=== PATIENT | female | born 1945 | race Caucasian/White ===

== ENCOUNTER 2017-11-24 22:02 | Observation (INO) ==
[2017-11-24 22:50] LABS: Basophils % 0.4 %; Hematocrit 30.9 % (35.3-44.9); Hemoglobin 9.3 g/dL (11.5-15.4); Immature Granulocytes % 0.4 % (0-4); Immature Platelets 5.1 % (1.1-6.1); Lymphocytes # 2.6 K/mcL (0.6-4.6); Lymphocytes % 23.2 %; Mean Corpuscular HGB Conc 30.1 g/dL (31.6-35.5); Mean Corpuscular Volume 76.3 fL (83.0-100.0); Mean Platelet Volume 10.5 fL (9.4-12.4); Monocytes % 8.4 %; Neutrophils # 7.7 K/mcL (1.6-8.9); Platelet Count 449 K/mcL (140-400); Red Blood Count 4.05 M/mcL (3.82-4.97); Segmented Neutrophils % 67.6 %
[2017-11-24 23:05] LABS: Calcium 8.8 mg/dL (8.6-10.3); Potassium 2.9 mEq/L (3.5-5.1)
[2017-11-24 23:20] LABS: Thyroid Stimulating Hormone 4.401 mcIU/mL (0.340-5.600)
--- NOTE | 2017-11-24 23:31 | Emergency Department Note ---
Disposition Clinical Impression: Hypokalemia, Atrial ectopy Disposition: Admitted As Inpatient Condition: Good General Adult HPI - General Chief complaint: ED General Medical Stated complaint: called her at home and said potassium was low Time Seen by Provider: 11/24/17 22:41 Source: patient Mode of arrival: private vehicle Limitations: no limitations Nursing Notes Reviewed: Yes Vital Signs Reviewed: Yes - History of Present Illness HPI Narrative: 71-year-old female presents to the ER after being called for abnormal labs. Reports that she had labs drawn today for an upcoming appointment. She was called because her potassium was low. She states that she is on potassium supplementation but she ran out 3 days ago. She is got it refilled today. She reports having palpitations because normal for her. No chest pain or shortness of breath. No nausea or vomiting. No other complaints. Pt Subjective Complaint: Hypokalemia Onset (ago): Just [employer] Radiation: non-radiation Pain Scale: 0 Improves with: nothing Worsens with: nothing Associated symptoms: Reports: denies other symptoms Treatments Prior to Arrival: none - Related Data Home Medications Medication Instructions Recorded Confirmed Acetaminophen/Diphenhydramine 2 tab PO HS PRN 10/06/15 11/25/17 [Acetaminophen Pm Caplet] Lisinopril [Zestril] 20 mg PO BID 10/06/15 11/25/17 Potassium Chloride 20 meq PO TID 10/06/15 11/25/17 Previous Rx's Medication Instructions Recorded Metoprolol [Lopressor] 12.5 mg PO QPM #30 tablet 10/10/15 Metoprolol [Lopressor] 25 mg PO QAM #30 tablet 10/10/15 Sodium Bicarbonate 1,300 mg PO BID 30 Days tablet 10/10/15 Allergies Allergy/AdvReac Type Severity Reaction Status Date / Time ciprofloxacin Allergy Rash Verified 04/07/16 06:44 infliximab [From Remicade] Allergy Anaphylaxis Verified 10/06/15 18:37 All systems ED: reviewed and negative except as stated. Cardiovascular: Reports: palpitations. Denies: chest pain Respiratory: Denies: dyspnea Gastrointestinal: Denies: abdominal pain, nausea, vomiting Past Medical History - Past Medical History Attestation: Yes The following information was validated with the patient. Source: patient Medical history: Reports: hypertension, renal disease, other Surgical history: Reports: , cholecystectomy, other Psychiatric history: Reports: no psych history - Social History Smoking Status: Never smoker Smokeless Tobacco Status: No Alcohol use: Reports: none Drug use: Reports: none Physical Exam - General Limitations: no limitations General appearance: alert, in no apparent distress - Head Head exam: atraumatic, normocephalic - Eye Eye exam: Present: normal appearance - ENT ENT exam: normal exam - Neck Neck exam: Present: normal inspection, full ROM - Chest Chest inspection: Present: normal inspection, symmetric chest wall rise - Respiratory Respiratory exam: Present: normal lung sounds bilaterally - Cardiovascular Cardiovascular exam: Present: regular rate, irregular rhythm, normal heart sounds - Abdominal Exam Abdominal exam: Present: soft, Non-Tender. Absent: tenderness - Extremities Exam Extremities exam: Present: normal inspection, full ROM - Expanded Upper Extremity Exam Shoulder exam: Present: normal inspection, full ROM Arm exam: Present: normal inspection, full ROM Elbow exam: Present: normal inspection, full ROM Forearm/Wrist exam: Present: normal inspection, full ROM Hand exam: Present: normal inspection, full ROM - Expanded Lower Extremity Exam Hip/Pelvis exam: Present: normal inspection, full ROM Upper leg exam: Present: normal inspection, full ROM Knee exam: Present: normal inspection, full ROM Lower leg exam: Present: normal inspection, full ROM Ankle exam: Present: normal inspection, full ROM Foot/toe exam: Present: normal inspection, full ROM - Skin Skin exam: Present: warm, dry Course Course Narrative: Patient seen and examined. Vital signs reviewed. We will repeat labs, check serum chemistry, magnesium, EKG. Vital Signs Temperature 97.7 F 11/24/17 22:04 Pulse Rate 82 11/24/17 22:04 Respiratory Rate 20 11/24/17 22:04 Blood Pressure 189/71 11/24/17 22:04 O2 Sat by Pulse Oximetry 96 11/24/17 22:04 Temperature 98.1 F 11/25/17 02:49 Pulse Rate 64 11/25/17 02:49 Respiratory Rate 18 11/25/17 02:49 Blood Pressure 161/80 11/25/17 02:49 O2 Sat by Pulse Oximetry 98 11/25/17 02:49 Oxygen Delivery Oxygen Delivery Room Air Medical Decision Making - MDM Narrative Medical decision making narrative: 71-year-old female presents to the ER due to abnormal labs. Potassium of 2.5 this morning. Reports she has been out of her supplementation for 3 days. She is well-appearing here. Her EKG shows sinus rhythm with ectopy. She has a history of palpitations however is unsure what contribution her current hypokalemia may contribute to this. Repeat potassium 2.9. Patient given 40 mEq of IV and oral as well as oral magnesium for level of 1.5. Admitted to the hospitalist service for hypokalemia and telemetry. - Lab Data Lab results reviewed: Yes I reviewed the patient's lab results. Result diagrams: 11/25/17 03:05 11/25/17 03:05 Lab Results 11/24/17 11/24/17 11/24/17 Range/Units 22:40 22:40 22:40 WBC 11.4 H (4.3-11.1) K/mcL RBC 4.05 (3.82-4.97) M/mcL Hgb 9.3 L (11.5-15.4) g/dL Hct 30.9 L (35.3-44.9) % MCV 76.3 L (83.0-100.0) fL MCH 23.0 L (28.0-33.3) pg MCHC 30.1 L (31.6-35.5) g/dL RDW 18.0 H (11.5-14.5) % Plt Count 449 H (140-400) K/mcL MPV 10.5 (9.4-12.4) fL Immature Gran % 0.4 (0-4) % Seg Neutrophils % 67.6 % Lymphocytes % 23.2 % Monocytes % 8.4 % Eosinophils % 0.0 % Basophils % 0.4 % Neutrophils # 7.7 (1.6-8.9) K/mcL Lymphocytes # 2.6 (0.6-4.6) K/mcL Monocytes # 1.0 (0.0-1.3) K/mcL Eosinophils # 0.0 (0.0-0.6) K/mcL Basophils # 0.0 (0.0-0.2) K/mcL Immature Plt Fraction 5.1 (1.1-6.1) % Sodium 140 (136-145) mEq/L Potassium 2.9 L (3.5-5.1) mEq/L Chloride 111 H (98-107) mEq/L Carbon Dioxide 17 L (23-29) mEq/L BUN 10 (8-23) mg/dL Creatinine 1.10 (0.60-1.20) mg/dL Est GFR ( Amer) 60 (> 60) Est GFR (Non-Af Amer) 49 L (> 60) BUN/Creatinine Ratio 9 (6-26) Glucose 103 (70-105) mg/dL Calculated Osmolality 289 (280-300) Calcium 8.8 (8.6-10.3) mg/dL Magnesium 1.5 L (1.6-2.6) mg/dL Troponin I 0.03 (< 0.04) ng/mL TSH 4.401 (0.340-5.600) mcIU/mL - EKG Data EKG #1 EKG attestation: Yes I reviewed and interpreted this EKG. EKG results narrative: EKG demonstrates sinus rhythm with frequent PACs and PVCs with a rate of 89 bpm. Normal axis. Normal intervals. Normal R-wave progression. No gross ST elevations or depressions. No acute ischemic findings. Changes from previous EKG included ectopy. S.B.A.R. - S.B.A.R. Situation: Demographics, MOA Background: Presenting Complaint, Relevant PMH, Meds, & Allergies Assessment: Course and respsone to treatment, Exam Concerns, Patient/Family Expectation, Pertinant Lab Results Recommendation: Barrier(s) to disposition, Recommendation based on pending studies, treatments, or consults S.B.A.R. Report Given to: Dr. Pablo Attestation Statement - Attestation Attestation: I, Tommie Herring MD, personally evaluated this patient and discussed their management with the resident physician. I reviewed the resident's note and agree with the documented findings, medical decision making, and plan of care. 71-year-old female presents to the emergency department with a complaint of abnormal test results. Patient had some routine labs drawn today and her doctor called her and advised her that her potassium was 2.5 and she needed to come to the emergency department for treatment. Patient states that she feels fine and has no symptoms or complaints. She does have a history of hypokalemia and normally takes potassium supplements but apparently recently ran out of her potassium for a few days. On examination patient is a well-developed well-nourished well-appearing elderly female in no acute distress. She is alert and oriented 3. There is no cyanosis or diaphoresis. Breath sounds are clear and equal bilaterally. Heart regular with frequent ectopy. Abdomen soft and nontender with normal bowel sounds. Labs reviewed. EKG shows a normal sinus rhythm with frequent PACs and occasional PVCs. The hospitalist, Dr. Pablo, was consulted and accepted admission of the patient.
[2017-11-24 23:34] LABS: Magnesium 1.5 mg/dL (1.6-2.6)
[2017-11-24] MEDS ORDERED: Magnesium Oxide 400 MG TABLET PO ONE (23:39)
[2017-11-25] MEDS ORDERED: 0.9 % Sodium Chloride 500 ML IVC ONE
[2017-11-25] MEDS ORDERED: Acetaminophen 325 MG TABLET PO PRN (02:42)
[2017-11-25] MEDS ORDERED: Naloxone 0.4 MG/ML INJ IVP PRN (02:44)
--- NOTE | 2017-11-25 03:04 | Internal Med History&Physical ---
Date of Encounter: 11/25/17 Time of Encounter: 02:53 Assessment and Plan (1) Hypokalemia Current visit: Yes Status: Acute 71/female Background history of hypertension/Crohn's disease. Was getting routine labs for a PCP appointment. Noted that patient has a severe hypokalemia along with hypomagnesemia. She was asked to come to ER for further evaluation. She was replaced with the appropriate potassium. Upon arrival her potassium was 2.5 with magnesium of 1.5 Now her potassium is 2.9 and still ongoing IV replacement of potassium. Plan: We will continue replacing potassium for now. We will recheck labs tomorrow morning. Resume home medication. Home in 1-2 days. (2) Crohn disease Current visit: No Status: Acute This may be the cause for her hypokalemia/anemia. She will follow-up with gastroenterology here. Recommended patient to make an appointment with the professional athletes coach. Qualifiers: Gastrointestinal tract location: small and large intestine Digestive disease complication type: without complication Qualified Code(s): K50.80 - Crohn's disease of both small and large intestine without complications (3) Anemia Current visit: No Status: Acute Likely secondary to Crohn's disease. Qualifiers: Anemia type: unspecified type Qualified Code(s): D64.9 - Anemia, unspecified (4) DVT prophylaxis Current visit: Yes Status: Acute SCD This patient has a moderate to severe risk of worsening in spite of being on appropriate medication due to the chronic underlying comorbid status Internal Medicine - H&P: HPI Chief complaint: abnormal labs Admitted From: Emergency Dept Plans for Post Hospital Care: Home History of present illness: 71/F PCP: Dr Cheng Mathews ( residency clinic) GI : Dr Raman Brief PMH: HTN, Crohn's disease. HPI: patient has upcoming appointment with PCP on Monday and for that purpose she was in lab to get some lab work done which was ordered by PCP. Noted that her potassium was extremely low (2.5). She was asked to report ER for replacement of the same. patient does complain of occasional palpitations. Patient denies chest pain, shortness of breath, nausea, vomiting, abdominal pain , dizziness and diarrhea. Workup in the emergency room: Patient was evaluated in the emergency room. She was started on replacement of IV potassium along with oral replacement too. Her magnesium was 1.5 and she was given magnesium by mouth. Reason for admission: Replacement of potassium in a critically low potassium which was found as an incidental finding on the routine lab. Family history: Unremarkable Past Med Surg Social Fam HX - Past Medical History Medical history: hypertension, renal disease, other Psychiatric history: no psych history - Past Surgical History Surgical History: , cholecystectomy, other - Social History Smoking Status: Never smoker Smokeless Tobacco Status: No Alcohol use: none Drug use: none - Family History Mother Hx Family Endocrine Disorder: Yes (DIABETES MELLITUS.) Internal Medicine - H&P: Meds Acetaminophen/Diphenhydramine [Acetaminophen Pm Caplet] 2 tab PO HS PRN [History] Lisinopril [Zestril] 20 mg PO BID 10/06/15 [History] Potassium Chloride 20 meq PO TID 10/06/15 [History] Metoprolol [Lopressor] 12.5 mg PO QPM #30 tablet 10/10/15 [Rx] Metoprolol [Lopressor] 25 mg PO QAM #30 tablet 10/10/15 [Rx] Sodium Bicarbonate 1,300 mg PO BID 30 Days tablet 10/10/15 [Rx] 3 Allergy/AdvReac Type Severity Reaction Status Date / Time ciprofloxacin Allergy Rash Verified 04/07/16 06:44 infliximab [From Remicade] Allergy Anaphylaxis Verified 10/06/15 18:37 All Systems PM: A 10-system review of systems was performed and is negative for pertinent findings except as documented above in the HPI. - Constitutional Constitutional: fatigue, lethargy, no chills, no fever(s), no night sweats - EENT Eyes: no change in vision, no discharge, no pain, no photophobia Ears: no ear discharge, no ear pain, no tinnitus Nose, mouth and throat: no dysphagia, no nasal discharge, no neck pain, no sore throat - Cardiovascular Cardiovascular ROS IM: palpitations, no chest pain, no diaphoresis, no dyspnea, no lightheadedness, no syncope - Respiratory Respiratory: no cough, no dyspnea, no wheezing, no excessive phlegm production - Gastrointestinal Gastrointestinal: no abdominal pain, no diarrhea, no hematemesis, no hematochezia, no melena, no nausea, no vomiting - Genitourinary Genitourinary: no change in urinary stream, no dysuria, no flank pain, no hematuria - Musculoskeletal Musculoskeletal ROS IM: no numbness, no tingling - Integumentary Integumentary IM: no rash, no unusual bruising - Neurological Neurological ROS: no confusion, no convulsions, no focal weakness, no numbness, no tingling, no tremor(s) - Hematologic/Lymphatic Hematologic/Lymphatic: no easy bruising - Constitutional Vitals: Temp Pulse Resp BP Pulse Ox 98.1 F 64 18 161/80 98 11/25/17 02:49 11/25/17 02:49 11/25/17 02:49 11/25/17 02:49 11/25/17 02:49 General appearance: Present: A&O X 3, pleasant, no acute distress, answers questions appropriately - Head Head exam: Present: atraumatic, normocephalic - Eye Eye exam: Present: PERRL, conjuntiva pink, sclera anicteric Pupils: Present: PERRL - Neck Neck exam general surgery: Present: supple, trachea midline. Absent: lymphadenopathy - Respiratory Respiratory exam: Present: CTAB. Absent: accessory muscle use, rales, rhonchi, wheezes - Cardiovascular Cardiovascular exam: Present: RRR, +S1, +S2. Absent: diastolic murmur, gallop, rubs, systolic murmur - GI/Abdominal GI/Abdominal exam: Present: normal bowel sounds, soft, no peritoneal signs. Absent: distended, tenderness - Extremities Exam Extremities exam: Present: warm, radial pulses palpable and symmetrical. Absent : calf tenderness, cyanotic, pedal edema - Neurological Exam Neurological exam: Present: CN II-XII intact, oriented X3, no focal deficits. Absent: pronater drift, facial droop, speech deficit - Skin Skin exam: Present: dry, intact Internal Med - H&P Results - Labs CBC & Chem 7: 11/24/17 22:40 11/24/17 22:40
[2017-11-25 03:57] LABS: Basophils % 0.3 %; Eosinophils % 0.1 %; Hematocrit 28.8 % (35.3-44.9); Hemoglobin 8.4 g/dL (11.5-15.4); Immature Granulocytes % 0.2 % (0-4); Lymphocytes # 2.1 K/mcL (0.6-4.6); Lymphocytes % 22.2 %; Mean Corpuscular HGB Conc 29.2 g/dL (31.6-35.5); Mean Corpuscular Hemoglobin 22.3 pg (28.0-33.3); Mean Corpuscular Volume 76.6 fL (83.0-100.0); Monocytes # 0.9 K/mcL (0.0-1.3); Monocytes % 9.2 %; Neutrophils # 6.3 K/mcL (1.6-8.9); Platelet Count 368 K/mcL (140-400); Red Blood Count 3.76 M/mcL (3.82-4.97); Red Cell Distribution Width 17.9 % (11.5-14.5)
[2017-11-25 04:10] LABS: INR 1.1; Prothrombin Time 11.5 Seconds (9.4-12.1)
[2017-11-25 04:13] LABS: Activated Partial Thrombo Time 30.4 Seconds (26.0-36.0)
[2017-11-25 04:51] LABS: Alanine Aminotransferase 9 Units/L (7-52); Albumin 3.5 g/dL (3.5-5.7); Albumin/Globulin Ratio 1.2 (1.1-2.2); Alkaline Phosphatase 154 Units/L (34-104); Aspartate Amino Transferase 14 Units/L (13-39); BUN/Creatinine Ratio 10 (6-26); Bilirubin,Total 0.5 mg/dL (0.3-1.0); Blood Urea Nitrogen 9 mg/dL (8-23); Calcium 8.5 mg/dL (8.6-10.3); Carbon Dioxide 18 mEq/L (23-29); Chloride 112 mEq/L (98-107); Chol/HDL Ratio 2.6 (0-4.9); Cholesterol 166 mg/dL (< 200); Globulin 2.9 g/dL (2.4-3.5); Glucose 86 mg/dL (70-105); HDL Cholesterol 63 mg/dL (40-59); LDL Cholesterol,Calculated 76 mg/dL (0-99); Magnesium 1.4 mg/dL (1.6-2.6); Osmolality,Calculated 292 (280-300); Phosphorous 2.9 mg/dL (2.7-4.5); Potassium 2.8 mEq/L (3.5-5.1); Sodium 142 mEq/L (136-145); Total Protein 6.4 g/dL (6.4-8.9); Triglycerides 137 mg/dL (< 150); eGFR For African Americans > 60 (> 60); eGFR For Non-African Americans 59 (> 60)
[2017-11-25] MEDS ORDERED: Lisinopril 20 MG TABLET PO SCH (09:00)
[2017-11-25] MEDS ORDERED: Potassium Chloride 20 MEQ, Lidocaine 1% 2 ML in D5% in Water 250 ML IVPB ONE (10:52)
[2017-11-25 11:29] VITALS: BP 153/68
[2017-11-25 15:14] LABS: BUN/Creatinine Ratio 9 (6-26); Blood Urea Nitrogen 10 mg/dL (8-23); Calcium 8.9 mg/dL (8.6-10.3); Carbon Dioxide 21 mEq/L (23-29); Chloride 113 mEq/L (98-107); Glucose 114 mg/dL (70-105); Magnesium 2.1 mg/dL (1.6-2.6); Osmolality,Calculated 294 (280-300); Potassium 3.5 mEq/L (3.5-5.1); Sodium 142 mEq/L (136-145); eGFR For African Americans > 60 (> 60); eGFR For Non-African Americans 51 (> 60)
--- NOTE | 2017-11-25 18:33 | Discharge Summary ---
Date of Encounter: 11/25/17 Time of Encounter: 15:00 - Discharge Diagnosis (1) Hypokalemia Priority: Primary Status: Acute Comments: 1 patient patient's potassium is 2.5 and magnesium was 1.5 T to 2.9- we will replace. Potassium and recheck 2 initiated on oral potassium (2) Anemia Priority: Secondary Status: Acute Comments: This is chronic most likely related to Crohn's disease Qualifiers: Anemia type: unspecified type Qualified Code(s): D64.9 - Anemia, unspecified (3) Crohn disease Priority: Secondary Status: Acute Comments: 1 she will follow-up with gastroenterology as outpatient Qualifiers: Gastrointestinal tract location: small and large intestine Digestive disease complication type: without complication Qualified Code(s): K50.80 - Crohn's disease of both small and large intestine without complications (4) Hypomagnesemia Priority: Primary Status: Acute Comments: 1 1.5 replace magnesium and recheck - Discharge Medications Home Medications: Acetaminophen/Diphenhydramine [Acetaminophen Pm Caplet] 2 tab PO HS PRN [History] Lisinopril [Zestril] 20 mg PO BID 10/06/15 [History] Potassium Chloride 20 meq PO TID 10/06/15 [History] Metoprolol [Lopressor] 12.5 mg PO QPM #30 tablet 10/10/15 [Rx] Metoprolol [Lopressor] 25 mg PO QAM #30 tablet 10/10/15 [Rx] Sodium Bicarbonate 1,300 mg PO BID 30 Days tablet 10/10/15 [Rx] Allergies/Adverse Reactions: 3 Allergy/AdvReac Type Severity Reaction Status Date / Time ciprofloxacin Allergy Rash Verified 04/07/16 06:44 infliximab [From Remicade] Allergy Anaphylaxis Verified 10/06/15 18:37 Date of admission: 11/25/17 01:53 Primary care physician: Zaire Mathews DO Discharging clinician: Brianne Carl Anticipated date of discharge: 11/25/17 - Patient Status Disposition: Left Against Medical Advice Condition: Good Overall status at discharge: other - Discharge Instructions Follow Up With: Zaire Mathews DO [Primary Care Provider] - - Diet and Activity Activity: increase activity as tolerated Diet: other Interval History: 1 patient's potassium was 1.5 and potassium was 2.9. She was given 2 g magnesium and 20 mg of potassium. As patient was receiving medication she began to come agitated requesting to leave. Advised patient she was almost finished with her infusion and would just recheck and she could go home. Patient states I have things to do and I wanted to leave. Disconnected her IV as getting dressed at this time. Again advised patient to finish treatment explained to her that electrolytes imbalances can cause arrhythmias. Said she did not care she was going home she will follow up with her primary care doctor. Advised patient should be leaving AGAINST MEDICAL ADVICE again said she did not care and left Hospital course: Ms. Dimas is a 71 year old female patient has upcoming appointment with PCP on Monday she was getting lab work done was noted that her potassium was low she is advised to report to the ER for replacements. Patient does complain of some occasional palpitations on presentation. She was given IV potassium with oral replacements. He needs it was low 1.5 was given oral replacements. She was admitted for IV potassium replacement and recheck. During the infusion patient became agitated requesting to leave advised patient to stay patient left AGAINST MEDICAL ADVICE - Time Spent with Patient Total time spent providing and/or coordinating discharge services: - Constitutional Vitals: Temp Pulse Resp BP Pulse Ox 98.1 F 57 18 153/68 95 11/25/17 11:28 11/25/17 11:28 11/25/17 11:28 11/25/17 11:28 11/25/17 11:28 General appearance: Present: A&O X 3, pleasant, no acute distress, answers questions appropriately - Head Head exam: Present: atraumatic, normocephalic - Eye Eye exam: Present: PERRL, conjuntiva pink, sclera anicteric Pupils: Present: PERRL - Neck Neck exam general surgery: Present: supple, trachea midline. Absent: lymphadenopathy - Respiratory Respiratory exam: Present: CTAB. Absent: accessory muscle use, rales, rhonchi, wheezes - Cardiovascular Cardiovascular exam: Present: RRR, +S1, +S2. Absent: diastolic murmur, gallop, rubs, systolic murmur - GI/Abdominal GI/Abdominal exam: Present: normal bowel sounds, soft, no peritoneal signs. Absent: distended, tenderness - Extremities Exam Extremities exam: Present: warm, radial pulses palpable and symmetrical. Absent : calf tenderness, cyanotic, pedal edema - Neurological Exam Neurological exam: Present: CN II-XII intact, oriented X3, no focal deficits. Absent: pronater drift, facial droop, speech deficit - Skin Skin exam: Present: dry, intact
--- NOTE | 2017-12-01 07:49 | Electrocardiograph Report ---
[place] [id number] Test Date: 2017-11-24 Pat Name: Sherry Dimas Department: 102 Room: 3B Gender: F Cafe Assistant: Brandon : 1945 Requested By: Tommie Herring Order Number: [id number] Reading MD: Baljeet Blankenship DO Measurements Intervals [place] Rate: 89 P: VT: 0 QRS: 20 QRSD: 88 T: 20 QT: 426 QTc: 472 Interpretive Statements SINUS RHYTHM PACs AND PVCs NONSPECIFIC ST & T-WAVE ABNORMALITY PROLONGED QT INTERVAL Electronically Signed On 12-01-2017 7:48:03 EST by Baljeet Blankenship DO
== END 2017-11-25 14:50 | disposition left against medical advice (07) ==
LOC: EMEROO 22:02 → 3BNU 22:02
PROVIDERS: ADMIT Internal Medicine; ATTEND Registered Nurse

== ENCOUNTER 2018-01-10 19:05 | Inpatient (IN) ==
[2018-01-10] MEDS ORDERED: Ondansetron 4 MG/2 ML VIAL IVP ONE (20:40)
[2018-01-10] MEDS ORDERED: 0.9 % Sodium Chloride 1,000 ML IVC ONE ×2 (20:40→21:22)
[2018-01-10] MEDS ORDERED: Hyoscyamine 0.5 MG/ML MLS IVP ONE (20:42)
[2018-01-10 20:59] LABS: Albumin 4.1 g/dL (3.5-5.7); Albumin/Globulin Ratio 1.3 (1.1-2.2); Bilirubin,Direct 0.2 mg/dL (0.0-0.2); Bilirubin,Indirect 0.2 mg/dL (0.0-1.2); Bilirubin,Total 0.4 mg/dL (0.3-1.0); Calcium 8.2 mg/dL (8.6-10.3); Globulin 3.2 g/dL (2.4-3.5); Potassium 3.4 mEq/L (3.5-5.1); Total Protein 7.3 g/dL (6.4-8.9)
--- NOTE | 2018-01-10 21:17 | Emergency Department Note ---
Disposition Clinical Impression: Dehydration, Metabolic acidosis Crohn's colitis Qualifiers: Digestive disease complication type: unspecified complication Qualified Code(s) : K50.119 - Crohn's disease of large intestine with unspecified complications Acute renal failure Qualifiers: Acute renal failure type: unspecified Qualified Code(s): N17.9 - Acute kidney failure, unspecified Abdominal pain Qualifiers: Abdominal location: generalized Qualified Code(s): R10.84 - Generalized abdominal pain Disposition: Admitted As Inpatient Condition: Fair Time of Disposition: 23:23 Abdominal Pain HPI - General Chief Complaint: ED Abdominal Pain Stated Complaint: Abd pain Time Seen by Provider: 01/10/18 20:04 Source: patient Mode of arrival: ambulatory Limitations: no limitations Nursing Notes Reviewed: Yes Vital Signs Reviewed: Yes - History of Present Illness HPI Narrative: Patient is a 72-year-old female who presents to [facility] ED with a chief complaint of generalized abdominal pain, persistent nausea vomiting and diarrhea for the last 2 weeks. Patient states she has a history of Crohn's disease and this feels like a Crohn's flareup as well as worsening kidney function. 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 Raman in the past but is not currently on any Crohn's medications. States she has felt intermittent hot and cold. Denies any chest pain, difficulty breathing. Patient has had multiple abdominal surgeries in the past. Pt Subjective Complaint: abdominal pain Onset (ago): week(s) Consistency: Worsening Location: diffuse Pain Severity: moderate Pain Scale: 8 Quality: cramping Radiation: none Migration to: no migration Improves with: nothing Worsens with: nothing Associated symptoms: Reports: nausea, vomiting, diarrhea. Denies: constipation , dysuria Treatments prior to arrival: none - Related Data Home Medications Medication Instructions Recorded Confirmed Acetaminophen/Diphenhydramine 2 - 3 tab PO HS 10/06/15 01/10/18 [Acetaminophen Pm Caplet] Lisinopril [Zestril] 20 mg PO BID 10/06/15 01/10/18 Potassium Chloride 20 meq PO TID 10/06/15 01/10/18 Metoprolol [Lopressor] 12.5 mg PO BID 01/10/18 01/10/18 Ranitidine HCl [Acid Dump Truck Driver Off [address]] 150 mg PO DAILY 01/10/18 01/10/18 Sodium Bicarbonate 1,300 mg PO BID 01/10/18 01/10/18 Allergies Allergy/AdvReac Type Severity Reaction Status Date / Time ciprofloxacin Allergy Rash Verified 04/07/16 06:44 infliximab [From Remicade] Allergy Anaphylaxis Verified 10/06/15 18:37 All systems ED: reviewed and negative except as stated. Abdominal Pain PMH - Past Medical History Medical history: Reports: hyperlipidemia, hypertension, renal disease, other Female Surgical History: Reports: , cholecystectomy, hysterectomy, Tonsillectomy, other Psychiatric history: Reports: anxiety, depression - Social History Smoking status: Former smoker Alcohol use: Reports: rarely Drug use: Reports: none Physical Exam - General Limitations: no limitations General appearance: alert - Head Head exam: atraumatic, normocephalic, normal inspection - Eye Eye exam: Present: normal appearance, EOMI - ENT ENT exam: normal exam, normal oropharynx, mucous membranes moist - Neck Neck exam: Present: normal inspection, full ROM, trachea midline - Chest Chest inspection: Present: normal inspection, symmetric chest wall rise - Respiratory Respiratory exam: Present: normal lung sounds bilaterally - Cardiovascular Cardiovascular exam: Present: normal rhythm, tachycardia - Abdominal Exam Abdominal exam: Present: soft, tenderness, normal bowel sounds Abdominal tenderness: Present: diffuse, moderate - Extremities Exam Extremities exam: Present: normal inspection, full ROM. Absent: tenderness, pedal edema - Back Exam Back exam: Present: normal inspection, full ROM, tenderness (chronic) - Neurological Exam Neurological exam: Present: alert, oriented X3 - Psychiatric Psychiatric exam: Present: normal affect, normal mood - Skin Skin exam: Present: warm, dry, intact, normal color Course Course Narrative: Patient seen and examined. Patient went generalized abdominal pain and history of Crohn's disease. She has been having persistent nausea, vomiting, diarrhea so there is concern for dehydration. IV fluid 1 L bolus ordered. Abdominal labs, CT abdomen and pelvis without contrast ordered. Levsin ordered for pain and Zofran for nausea. - Reevaluation(s) Reevaluation #1: Patient's lab work shows acute renal failure with a creatinine greater than 8. A second liter of IV fluids ordered and a second IV was placed. A dose of 125 mg Solu-Medrol given. CT of the abdomen/pelvis shows mild colitis. Patient ordered a dose of Zosyn. I discussed with hospitalist Dr. Fu who has accepted patient for admission. Time: 23:22 Vital Signs Temperature 97.3 F L 01/10/18 19:07 Pulse Rate 138 01/10/18 19:07 Respiratory Rate 22 01/10/18 19:07 Blood Pressure 124/85 01/10/18 19:07 O2 Sat by Pulse Oximetry 97 01/10/18 19:07 Temperature 97.3 F L 01/10/18 19:07 Pulse Rate 88 01/10/18 23:08 Respiratory Rate 16 01/10/18 23:08 Blood Pressure 119/50 01/10/18 23:08 O2 Sat by Pulse Oximetry 98 01/10/18 23:08 Oxygen Delivery Oxygen Delivery Room Air Abdominal Pain - Medical Records Medical records reviewed: Yes I reviewed the patient's medical records. - Lab Data Lab results reviewed: Yes I reviewed the patient's lab results. Result diagrams: 01/10/18 21:35 01/10/18 20:17 Lab Results 01/10/18 01/10/18 01/10/18 Range/Units 20:17 20:17 21:35 WBC 19.5 H (4.3-11.1) K/mcL RBC 5.15 H (3.82-4.97) M/mcL Hgb 12.4 (11.5-15.4) g/dL Hct 42.8 (35.3-44.9) % MCV 83.1 D (83.0-100.0) fL MCH 24.1 L (28.0-33.3) pg MCHC 29.0 L (31.6-35.5) g/dL RDW 20.5 H (11.5-14.5) % Plt Count 386 (140-400) K/mcL MPV 10.5 (9.4-12.4) fL Immature Gran % 0.9 (0-4) % Seg Neutrophils % 86.5 % Lymphocytes % 7.5 % Monocytes % 4.9 % Eosinophils % 0.0 % Basophils % 0.2 % Neutrophils # 16.9 H (1.6-8.9) K/mcL Lymphocytes # 1.5 (0.6-4.6) K/mcL Monocytes # 1.0 (0.0-1.3) K/mcL Eosinophils # 0.0 (0.0-0.6) K/mcL Basophils # 0.0 (0.0-0.2) K/mcL Nucleated RBCs/100 WBC 0.2 H (0) /100 WBC Platelet Estimate Normal (Normal) Immature Plt Fraction 2.6 (1.1-6.1) % Sodium 136 (136-145) mEq/L Potassium 3.4 L (3.5-5.1) mEq/L Chloride 112 H (98-107) mEq/L Carbon Dioxide 6 L* (23-29) mEq/L BUN 60 H (8-23) mg/dL Creatinine 8.24 H (0.60-1.20) mg/dL Est GFR ( Amer) 6 L (> 60) Est GFR (Non-Af Amer) 5 L (> 60) BUN/Creatinine Ratio 7 (6-26) Glucose 133 H (70-105) mg/dL Calculated Osmolality 301 H (280-300) Lactic Acid (0.5-2.2) mmol/L Calcium 8.2 L (8.6-10.3) mg/dL Total Bilirubin 0.4 (0.3-1.0) mg/dL Direct Bilirubin 0.2 (0.0-0.2) mg/dL Indirect Bilirubin 0.2 (0.0-1.2) mg/dL AST 9 L (13-39) Units/L ALT 10 (7-52) Units/L Alkaline Phosphatase 212 H (34-104) Units/L Serum Total Protein 7.3 (6.4-8.9) g/dL Albumin 4.1 (3.5-5.7) g/dL Globulin 3.2 (2.4-3.5) g/dL Albumin/Globulin Ratio 1.3 (1.1-2.2) Amylase 277 H (29-103) Units/L Lipase 224 H (11-82) Units/L Specimen Rejected MCV Delta 01/10/18 Range/Units 21:48 WBC (4.3-11.1) K/mcL RBC (3.82-4.97) M/mcL Hgb (11.5-15.4) g/dL Hct (35.3-44.9) % MCV (83.0-100.0) fL MCH (28.0-33.3) pg MCHC (31.6-35.5) g/dL RDW (11.5-14.5) % Plt Count (140-400) K/mcL MPV (9.4-12.4) fL Immature Gran % (0-4) % Seg Neutrophils % % Lymphocytes % % Monocytes % % Eosinophils % % Basophils % % Neutrophils # (1.6-8.9) K/mcL Lymphocytes # (0.6-4.6) K/mcL Monocytes # (0.0-1.3) K/mcL Eosinophils # (0.0-0.6) K/mcL Basophils # (0.0-0.2) K/mcL Nucleated RBCs/100 WBC (0) /100 WBC Platelet Estimate (Normal) Immature Plt Fraction (1.1-6.1) % Sodium (136-145) mEq/L Potassium (3.5-5.1) mEq/L Chloride (98-107) mEq/L Carbon Dioxide (23-29) mEq/L BUN (8-23) mg/dL Creatinine (0.60-1.20) mg/dL Est GFR ( Amer) (> 60) Est GFR (Non-Af Amer) (> 60) BUN/Creatinine Ratio (6-26) Glucose (70-105) mg/dL Calculated Osmolality (280-300) Lactic Acid 2.0 (0.5-2.2) mmol/L Calcium (8.6-10.3) mg/dL Total Bilirubin (0.3-1.0) mg/dL Direct Bilirubin (0.0-0.2) mg/dL Indirect Bilirubin (0.0-1.2) mg/dL AST (13-39) Units/L ALT (7-52) Units/L Alkaline Phosphatase (34-104) Units/L Serum Total Protein (6.4-8.9) g/dL Albumin (3.5-5.7) g/dL Globulin (2.4-3.5) g/dL Albumin/Globulin Ratio (1.1-2.2) Amylase (29-103) Units/L Lipase (11-82) Units/L Specimen Rejected - Radiology Data Radiology results reviewed: Yes I reviewed the patient's radiology results. Abdomen/Pelvis CT 01/10/18 21:02 IMPRESSION: 1. Findings of mild diffuse colitis, likely infectious or inflammatory. 2. Stable moderate hiatal hernia. D/ / Giullermo Mccormick / Guillermo Mccormick Interpreting Provider: Guillermo Mccormick Critical Care Time Critical Care Time: Yes Total Critical Care Time: 35 Attestation: The high probability of a clinically significant, sudden or life threatening deterioration of the [GI] system(s) required my full and direct attention, intervention and personal management. The aggregate critical care time was [35] minutes. This time is in addition to time spent performing reported procedures but includes the following: [x] Data Review and interpretation [x] Patient assessment and monitoring of vital signs [x] Documentation [x] Medication orders and management Attestation Statement - Attestation Attestation: I examined this patient and my medical decision-making was reviewed with the Resident Physician, Dr. Choudhary. I agree with the documented findings, disposition and treatment plan as described except to the extent set forth below. Patient is a 72-year-old white female who presents to the emergency department with a two-week history of nausea vomiting and diarrhea. Patient does have a history of colitis and has had multiple abdominal surgeries in the past related to various complications of her Crohn's disease. Patient is not on any specific medications for her Crohn's and recently was seen by her doctor for her GI symptoms and was placed on a short course of steroids. Patient states she did get some mild improvement at the onset but as she tapered had return of her symptoms. Patient states her family has had vomiting and diarrheal illness at home and she began with similar symptoms 2 weeks ago and has not improved. Patient states she has not had much appetite decreased by mouth intake and generally weak all over. Patient is quite tachycardic on arrival to the ED but blood pressure stable. I agree with patient's physical exam findings as documented. Patient was placed on night monitor and IV fluid resuscitation was initiated and she was given pain meds and antiemetics. Lab evaluation was obtained and CT imaging of her abdomen and pelvis was performed without contrast. Patient's lab findings show leukocytosis with left shift, has significant acute kidney injury with a creatinine greater than 8 and elevated BUN/creatinine. Patient with a metabolic acidosis with bicarbonate 26. Blood sugars normal. CT scan shows evidence of colitis no other acute abdominal pathology was appreciated. Patient was covered with antibiotics for the colitis for any possible bacterial cause with the ongoing length of symptoms, was given a dose of steroids for possible coexistent Crohn's flare. Patient's heart rate is improving with IV fluids. Case was discussed with hospitalist who accepted patient for admission.
[2018-01-10 21:43] LABS: Basophils % 0.2 %; Hematocrit 42.8 % (35.3-44.9); Hemoglobin 12.4 g/dL (11.5-15.4); Immature Granulocytes % 0.9 % (0-4); Immature Platelets 2.6 % (1.1-6.1); Lymphocytes # 1.5 K/mcL (0.6-4.6); Lymphocytes % 7.5 %; Mean Corpuscular Hemoglobin 24.1 pg (28.0-33.3); Mean Corpuscular Volume 83.1 fL (83.0-100.0); Mean Platelet Volume 10.5 fL (9.4-12.4); Monocytes % 4.9 %; Neutrophils # 16.9 K/mcL (1.6-8.9); Nucleated Red Blood Cells 0.2 /100 WBC (0); Platelet Count 386 K/mcL (140-400); Red Blood Count 5.15 M/mcL (3.82-4.97); Red Cell Distribution Width 20.5 % (11.5-14.5); Segmented Neutrophils % 86.5 %
[2018-01-10 22:10] LABS: Platelet Estimate Normal (Normal)
[2018-01-10] MEDS ORDERED: Piperacillin/Tazobactam 3.375 GM in 0.9 % Sodium Chloride Mini Bag 100 ML IVPB ONE (22:23)
[2018-01-10] MEDS ORDERED: methylPREDNISolone 125 MG/2 ML VIAL IVP ONE (22:23)
[2018-01-10] MEDS ORDERED: SODIUM CHLORIDE 0.9% IVPB ONE (22:51)
[2018-01-10] MEDS ORDERED: KETAMINE IVPB ONE (22:51)
--- NOTE | 2018-01-10 23:24 | Event Note ---
Date of Encounter: 01/11/18 Time of Encounter: 23:24 Patient was seen and examined. I agree with the H&P as written by the Resident Physician. Patient with signs of dehydration on exam and on labs. generalized abdominal tenderness but no rebounds. Says not urinated in a week or so. Tells me she was on Pentasa, Humira, and Remicade at some point in the past but nothing the last 5 years or so. Has acute renal failure due to GI losses. ??crohn's flair. Will admit and aggressively hydrate. Will add some bicarbs after 2 L c/s GI (sees Dr. Raman) and nephrology check stool panel Check ESR/CRP IV abx IV steroids for crohn's flare Repeat labs in 2-4 hours to assess kidney function
[2018-01-10] MEDS ORDERED: Acetaminophen 325 MG TABLET PO PRN (23:45)
[2018-01-10] MEDS ORDERED: Naloxone 0.4 MG/ML INJ IVP PRN (23:45)
--- NOTE | 2018-01-11 00:19 | Internal Med History&Physical ---
Date of Encounter: 01/11/18 Time of Encounter: 23:20 Assessment and Plan (1) Acute renal failure superimposed on stage 3 chronic kidney disease Current visit: Yes Status: Acute Creatinine 8.24, baseline appears around 1.0. BUN 60. History of CTD stage III , follows with Dr. Mary Jo CHEUNG in the setting of GI loss/colitis with nausea, vomiting, diarrhea, and very poor oral intake. Patient appears very dehydrated Received 2 L normal saline emergency department. We will recheck labs. Continue IV hydration - switch to bicarb in half NS with CO2 of 6 Avoid nephrotoxins, renally dose medications as needed Consult nephrology for further recommendations and management Qualifiers: Acute renal failure type: unspecified Qualified Code(s): N17.9 - Acute kidney failure, unspecified; N18.3 - Chronic kidney disease, stage 3 (moderate) ; N18.3 - Chronic kidney disease, stage 3 (moderate) (2) Colitis Current visit: Yes Status: Acute History of Crohn's disease. Previously following with Dr. Raman. CT shows mild colitis, infectious versus inflammatory etiology. No evidence of bowel obstruction With her history I am more inclined to think this is a Crohn's flare, however infectious source cannot be ruled out at this time. GI panel pending - Patient is afebrile. Leukocytosis at 19.5, however interpretation is complicated because the patient reports taking prednisone at home recently Given steroids in the emergency department. We will continue methylprednisolone 60 mg IV daily CRP and ESR are unremarkable. Provide pain control and nausea control Received Zosyn in ED, will continue for now as patient has an allergy to Cipro. Consult gastroenterology for further recommendations and management (3) Metabolic acidosis Current visit: Yes Status: Chronic CO2 is 6, with a gap of 18. Likely secondary to renal failure and GI losses. Continue to provide IV hydration and symptomatic control. Potassium mildly decreased at 3.4. Mag 1.5. Replace potassium and magnesium. Add bicarb in half NS for replacement of CO2 (4) Crohn disease Current visit: Yes Status: Acute History of Crohn's disease, currently not on any preventative therapies. See plan as above for colitis. Qualifiers: Gastrointestinal tract location: small and large intestine Digestive disease complication type: without complication Qualified Code(s): K50.80 - Crohn's disease of both small and large intestine without complications (5) Hypertension Current visit: Yes Status: Acute Normotensive. Denies chest pain, headaches, changes in vision. Continue home meds Qualifiers: Hypertension type: unspecified Qualified Code(s): I10 - Essential (primary ) hypertension (6) DVT prophylaxis Current visit: Yes Status: Acute Subcutaneous heparin Internal Medicine - H&P: HPI Chief complaint: Abdominal pain Admitted From: Emergency Dept History of present illness: Ms. Dimas is a 72 year old female with PMH of Crohn's disease, hypertension, hyperlipidemia, and CKD stage 3, presented to the emergency department with a two-week history of generalized crampy abdominal pain. Associated with nausea, vomiting, diarrhea, and chills. Emesis is nonbilious and nonbloody. There are no aggravating or alleviating factors. Also reporting chills, fatigue, lightheadedness, and generalized back pain. She states the last time she felt like this she was treated for Crohn's flare and poor kidney function. She has had very poor oral intake of food or fluids. She reports decreased urine output. She states that over the past several days she has taken a prednisone taper that she had home. She denies recent antibiotic use. Denies taking any preventative medications for Crohn's. Previously tried Remicade. Denies other complaints. Denies change in vision, chest pain, dyspnea, cough, hematochezia, melena, dysuria, hematuria, or leg pain/swelling. Past Med Surg Social Fam HX - Past Medical History Medical history: hyperlipidemia, hypertension, renal disease, other Psychiatric history: anxiety, depression - Past Surgical History Surgical History: , cholecystectomy, other - Social History Smoking Status: Former smoker Smokeless Tobacco Status: No Alcohol use: rarely Drug use: none - Family History Mother Adopted: No Living Status: Hx Family Cardiac Disorders: Yes Hx Family Respiratory Disorders: No Hx Family Cancer: No Hx Family GI Disorders: Yes Hx Family Endocrine Disorder: Yes (DIABETES MELLITUS.) Hx Family Neuromuscular Disorders: No Hx Family Neurologic Disorders: Yes (STROKE) Hx Family HEENT Disorders: No Hx Family Autoimmune Disorders: No Internal Medicine - H&P: Meds Acetaminophen/Diphenhydramine [Acetaminophen Pm Caplet] 2 - 3 tab PO HS [History] Lisinopril [Zestril] 20 mg PO BID 10/06/15 [History] Potassium Chloride 20 meq PO TID 10/06/15 [History] Metoprolol [Lopressor] 12.5 mg PO BID 01/10/18 [History] Ranitidine HCl [Acid Coal Picker] 150 mg PO DAILY 01/10/18 [History] Sodium Bicarbonate 1,300 mg PO BID 01/10/18 [History] 3 Allergy/AdvReac Type Severity Reaction Status Date / Time ciprofloxacin Allergy Rash Verified 04/07/16 06:44 infliximab [From Remicade] Allergy Anaphylaxis Verified 10/06/15 18:37 All Systems PM: A 10-system review of systems was performed and is negative for pertinent findings except as documented above in the HPI. - Constitutional Vitals: Temp Pulse Resp BP Pulse Ox 97.3 F L 88 18 120/62 98 01/10/18 19:07 01/10/18 23:08 01/10/18 23:41 01/10/18 23:41 01/10/18 23:08 General appearance: Present: mild distress, A&O X 3, answers questions appropriately - Head Head exam: Present: atraumatic, normocephalic - Eye Eye exam: Present: EOMI, PERRL, conjuntiva pink, sclera anicteric - ENT ENT exam: Present: mucous membranes dry - Neck Neck exam general surgery: Present: supple, trachea midline. Absent: lymphadenopathy - Respiratory Respiratory exam: Present: CTAB. Absent: accessory muscle use, rales, rhonchi, wheezes - Cardiovascular Cardiovascular exam: Present: RRR, +S1, +S2. Absent: diastolic murmur, systolic murmur - GI/Abdominal GI/Abdominal exam: Present: guarding, normal bowel sounds, tenderness (Diffuse) , no peritoneal signs. Absent: distended, firm, rebound, rigid - Extremities Exam Extremities exam: Present: warm, radial pulses palpable and symmetrical. Absent : calf tenderness, cyanotic, pedal edema - Neurological Exam Neurological exam: Present: CN II-XII intact, oriented X3, no focal deficits. Absent: facial droop, speech deficit - Skin Skin exam: Present: dry, intact Internal Med - H&P Results - Labs CBC & Chem 7: 01/11/18 01:06 01/11/18 01:06
[2018-01-11] MEDS: *HR* Heparin 5,000 UNIT/ML VIAL SQ SCH ×4 (00:34→20:20)
[2018-01-11] MEDS ORDERED: 0.9 % Sodium Chloride 1,000 ML IVC ONE (00:48)
[2018-01-11] MEDS ORDERED: 0.9 % Sodium Chloride w KCl 20 MEQ/1,000 ML MLS IVC SCH (01:00)
[2018-01-11 01:23] LABS: Basophils % 0.1 %; Hematocrit 35.7 % (35.3-44.9); Lymphocytes # 0.9 K/mcL (0.6-4.6); Lymphocytes % 6.3 %; Mean Corpuscular HGB Conc 29.4 g/dL (31.6-35.5); Mean Corpuscular Hemoglobin 24.1 pg (28.0-33.3); Mean Corpuscular Volume 82.1 fL (83.0-100.0); Monocytes # 0.3 K/mcL (0.0-1.3); Monocytes % 1.8 %; Neutrophils # 12.9 K/mcL (1.6-8.9); Nucleated Red Blood Cells 0.1 /100 WBC (0); Platelet Count 308 K/mcL (140-400); Red Blood Count 4.35 M/mcL (3.82-4.97); Segmented Neutrophils % 90.8 %
[2018-01-11 01:26] LABS: Hemoglobin 10.5 g/dL (11.5-15.4)
[2018-01-11 01:49] LABS: Calcium 7.3 mg/dL (8.6-10.3); Magnesium 1.5 mg/dL (1.6-2.6); Potassium 3.5 mEq/L (3.5-5.1)
[2018-01-11] MEDS: Ondansetron 4 MG/2 ML VIAL IVP PRN ×3 (02:01→15:24)
[2018-01-11] MEDS ORDERED: Sodium Bicarbonate 50 MEQ in 0.45 % Sodium Chloride 1,000 ML IVC SCH (02:15)
[2018-01-11] MEDS: *HR* HYDROcodone/Acet 5/325 mg TABLET PO PRN ×3 (02:39→15:24)
[2018-01-11 07:16] LABS: Albumin 3.5 g/dL (3.5-5.7); Albumin/Globulin Ratio 1.4 (1.1-2.2); Bilirubin,Total 0.3 mg/dL (0.3-1.0); Calcium 7.6 mg/dL (8.6-10.3); Globulin 2.5 g/dL (2.4-3.5); Potassium 3.6 mEq/L (3.5-5.1)
[2018-01-11 07:29] LABS: Basophils % 0.1 %; Hematocrit 34.3 % (35.3-44.9); Immature Granulocytes % 1.2 % (0-4); Lymphocytes # 0.9 K/mcL (0.6-4.6); Lymphocytes % 11.2 %; Mean Corpuscular HGB Conc 29.2 g/dL (31.6-35.5); Mean Corpuscular Hemoglobin 23.7 pg (28.0-33.3); Mean Corpuscular Volume 81.3 fL (83.0-100.0); Mean Platelet Volume 10.9 fL (9.4-12.4); Monocytes # 0.1 K/mcL (0.0-1.3); Monocytes % 0.9 %; Nucleated Red Blood Cells 0.4 /100 WBC (0); Platelet Count 266 K/mcL (140-400); Red Blood Count 4.22 M/mcL (3.82-4.97); Segmented Neutrophils % 86.6 %
[2018-01-11] MEDS ORDERED: Lisinopril 20 MG TABLET PO SCH (09:00)
[2018-01-11] MEDS ORDERED: methylPREDNISolone 125 MG/2 ML VIAL IVP SCH (09:00)
[2018-01-11] MEDS ORDERED: metroNIDAZOLE 500 MG TABLET PO SCH (09:00)
[2018-01-11] MEDS: MethylPREDNISolone 40 MG/ML VIAL IVP SCH ×3 (09:13→23:14)
[2018-01-11] MEDS: Famotidine 20 MG TABLET PO SCH (09:16)
[2018-01-11 09:54] LABS: Estimated Average Glucose 108 mg/dl; Hemoglobin A1C 5.4 %
--- NOTE | 2018-01-11 10:51 | Nephrology Consult Note ---
Date of Encounter: 01/11/18 Time of Encounter: 10:20 Assessment and Plan (1) FLORENTIN (acute kidney injury) Current Visit: No Status: Acute Oliguric FLORENTIN in setting of GI losses superimposed on CKD 3, baseline creat 1.2- 1.5. Will get stat Renal US, place lopez catheter. Continue current IV fluids.Avoid nephrotoxins, Accurate I&O's. No immediate need for HD. Will continue to monitor. History of Present Illness - Reason for Consult Acute Kidney Injury - History of Present Illness Ms. Dimas is a 72 year old female who presented to ER yesterday with abdominal pain, vomiting, diarrhea for past two weeks with a 33 pound weight loss. States for past several days had not been able to void urine and has not emptied bladder since arriving at hospital. Other PMH-crohn's, hyperlipidemia, hypertension, renal disease, , cholecystectomy, hysterectomy, Tonsillectomy, anxiety, depression. Initial Creatinine 8.25, today 7.47. BUN 60. CO2 6, gap 18. Received 2 liters normal saline. Then IV 0.45 NS with Bicarb 50 meq, now changed to D5W with 150 meq Bicarb at 125 cc/hr. CT Abd/Pelvis- mild diffuse colitis, likely infectious or inflammatory. Remains oliguric, though states was able to eat breakfast this morning and keep down. She denies any NSAID use. She was seen in hospital back in March 2016 for similar situation of FLORENTIN superimposed on CKD, baseline creat 1.2-1.5 and was followed by GI for Crohn's flare. Past Med Surg Social Fam HX - Past Medical History Medical history: hyperlipidemia, hypertension, renal disease, other Psychiatric history: anxiety, depression - Past Surgical History Surgical History: , cholecystectomy, other - Social History Smoking Status: Former smoker Smokeless Tobacco Status: No Alcohol use: rarely Drug use: none - Family History Mother Adopted: No Living Status: Hx Family Cardiac Disorders: Yes Hx Family Respiratory Disorders: No Hx Family Cancer: No Hx Family GI Disorders: Yes Hx Family Endocrine Disorder: Yes (DIABETES MELLITUS.) Hx Family Neuromuscular Disorders: No Hx Family Neurologic Disorders: Yes (STROKE) Hx Family HEENT Disorders: No Hx Family Autoimmune Disorders: No Medications and Allergies Acetaminophen/Diphenhydramine [Acetaminophen Pm Caplet] 2 - 3 tab PO HS 12/29/ 15 [History] Lisinopril [Zestril] 20 mg PO BID 10/06/15 [History] Potassium Chloride 20 meq PO TID 10/06/15 [History] Metoprolol [Lopressor] 12.5 mg PO BID 01/10/18 [History] Ranitidine HCl [Acid Second Cutter] 150 mg PO DAILY 01/10/18 [History] Sodium Bicarbonate 1,300 mg PO BID 01/10/18 [History] 3 Allergy/AdvReac Type Severity Reaction Status Date / Time ciprofloxacin Allergy Rash Verified 04/07/16 06:44 infliximab [From Remicade] Allergy Anaphylaxis Verified 10/06/15 18:37 Review of Systems All Systems: reviewed and no additional remarkable complaints except as stated Exam - Vital Signs Vital signs: Initial Vital Signs Temp Pulse Resp BP Pulse Ox 97.3 F L 138 22 124/85 97 01/10/18 19:07 01/10/18 19:07 01/10/18 19:07 01/10/18 19:07 01/10/18 19:07 Vital Signs - Last 8 Hours Temp Pulse Resp BP Pulse Ox 01/11/18 07:13 97.8 F 75 18 104/62 94 01/11/18 04:27 98.1 F 80 18 98/45 100 Intake and Output 01/10/18 01/11/18 01/11/18 23:59 07:59 15:59 Intake Total 0 / 0 480 / 480 Output Total 0 / 0 Balance 0 / 0 480 / 480 Intake: Oral 0 / 0 480 / 480 Output: Urine 0 / 0 Other: Meal Breakfast Percent of Meal Consumed 30% # Bowel Movements 0 Weight 82.3 kg Patient Weight 01/11/18 23:59 Weight 82.3 kg - General Appearance General appearance: well-developed, well-nourished, appears started age EENT: mucous membranes moist Neck: no JVD Respiratory: clear Cardiology: no edema, regular rate, regular rhythm Gastrointestinal: normoactive bowel sounds, tenderness Integumentary: warm and dry Neurologic: alert and oriented x3 Results - Lab Results 01/11/18 06:33 01/11/18 06:33 Most recent lab results Calcium 7.6 mg/dL (8.6-10.3) L 01/11/18 06:33 Magnesium 1.5 mg/dL (1.6-2.6) L 01/11/18 01:06 Consult Discharge Plan - Plan Referrals: Zaire Mathews DO [Primary Care Provider] - (call upon discharge...)
[2018-01-11] MEDS: Piperacillin/Tazobactam 3.375 GM in 0.9 % Sodium Chloride Mini Bag 100 ML IVPB SCH ×2 (11:15→20:20)
[2018-01-11] MEDS: Sodium Bicarbonate 150 MEQ in D5% in Water 1,000 ML IVC SCH ×2 (11:15→23:14)
--- NOTE | 2018-01-11 11:18 | Gastroenterology Consult Note ---
<Eren Mclean - Last Filed: 01/11/18 11:14> Date of Encounter: 01/11/18 Time of Encounter: 10:25 - Assessment and plan (1) Colitis Status: Acute Assessment and plan: CT A/P with findings of mild diffuse colitis, likely infectious or inflammatory. Continue Solu-Medrol. Recommend colonoscopy tomorrow, but patient refuses colonoscopy at this time. She states she may be agreeable once her pain is improved. Continue antibiotics. (2) Crohn disease Status: Acute Assessment and plan: Currently not on any home meds for her Crohn's disease, she was on Remicade few years ago and had three infusions. The first two infusions were fine, but per patient the last one was infused too fast and she developed muscle stiffness down her neck. Patient was then prescribed Humira injection but she never took them because of the co-pay that she had to pay. Last colonoscopy 03/2016 with no active Crohn's disease. Continue Solu-Medrol. Recommend colonoscopy, but patient refuses at this time. Qualifiers: Gastrointestinal tract location: small and large intestine Digestive disease complication type: without complication Qualified Code(s): K50.80 - Crohn's disease of both small and large intestine without complications (3) Nausea & vomiting Status: Acute Assessment and plan: Continue anti-emetics. Plan for EGD tomorrow to r/o esophagitis, gastritis, duodenitis, PUD, MW tear, or AVM. Keep NPO at midnight. Qualifiers: Vomiting type: unspecified Vomiting Intractability: non-intractable Qualified Code(s): R11.2 - Nausea with vomiting, unspecified - Time Spent With Patient Total time spent is greater than 50% in coordination of care (as documented) at patient's floor/unit and/or counseling patient: GI History of Present Illness - Data of Consult Patient: known to practice within the last 3 years Consult date: 01/11/18 Requesting Physician: Beverly Horne MD - Consult Narrative Reason for consult: Abdominal pain, colitis, hx of Crohn's History of present illness: Ms. Dimas is a 72 year old female with PMHx of Crohn's disease, bowel rescection x2, HTN, HLD, CKD stage III who presented to the emergency department with a two-week history of generalized crampy abdominal pain. Associated with nausea, vomiting, diarrhea, and chills. Emesis is nonbilious and nonbloody. There are no aggravating or alleviating factors. She has had very poor oral intake of food or fluids. She states that over the past several days she has taken a prednisone taper that she had home. She denies recent antibiotic use or any preventative medications for Crohn's. CT A/P with findings of mild diffuse colitis, likely infectious or inflammatory. Currently not on any home meds for her Crohn's disease, she was on Remicade few years ago and had three infusions. The first two infusions were fine, but per patient the last one was infused too fast and she developed muscle stiffness down her neck. Patient was then prescribed Humira injection but she never took them because of the co-pay that she had to pay. Procedures: Colonoscopy 04/07/2016 Dr. Raman: No colitis seen, ileo-clonic anastomosis narrowed, but no active Crohn's seen, s/p dilation. Colonoscopy 07/22/2014 Dr. Raman: Inflammation at the anastomosis, at the roly- terminal ileum, and a small patch in the mid sigmoid colon. Colonic mucosa w/ mild architectural distortion and acute inflammation. NSAIDs: None Anticoagulation: None Past Med Surg Social Fam HX - Past Medical History Medical history: hyperlipidemia, hypertension, renal disease, other Psychiatric history: anxiety, depression - Past Surgical History Surgical History: , cholecystectomy, other - Social History Smoking Status: Former smoker Smokeless Tobacco Status: No Alcohol use: rarely Drug use: none - Family History Mother Adopted: No Living Status: Hx Family Cardiac Disorders: Yes Hx Family Respiratory Disorders: No Hx Family Cancer: No Hx Family GI Disorders: Yes Hx Family Endocrine Disorder: Yes (DIABETES MELLITUS.) Hx Family Neuromuscular Disorders: No Hx Family Neurologic Disorders: Yes (STROKE) Hx Family HEENT Disorders: No Hx Family Autoimmune Disorders: No - Gastrointestinal Gastrointestinal: Present: as per HPI - Constitutional Constitutional: as per HPI - EENT Eyes: as per HPI Ears: Present: as per HPI Nose, mouth and throat: Present: as per HPI - Cardiovascular Cardiovascular ROS: Present: as per HPI - Respiratory Respiratory IM: Present: as per HPI - Genitourinary Genitourinary: Absent: change in color, Urinary frequency - Neurological ROS Neurological GI: Present: as per HPI - Hematologic/Lymphatic Hematologic/Lymphatic pediatric: Present: as per HPI - Musculoskeletal Musculoskeletal ROS GI: Present: as per HPI - Integumentary Integumentary GI: Present: as per HPI - Psychiatric ROS Psychiatric GI: Present: as per HPI - Endocrine Endocrine IM: Present: as per HPI - Constitutional Vitals: Temp Pulse Resp BP Pulse Ox 97.8 F 75 18 104/62 94 01/11/18 07:13 01/11/18 07:13 01/11/18 07:13 01/11/18 07:13 01/11/18 07:13 General appearance: Present: cooperative, A&O X 3, no acute distress, answers questions appropriately - Head Head exam: Present: atraumatic, normocephalic - Eye Eye exam: Present: normal appearance, sclera anicteric - ENT ENT exam: Present: mucous membranes dry - Neck Neck exam general surgery: Present: normal inspection, trachea midline - Respiratory Respiratory exam: Present: CTAB. Absent: rales, rhonchi - Cardiovascular Cardiovascular exam: Present: RRR, +S1, +S2 - GI/Abdominal GI/Abdominal exam: Present: soft, tenderness (lower abdominal tenderness), no peritoneal signs. Absent: distended, firm, guarding - Rectal Rectal exam: Present: deferred - Extremities Exam Extremities exam: Present: warm - Neurological Exam Neurological exam: Present: no focal deficits - Psychiatric Psychiatric exam: Present: normal affect, normal mood - Skin Skin exam: Present: dry, intact, normal color, warm Results - Labs CBC & Chem 7: 01/11/18 06:33 01/11/18 06:33 Labs: Last Result ESR 9 mm/hr (0-15) 01/11/18 01:06 Calcium 7.6 mg/dL (8.6-10.3) L 01/11/18 06:33 C-Reactive Protein < 5 mg/L (Less than 10) 01/11/18 01:06 Entire Visit Hgb 10.0 g/dL (11.5-15.4) L 01/11/18 06:33 Hct 34.3 % (35.3-44.9) L 01/11/18 06:33 Total Bilirubin 0.3 mg/dL (0.3-1.0) 01/11/18 06:33 AST 8 Units/L (13-39) L 01/11/18 06:33 ALT 8 Units/L (7-52) 01/11/18 06:33 Amylase 277 Units/L (29-103) H 01/10/18 20:17 Lipase 224 Units/L (11-82) H 01/10/18 20:17 Consult Discharge Plan - Plan Instructions: Acute Kidney Injury (DC) Additional Instructions: Please follow up with your primary care physician within five days after your discharge from the hospital. Please follow up with nephrology within one week after your discharge from the hospital. Please follow up with gastroenterology within one to two weeks after your discharge from the hospital Continue to hold your home dose of Lisinopril until your follow up with your primary care physician. Please obtain the prescribed lab work prior to your follow up with your primary care physician. Resume all other home medications as prescribed by your primary care physician. Closely monitor your blood pressure at home. If noted to have systolic blood pressure greater than 150, you may restart your home dose of Lisinopril. If systolic blood pressure is below 150, continue to hold lisinopril until your follow up with your primary care physician. Referrals: Hany Bartlett DO [Non-Partnered Physician] - (Office of Dr. Bartlett will call patient for an appointment) Zaire Mathews DO [Primary Care Provider] - 01/24/18 10:20 am (Please follow up as schedule..) Eren Mclean, ASSISTANT DRAFTER [Advanced Practice Nurse] - (called and left message...) <Moises Jones - Last Filed: 01/29/18 07:50> Date of Encounter: 01/11/18 - Time Spent With Patient Total time spent is greater than 50% in coordination of care (as documented) at patient's floor/unit and/or counseling patient: GI History of Present Illness - Data of Consult Requesting Physician: Beverly Horne MD - Consult Narrative History of present illness: Ms. Dimas is a 72 year old female - Constitutional Vitals: Temp Pulse Resp BP Pulse Ox 98.1 F 72 20 155/80 98 01/16/18 12:39 01/16/18 12:39 01/16/18 12:39 01/16/18 14:59 01/16/18 12:39 Results - Labs CBC & Chem 7: 01/16/18 05:47 01/16/18 05:47 Labs: Last Result ESR 9 mm/hr (0-15) 01/11/18 01:06 Calcium 6.7 mg/dL (8.6-10.3) L 01/16/18 05:47 C-Reactive Protein < 5 mg/L (Less than 10) 01/11/18 01:06 Entire Visit Hgb 8.5 g/dL (11.5-15.4) L 01/16/18 05:47 Hct 28.5 % (35.3-44.9) L 01/16/18 05:47 Total Bilirubin 0.6 mg/dL (0.3-1.0) 01/16/18 05:47 AST 28 Units/L (13-39) 01/16/18 05:47 ALT 26 Units/L (7-52) 01/16/18 05:47 Amylase 277 Units/L (29-103) H 01/10/18 20:17 Lipase 224 Units/L (11-82) H 01/10/18 20:17 - Attending Attestation Patient's previous records as well as present scan have were reviewed. She had an ileal stricture at the last colonoscopy. I examined this patient and my medical decision-making was reviewed with the Resident Physician. I agree with the documented findings, disposition and treatment plan as described except to the extent set forth below.
[2018-01-11 13:00] LABS: Bilirubin,Urine Moderate (Negative); Blood,Urine Negative (Negative); Color,Urine Yellow (Yellow); Glucose,Urine (UA) Normal (Normal); Ketones,Urine Trace mg/dL (Negative); Leukocyte Esterase,Urine Negative (Negative); Nitrite,Urine Negative (Negative); PH,Urine 5.5 pH Units (5.0-8.0); Protein,Urine 30 mg/dL (Neg-Trace); Specific Gravity,Urine 1.025 (1.010-1.025); Urobilinogen,Urine Normal (Normal)
[2018-01-11 13:03] LABS: Hyaline Casts,Urine Few per lpf (None-Few)
[2018-01-11 13:05] LABS: Clarity,Urine Slightly Hazy (Clear)
[2018-01-11 13:19] LABS: Squamous Epithelial Cell,Urine Few per lpf (None-Few)
[2018-01-11 13:21] LABS: Bacteria,Urine Few per hpf (None-Few); RBC,Urine 0-3 per hpf (0-3)
[2018-01-11 13:22] LABS: Amorphous Sediment,Urine Moderate (Few)
--- NOTE | 2018-01-11 15:54 | Internal Med Progress Note ---
Date of Encounter: 01/11/18 Time of Encounter: 14:36 - Assessment and plan (1) Acute renal failure superimposed on stage 3 chronic kidney disease Current Visit: Yes Status: Acute Assessment and plan: Nephrology evaluation appreciated f/u renal US continue lopez cath support noted to have bicarb deficit of 11amp, started bicarb gtt (3amp in D5W at 125cc/ hr) repeat BMP in the evening to monitor bicarb levels avoid nephrotoxic agents will closely monitor renal function Qualifiers: Acute renal failure type: unspecified Qualified Code(s): N17.9 - Acute kidney failure, unspecified; N18.3 - Chronic kidney disease, stage 3 (moderate) ; N18.3 - Chronic kidney disease, stage 3 (moderate) (2) Metabolic acidosis Current Visit: Yes Status: Chronic Assessment and plan: secondary to renal dysfunction and GI losses plan as listed above (3) Nausea & vomiting Current Visit: Yes Status: Acute Assessment and plan: improved continue supportive care anti emetics as needed Qualifiers: Vomiting type: unspecified Vomiting Intractability: non-intractable Qualified Code(s): R11.2 - Nausea with vomiting, unspecified (4) Colitis Current Visit: Yes Status: Acute Assessment and plan: GI on board and evaluation appreciated scheduled for EGD in am pt refusing colonoscopy at this time continue clear liquid diet empiric abx, systemic steroids NPO after midnight for EGD in am pain control IV fluids anti-emetic support (5) Crohn disease Current Visit: Yes Status: Acute Assessment and plan: will obtain social sciences lecturer evaluation as patient is not able to afford medications needed after discharge Qualifiers: Gastrointestinal tract location: small and large intestine Digestive disease complication type: without complication Qualified Code(s): K50.80 - Crohn's disease of both small and large intestine without complications (6) DVT prophylaxis Current Visit: Yes Status: Acute Assessment and plan: heparin sQ (7) Hypertension Current Visit: Yes Status: Acute Assessment and plan: noted to be hypotensive but clinically asymptomatic will closely monitor hold Metoprolol of SBP<100 holding lisinopril given renal impairment Qualifiers: Hypertension type: unspecified Qualified Code(s): I10 - Essential (primary ) hypertension - Time Spent With Patient Total time spent is greater than 50% in coordination of care (as documented) at patient's floor/unit and/or counseling patient: - Subjective Interval history: Patient seen and examined at bedside. Resting in bed and reports of feeling better compared to previous day. Tolerating clear liquid diet and denies any nausea or vomiting at this time. NO diarrhea or Bowel movement since hospitalization. Reports of having chronic abd pain which is improved since hospitalization. Reports of no urine output for the last three days. Bladder scan reported 125cc of urine with removal of 95cc upon lopez cath insertion - Constitutional Vitals: Temp Pulse Resp BP Pulse Ox 97.9 F 65 18 88/56 100 01/11/18 15:35 01/11/18 15:35 01/11/18 15:35 01/11/18 15:35 01/11/18 15:35 General appearance: Present: A&O X 3, no acute distress, obese, answers questions appropriately - Head Head exam: Present: atraumatic, normocephalic - Eye Eye exam: Present: conjuntiva pink, sclera anicteric - Respiratory Respiratory exam: Present: CTAB. Absent: respiratory distress, wheezes - Cardiovascular Cardiovascular exam: Present: RRR, +S1, +S2. Absent: diastolic murmur, gallop, rubs, systolic murmur - GI/Abdominal GI/Abdominal exam: Present: normal bowel sounds, soft, no peritoneal signs. Absent: distended, tenderness - Extremities Exam Extremities exam: Present: warm, radial pulses palpable and symmetrical. Absent : calf tenderness, pedal edema - Neurological Exam Neurological exam: Present: oriented X3 Internal Medicine: Result - Labs CBC & Chem 7: 01/11/18 06:33 01/11/18 06:33 Labs: Short CBC 01/11/18 Range/Units 06:33 WBC 8.1 (4.3-11.1) K/mcL Hgb 10.0 L (11.5-15.4) g/dL Hct 34.3 L (35.3-44.9) % Plt Count 266 (140-400) K/mcL Neutrophils # 7.0 (1.6-8.9) K/mcL BMP 01/11/18 06:33 Sodium 136 Potassium 3.6 Chloride 120 H Carbon Dioxide 7 L* BUN 63 H Creatinine 7.07 H Glucose 144 H Calcium 7.6 L Liver Function 01/11/18 Range/Units 06:33 Total Bilirubin 0.3 (0.3-1.0) mg/dL AST 8 L (13-39) Units/L ALT 8 (7-52) Units/L Alkaline Phosphatase 178 H (34-104) Units/L Albumin 3.5 (3.5-5.7) g/dL Urine 01/11/18 Range/Units 12:30 Urine Color Yellow (Yellow) Urine Clarity Slightly Hazy (Clear) Urine pH 5.5 (5.0-8.0) pH Units Ur Specific [place] 1.025 (1.010-1.025) Urine Protein 30 H (Neg-Trace) mg/dL Urine Glucose (UA) Normal (Normal) mg/dL - Impressions Impressions Retroperitoneum Ultrasound 01/11/18 13:30 IMPRESSION: Unremarkable ultrasound of the kidneys and urinary bladder. D/ / Wilman Jung MD / Wilman Jung MD Interpreting Provider: Wilman Jung MD Consult Discharge Plan - Plan Referrals: Zaire Mathews DO [Primary Care Provider] - (call upon discharge...)
[2018-01-11 17:24] LABS: Calcium 7.3 mg/dL (8.6-10.3); Potassium 3.1 mEq/L (3.5-5.1)
[2018-01-11 23:43] LABS: Adenovirus F 40/41 PCR Not detected (Not detect); Astrovirus PCR Not detected (Not detect); C.difficile Toxin A/B by PCR Not detected (Not detect); Campylobacter by PCR Not detected (Not detect); Cryptosporidium by PCR Not detected (Not detect); Cyclospora cayetanensis PCR Not detected (Not detect); E. coli O157 by PCR Not detected (Not detect); Entamoeba histolytica PCR Not detected (Not detect); Enteroaggregative E.coli(EAEC) Not detected (Not detect); Enteropathogenic E.coli(EPEC) Not detected (Not detect); Enterotoxigenic E.coli (ETEC) Not detected (Not detect); Giardia lamblia PCR Not detected (Not detect); Norovirus GI/GII PCR Not detected (Not detect); Plesiomonas shigelloides PCR Not detected (Not detect); Rotavirus A PCR Not detected (Not detect); Salmonella PCR Not detected (Not detect); Sapovirus PCR Not detected (Not detect); Shig/EnteroinvasiveE coli EIEC Not detected (Not detect); Shigalike tox-prod E coli STEC Not detected (Not detect); Vibrio PCR Not detected (Not detect); Vibrio cholerae PCR Not detected (Not detect); Yersinia enterocolitica PCR Not detected (Not detect)
[2018-01-12] MEDS ORDERED: OXYCODONE Oral CONC 10 MG/0.5 ML ORAL.SYG SL PRN (01:24)
[2018-01-12] MEDS: OXYCODONE Oral CONC 10 MG/0.5 ML ORAL.SYG SL PRN ×2 (02:01→02:04)
[2018-01-12 05:52] LABS: Hemoglobin 8.5 g/dL (11.5-15.4); Immature Granulocytes % 0.6 % (0-4); Lymphocytes % 7.5 %; Mean Corpuscular HGB Conc 31.5 g/dL (31.6-35.5); Mean Corpuscular Hemoglobin 23.9 pg (28.0-33.3); Mean Corpuscular Volume 75.8 fL (83.0-100.0); Mean Platelet Volume 11.2 fL (9.4-12.4); Platelet Count 245 K/mcL (140-400); Red Blood Count 3.56 M/mcL (3.82-4.97); Red Cell Distribution Width 19.9 % (11.5-14.5); Segmented Neutrophils % 87.1 %
[2018-01-12 05:53] LABS: Basophils % 0.1 %; Lymphocytes # 0.7 K/mcL (0.6-4.6); Monocytes # 0.5 K/mcL (0.0-1.3); Monocytes % 4.7 %; Neutrophils # 8.4 K/mcL (1.6-8.9); Nucleated Red Blood Cells 0.2 /100 WBC (0)
[2018-01-12] MEDS: *HR* Heparin 5,000 UNIT/ML VIAL SQ SCH ×3 (05:57→22:56)
[2018-01-12 06:08] LABS: Calcium 6.9 mg/dL (8.6-10.3); Magnesium 1.7 mg/dL (1.6-2.6); Phosphorous 5.2 mg/dL (2.7-4.5); Potassium 2.4 mEq/L (3.5-5.1)
[2018-01-12] MEDS ORDERED: Potassium Chloride 40 MEQ, Lidocaine 1% 2 ML in D5% in Water 500 ML IVPB ONE ×2 (06:24→08:26)
[2018-01-12] MEDS: Sodium Bicarbonate 150 MEQ in D5% in Water 1,000 ML IVC SCH ×3 (08:54→23:00)
[2018-01-12] MEDS: Famotidine 20 MG TABLET PO SCH (09:00)
[2018-01-12] MEDS: MethylPREDNISolone 40 MG/ML VIAL IVP SCH ×3 (09:00→22:57)
--- NOTE | 2018-01-12 11:18 | Nephrology Progress Note ---
Date of Encounter: 01/12/18 Time of Encounter: 10:50 - Assessment and Plan (1) FLORENTIN (acute kidney injury) Current Visit: No Status: Acute Oliguric FLORENTIN in setting of GI losses superimposed on CKD 3, baseline creat 1.2- 1.5. Renal US unremarkable. Jansen catheter, documented urine output 170 cc. 100cc in bag at present. Renal fct slow improvement, creat 7.05. K+ 2.4, potassium replacement ordered. Continue current IV fluids.Avoid nephrotoxins, Accurate I&O's. No immediate need for HD. Will continue to monitor. Subjective Interval history: Laying quietly, states feels weak.Denies shortnesss of breath Objective - Vital Signs Vital signs: Vital Signs Temp Pulse Resp BP Pulse Ox 01/12/18 07:30 98.0 F 72 15 107/60 97 01/12/18 04:15 97.9 F 65 16 109/45 96 01/12/18 00:59 97.7 F 104 16 126/63 96 01/11/18 19:31 98 F 72 16 96/56 100 01/11/18 16:08 92/64 01/11/18 15:35 97.9 F 65 18 88/56 100 Intake and Output 01/11/18 01/12/18 01/12/18 23:59 07:59 15:59 Intake Total 1000 / 1000 0 / 0 1210 / 1210 Output Total 750 / 750 75 / 75 Balance 1000 / 1000 -750 / -750 1135 / 1135 Intake: IV Fluids 1000 / 1000 1150 / 1150 Sodium Bicarbonate 150 MEQ In 1000 / 1000 1150 / 1150 Dextrose 5% 1,000 ML @ 125 mls/ hr IVC .Q9H12M [facility] Rx#: [id number] Oral 0 / 0 60 / 60 Output: Catheter 750 / 750 75 / 75 Other: Meal NPO at breakfast Percent of Meal Consumed 0% Stool Consistency liquid # Bowel Movements 1 0 Weight 83.9 kg Patient Weight 01/12/18 23:59 Weight 83.9 kg - General Appearance General appearance: Present: well-developed, well-nourished, appears started age EENT: Present: mucous membranes moist Neck: Present: no JVD Respiratory: Present: clear Cardiology: Present: no edema, regular rate, regular rhythm Gastrointestinal: Present: normoactive bowel sounds, no tenderness Integumentary: Present: warm and dry Neurologic: Present: alert and oriented x3 - Lab 01/12/18 04:46 01/12/18 04:46 Most recent lab results Calcium 6.9 mg/dL (8.6-10.3) L 01/12/18 04:46 Phosphorus 5.2 mg/dL (2.7-4.5) H 01/12/18 04:46 Magnesium 1.7 mg/dL (1.6-2.6) 01/12/18 04:46 Consult Discharge Plan - Plan Referrals: Zaire Mathews DO [Primary Care Provider] - (call upon discharge...)
[2018-01-12] MEDS: Piperacillin/Tazobactam 3.375 GM in 0.9 % Sodium Chloride Mini Bag 100 ML IVPB SCH ×2 (11:29→22:56)
--- NOTE | 2018-01-12 13:40 | Internal Med Progress Note ---
Date of Encounter: 01/12/18 Time of Encounter: 13:37 - Assessment and plan (1) Acute renal failure superimposed on stage 3 chronic kidney disease Current Visit: Yes Status: Acute Assessment and plan: Nephrology evaluation appreciated continue lopez cath support continue bicarb gtt (3amp in D5W at 125cc/hr) repeat BMP in the evening to monitor bicarb levels avoid nephrotoxic agents will closely monitor renal function Qualifiers: Acute renal failure type: unspecified Qualified Code(s): N17.9 - Acute kidney failure, unspecified; N18.3 - Chronic kidney disease, stage 3 (moderate) ; N18.3 - Chronic kidney disease, stage 3 (moderate) (2) Metabolic acidosis Current Visit: Yes Status: Chronic Assessment and plan: secondary to renal dysfunction and GI losses plan as listed above (3) Nausea & vomiting Current Visit: Yes Status: Acute Assessment and plan: improved continue supportive care anti emetics as needed Qualifiers: Vomiting type: unspecified Vomiting Intractability: non-intractable Qualified Code(s): R11.2 - Nausea with vomiting, unspecified (4) Colitis Current Visit: Yes Status: Acute Assessment and plan: GI on board and evaluation appreciated pt refused EGD today (01/12/18) pt refusing colonoscopy at this time continue clear liquid diet at this time empiric abx, systemic steroids pain control IV fluids anti-emetic support (5) Crohn disease Current Visit: Yes Status: Acute Assessment and plan: will obtain social services aide evaluation as patient is not able to afford medications needed after discharge Qualifiers: Gastrointestinal tract location: small and large intestine Digestive disease complication type: without complication Qualified Code(s): K50.80 - Crohn's disease of both small and large intestine without complications (6) DVT prophylaxis Current Visit: Yes Status: Acute Assessment and plan: heparin sQ (7) Hypertension Current Visit: Yes Status: Acute Assessment and plan: noted to be hypotensive but clinically asymptomatic will closely monitor hold Metoprolol of SBP<100 holding lisinopril given renal impairment Qualifiers: Hypertension type: unspecified Qualified Code(s): I10 - Essential (primary ) hypertension (8) Hypokalemia Current Visit: Yes Status: Acute Assessment and plan: K supplemented continue to monitor electrolytes and replace as needed - Time Spent With Patient Total time spent is greater than 50% in coordination of care (as documented) at patient's floor/unit and/or counseling patient: - Subjective Interval history: Patient seen and examined at bedside. Resting in bed and reports of feeling better compared to previous day. States she felt much better this morning and did not want the EGD. Demanded a regular diet, therefore she was advanced to full liquid diet. She was not able to tolerate the diet well and reported of nausea after. Will continue with clear liquid diet at this time. Pt continues to refuse EGD at this time. Urine output improved renal function minimally improved - Constitutional Vitals: Temp Pulse Resp BP Pulse Ox 97.7 F 76 17 99/54 97 01/12/18 11:00 01/12/18 11:00 01/12/18 11:00 01/12/18 11:01/12/18 11:00 General appearance: Present: A&O X 3, no acute distress, obese, answers questions appropriately - Head Head exam: Present: atraumatic, normocephalic - Eye Eye exam: Present: conjuntiva pink, sclera anicteric - Respiratory Respiratory exam: Present: CTAB. Absent: respiratory distress, wheezes - Cardiovascular Cardiovascular exam: Present: RRR, +S1, +S2. Absent: diastolic murmur, gallop, rubs, systolic murmur - GI/Abdominal GI/Abdominal exam: Present: normal bowel sounds, soft, no peritoneal signs. Absent: distended, tenderness - Extremities Exam Extremities exam: Present: warm, radial pulses palpable and symmetrical. Absent : calf tenderness, pedal edema, tenderness - Neurological Exam Neurological exam: Present: oriented X3 Internal Medicine: Result - Labs CBC & Chem 7: 01/12/18 04:46 01/12/18 11:09 Labs: Short CBC 01/12/18 Range/Units 04:46 WBC 9.6 (4.3-11.1) K/mcL Hgb 8.5 L D (11.5-15.4) g/dL Hct 27.0 L (35.3-44.9) % Plt Count 245 (140-400) K/mcL Neutrophils # 8.4 (1.6-8.9) K/mcL BMP 01/11/18 01/12/18 01/12/18 16:46 04:46 11:09 Sodium 135 L 140 Potassium 3.1 L 2.4 L* 2.5 L* Chloride 113 H 107 Carbon Dioxide 10 L* 15 L BUN 66 H 65 H Creatinine 7.68 H 7.05 H Glucose 138 H 155 H Calcium 7.3 L 6.9 L - Impressions Impressions Retroperitoneum Ultrasound 01/11/18 13:30 IMPRESSION: Unremarkable ultrasound of the kidneys and urinary bladder. D/ / Wilman Jung MD / Wilman Jung MD Interpreting Provider: Wilman Jung MD Consult Discharge Plan - Plan Referrals: Zaire Mathews DO [Primary Care Provider] - (call upon discharge...)
[2018-01-12] MEDS: Ondansetron 4 MG/2 ML VIAL IVP PRN ×2 (16:13→23:14)
[2018-01-12 19:45] LABS: Calcium 6.8 mg/dL (8.6-10.3); Potassium 2.7 mEq/L (3.5-5.1)
[2018-01-12] MEDS ORDERED: *HR* FentaNYL (PF) 100 MCG/2 ML VIAL IVP PRN (22:52)
[2018-01-12] MEDS ORDERED: *HR* FentaNYL (PF) 100 MCG/2 ML VIAL ONE (23:02)
[2018-01-13] MEDS: *HR* Heparin 5,000 UNIT/ML VIAL SQ SCH ×3 (05:03→21:34)
[2018-01-13] MEDS: Ondansetron 4 MG/2 ML VIAL IVP PRN ×2 (05:03→15:10)
[2018-01-13] MEDS ORDERED: *HR* Promethazine 25 MG/ML VIAL ONE (05:30)
[2018-01-13] MEDS: *HR* Promethazine 25 MG/ML VIAL IVP PRN ×3 (05:41→16:29)
[2018-01-13] MEDS ORDERED: Potassium Chloride 40 MEQ, Lidocaine 1% 2 ML in D5% in Water 500 ML IVPB ONE ×3 (05:45→10:00)
[2018-01-13 05:56] LABS: Basophils % 0.1 %; Hematocrit 27.5 % (35.3-44.9); Hemoglobin 8.9 g/dL (11.5-15.4); Immature Granulocytes % 0.7 % (0-4); Lymphocytes # 0.8 K/mcL (0.6-4.6); Lymphocytes % 7.2 %; Mean Corpuscular HGB Conc 32.4 g/dL (31.6-35.5); Mean Corpuscular Hemoglobin 24.1 pg (28.0-33.3); Mean Corpuscular Volume 74.5 fL (83.0-100.0); Monocytes # 0.6 K/mcL (0.0-1.3); Monocytes % 5.6 %; Neutrophils # 9.2 K/mcL (1.6-8.9); Platelet Count 252 K/mcL (140-400); Red Blood Count 3.69 M/mcL (3.82-4.97); Red Cell Distribution Width 20.1 % (11.5-14.5); Segmented Neutrophils % 86.4 %
[2018-01-13 06:14] LABS: Calcium 6.8 mg/dL (8.6-10.3); Magnesium 2.1 mg/dL (1.6-2.6); Phosphorous 3.5 mg/dL (2.7-4.5); Potassium 2.4 mEq/L (3.5-5.1)
[2018-01-13] MEDS: 0.9 % Sodium Chloride 1,000 ML IVC SCH ×2 (09:44→23:27)
[2018-01-13] MEDS: MethylPREDNISolone 40 MG/ML VIAL IVP SCH ×3 (09:44→23:27)
[2018-01-13] MEDS: Piperacillin/Tazobactam 3.375 GM in 0.9 % Sodium Chloride Mini Bag 100 ML IVPB SCH ×2 (09:45→21:35)
[2018-01-13] MEDS: Famotidine 20 MG TABLET PO SCH (09:45)
--- NOTE | 2018-01-13 09:55 | Nephrology Progress Note ---
Date of Encounter: 01/13/18 Time of Encounter: 08:55 - Assessment and Plan (1) FLORENTIN (acute kidney injury) Current Visit: No Status: Acute Oliguric FLORENTIN in setting of GI losses superimposed on CKD 3, baseline creat 1.2- 1.5. Renal US unremarkable. Jansen catheter, documented urine output 2024 cc. Renal fct improving, creat 4.48. K+ 2.4, potassium replacement ordered. IV changed 0.9 NS at 75 cc/hr. Avoid nephrotoxins, Accurate I&O's. No immediate need for HD. Will continue to monitor. Subjective Interval history: Laying quietly, states feels weak. Admits nausea and vomiting since after lunch yesterday. States cannot eat breakfast. Denies further diarrhea. Objective - Vital Signs Vital signs: Vital Signs Temp Pulse Resp BP Pulse Ox 01/13/18 07:30 98.2 F 70 16 143/73 97 01/13/18 04:20 98.2 F 70 16 120/57 97 01/12/18 23:47 98.4 F 74 16 149/90 98 01/12/18 19:40 97.6 F 61 16 136/63 98 01/12/18 16:23 97.6 F 63 15 106/69 97 01/12/18 11:00 97.7 F 76 17 99/54 97 Intake and Output 01/12/18 01/13/18 01/13/18 23:59 07:59 15:59 Intake Total 1510 / 1510 100 / 100 Output Total 1100 / 1100 390 / 390 Balance 410 / 410 -290 / -290 Intake: IV Fluids 1150 / 1150 100 / 100 Sodium Bicarbonate 150 MEQ In 1150 / 1150 Dextrose 5% 1,000 ML @ 125 mls/ hr IVC .Q9H12M [facility] Rx#: [id number] Zosyn 3.375 GM In 0.9 % Sodium 100 / 100 Chloride (Mini-Bag +) 100 ML @ 25 mls/hr IVPB Q12H [facility] Rx#: [id number] Oral 360 / 360 0 / 0 Output: Urine 300 / 300 Emesis 40 / 40 Catheter 800 / 800 350 / 350 Other: Meal Dinner Stool Size Small Stool Consistency loose liquid Stool Color Brown # Bowel Movements 1 Weight 81.374 kg Patient Weight 01/13/18 23:59 Weight 81.374 kg - General Appearance General appearance: Present: well-developed, well-nourished, appears started age EENT: Present: mucous membranes moist Neck: Present: no JVD Respiratory: Present: clear Cardiology: Present: no edema Gastrointestinal: Present: normoactive bowel sounds, no tenderness Integumentary: Present: warm and dry Neurologic: Present: alert and oriented x3 - Lab 01/13/18 05:40 01/13/18 05:40 Most recent lab results Calcium 6.8 mg/dL (8.6-10.3) L 01/13/18 05:40 Phosphorus 3.5 mg/dL (2.7-4.5) 01/13/18 05:40 Magnesium 2.1 mg/dL (1.6-2.6) 01/13/18 05:40 Consult Discharge Plan - Plan Referrals: Zaire Mathews DO [Primary Care Provider] - (call upon discharge...)
--- NOTE | 2018-01-13 12:52 | Internal Med Progress Note ---
Date of Encounter: 01/13/18 Time of Encounter: 12:50 - Assessment and plan (1) Acute renal failure superimposed on stage 3 chronic kidney disease Current Visit: Yes Status: Acute Assessment and plan: Nephrology evaluation appreciated continue lopez cath support Metabolic acidosis resolved, will d/c bicarb gtt start 0.9% NS @ 75cc/hr repeat BMP in the evening to monitor bicarb levels avoid nephrotoxic agents will closely monitor renal function (2) Metabolic acidosis Current Visit: Yes Status: Resolved Assessment and plan: secondary to renal dysfunction and GI losses plan as listed above (3) Nausea & vomiting Current Visit: Yes Status: Acute Assessment and plan: improved continue supportive care anti emetics as needed Qualifiers: Vomiting type: unspecified Vomiting Intractability: non-intractable Qualified Code(s): R11.2 - Nausea with vomiting, unspecified (4) Colitis Current Visit: Yes Status: Acute Assessment and plan: GI on board and evaluation appreciated pt refused EGD today (01/12/18) pt refusing colonoscopy at this time continue clear liquid diet at this time empiric abx, systemic steroids pain control IV fluids anti-emetic support (5) Crohn disease Current Visit: Yes Status: Acute Assessment and plan: will obtain manager social responsibility evaluation as patient is not able to afford medications needed after discharge Qualifiers: Gastrointestinal tract location: small and large intestine Digestive disease complication type: without complication Qualified Code(s): K50.80 - Crohn's disease of both small and large intestine without complications (6) DVT prophylaxis Current Visit: Yes Status: Acute Assessment and plan: heparin sQ (7) Hypertension Current Visit: Yes Status: Acute Assessment and plan: BP within acceptable range will closely monitor hold Metoprolol of SBP<100 holding lisinopril given renal impairment Qualifiers: Hypertension type: unspecified Qualified Code(s): I10 - Essential (primary ) hypertension (8) Hypokalemia Current Visit: Yes Status: Acute Assessment and plan: K supplemented continue to monitor electrolytes and replace as needed (9) Obesity (BMI 30-39.9) Current Visit: Yes Status: Chronic - Time Spent With Patient Total time spent is greater than 50% in coordination of care (as documented) at patient's floor/unit and/or counseling patient: - Subjective Interval history: Patient seen and examined at bedside. Resting in bed and denies any nausea at this time but states even with clear liquid diet she feels nauseous and is throwing up. Denies feeling hungry. Denies abd discomfort at this time. Renal function improving with good urine output. noted to be hypokalemic, will closely monitor Potassium levels, will repeat BMP later today to closely monitor K levels. - Constitutional Vitals: Temp Pulse Resp BP Pulse Ox 97.7 F 68 16 129/81 95 01/13/18 11:46 01/13/18 11:46 01/13/18 11:46 01/13/18 11:46 01/13/18 11:46 General appearance: Present: A&O X 3, no acute distress, obese, answers questions appropriately - Head Head exam: Present: atraumatic - Eye Eye exam: Present: conjuntiva pink, sclera anicteric - Respiratory Respiratory exam: Present: CTAB. Absent: respiratory distress, wheezes - Cardiovascular Cardiovascular exam: Present: RRR, +S1, +S2. Absent: diastolic murmur, gallop, rubs, systolic murmur - GI/Abdominal GI/Abdominal exam: Present: normal bowel sounds, soft, no peritoneal signs. Absent: distended, tenderness - Extremities Exam Extremities exam: Present: warm, radial pulses palpable and symmetrical. Absent : calf tenderness - Neurological Exam Neurological exam: Present: oriented X3 Internal Medicine: Result - Labs CBC & Chem 7: 01/13/18 05:40 01/13/18 05:40 Labs: Short CBC 01/13/18 Range/Units 05:40 WBC 10.7 (4.3-11.1) K/mcL Hgb 8.9 L (11.5-15.4) g/dL Hct 27.5 L (35.3-44.9) % Plt Count 252 (140-400) K/mcL Neutrophils # 9.2 H (1.6-8.9) K/mcL BMP 01/12/18 01/12/18 01/13/18 18:53 23:23 05:40 Sodium 139 141 Potassium 2.7 L 2.6 L 2.4 L* Chloride 104 104 Carbon Dioxide 18 L 24 BUN 57 H 51 H Creatinine 5.40 H 4.48 H Glucose 219 H 170 H Calcium 6.8 L 6.8 L Consult Discharge Plan - Plan Referrals: Zaire Mathews DO [Primary Care Provider] - (call upon discharge...)
[2018-01-13 16:44] LABS: Calcium 6.4 mg/dL (8.6-10.3); Potassium 3.1 mEq/L (3.5-5.1)
[2018-01-14] MEDS: *HR* Promethazine 25 MG/ML VIAL IVP PRN (01:53)
[2018-01-14] MEDS: *HR* Heparin 5,000 UNIT/ML VIAL SQ SCH ×3 (05:45→21:50)
[2018-01-14 06:49] LABS: Hematocrit 25.9 % (35.3-44.9); Hemoglobin 8.2 g/dL (11.5-15.4); Immature Granulocytes % 0.6 % (0-4); Lymphocytes % 11.8 %; Mean Corpuscular HGB Conc 31.7 g/dL (31.6-35.5); Mean Corpuscular Hemoglobin 24.3 pg (28.0-33.3); Mean Corpuscular Volume 76.9 fL (83.0-100.0); Monocytes # 0.6 K/mcL (0.0-1.3); Monocytes % 7.8 %; Neutrophils # 6.4 K/mcL (1.6-8.9); Platelet Count 226 K/mcL (140-400); Red Blood Count 3.37 M/mcL (3.82-4.97); Red Cell Distribution Width 20.9 % (11.5-14.5); Segmented Neutrophils % 79.8 %
[2018-01-14 07:02] LABS: Calcium 6.4 mg/dL (8.6-10.3); Magnesium 1.8 mg/dL (1.6-2.6); Phosphorous 3.1 mg/dL (2.7-4.5); Potassium 3.2 mEq/L (3.5-5.1)
[2018-01-14] MEDS: Famotidine 20 MG TABLET PO SCH (08:25)
[2018-01-14] MEDS: MethylPREDNISolone 40 MG/ML VIAL IVP SCH ×2 (08:25→15:08)
--- NOTE | 2018-01-14 08:28 | Nephrology Progress Note ---
Date of Encounter: 01/14/18 Time of Encounter: 08:15 - Assessment and Plan (1) FLORENTIN (acute kidney injury) Current Visit: No Status: Acute Oliguric FLORENTIN in setting of GI losses superimposed on CKD 3, baseline creat 1.2- 1.5. Renal US unremarkable. Jansen catheter, documented urine output 2000 cc. Renal fct improving, creat 2.82. K+ 3.2. Avoid nephrotoxins, Accurate I&O's. No immediate need for HD. Will continue to monitor. Subjective Interval history: Laying quietly. Denies nausea. Ate breakfast. States stools loose, though less. Objective - Vital Signs Vital signs: Vital Signs Temp Pulse Resp BP Pulse Ox 01/14/18 07:34 97.6 F 65 17 133/57 97 01/14/18 03:13 98.6 F 85 16 139/66 92 01/13/18 23:08 98.4 F 51 16 127/55 97 01/13/18 19:13 98.6 F 71 17 110/70 97 01/13/18 16:02 98.1 F 55 16 122/64 96 01/13/18 11:46 97.7 F 68 16 129/81 95 Intake and Output 01/13/18 01/14/18 01/14/18 23:59 07:59 15:59 Intake Total 1120 / 1120 Output Total 550 / 550 225 / 225 Balance 570 / 570 -225 / -225 Intake: IV Fluids 1000 / 1000 0.9 % Sodium Chloride 1,000 ML 1000 / 1000 @ 75 mls/hr IVC .[id number] [facility] Rx #:[id number] Oral 120 / 120 Output: Catheter 550 / 550 225 / 225 Other: Meal Dinner Percent of Meal Consumed 80% Stool Size Moderate Stool Consistency liquid Stool Color Brown # Bowel Movements 1 Weight 86.9 kg Patient Weight 01/14/18 23:59 Weight 86.9 kg - General Appearance General appearance: Present: well-developed, well-nourished, appears started age EENT: Present: mucous membranes moist Neck: Present: no JVD Respiratory: Present: clear Cardiology: Present: no edema, regular rate, regular rhythm Gastrointestinal: Present: normoactive bowel sounds, no tenderness Integumentary: Present: warm and dry Neurologic: Present: alert and oriented x3 - Lab 01/14/18 06:30 01/14/18 06:30 Most recent lab results Calcium 6.4 mg/dL (8.6-10.3) L 01/14/18 06:30 Phosphorus 3.1 mg/dL (2.7-4.5) 01/14/18 06:30 Magnesium 1.8 mg/dL (1.6-2.6) 01/14/18 06:30 Consult Discharge Plan - Plan Referrals: Zaire Mathews DO [Primary Care Provider] - (call upon discharge...)
[2018-01-14] MEDS ORDERED: Potassium Chloride 40 MEQ, Lidocaine 1% 2 ML in D5% in Water 500 ML IVPB ONE (08:44)
[2018-01-14] MEDS: Piperacillin/Tazobactam 3.375 GM in 0.9 % Sodium Chloride Mini Bag 100 ML IVPB SCH ×2 (10:39→21:51)
[2018-01-14] MEDS: 0.9 % Sodium Chloride 1,000 ML IVC SCH (10:40)
--- NOTE | 2018-01-14 11:59 | Internal Med Progress Note ---
Date of Encounter: 01/14/18 Time of Encounter: 11:59 - Assessment and plan (1) Acute renal failure superimposed on stage 3 chronic kidney disease Current Visit: Yes Status: Acute Assessment and plan: Nephrology evaluation appreciated continue lopez cath support Metabolic acidosis resolved, will d/c bicarb gtt continue 0.9% NS @ 75cc/hr avoid nephrotoxic agents will closely monitor renal function Qualifiers: Acute renal failure type: unspecified Qualified Code(s): N17.9 - Acute kidney failure, unspecified; N18.3 - Chronic kidney disease, stage 3 (moderate) ; N18.3 - Chronic kidney disease, stage 3 (moderate) (2) Metabolic acidosis Current Visit: Yes Status: Resolved Assessment and plan: secondary to renal dysfunction and GI losses plan as listed above (3) Nausea & vomiting Current Visit: Yes Status: Acute Assessment and plan: improved continue supportive care anti emetics as needed Qualifiers: Vomiting type: unspecified Vomiting Intractability: non-intractable Qualified Code(s): R11.2 - Nausea with vomiting, unspecified (4) Colitis Current Visit: Yes Status: Acute Assessment and plan: GI on board and evaluation appreciated pt refused EGD today (01/12/18) pt refusing colonoscopy at this time advance diet as tolerated empiric abx, systemic steroids pain control IV fluids anti-emetic support (5) Crohn disease Current Visit: Yes Status: Acute Assessment and plan: social staff worker evaluation as patient is not able to afford medications needed after discharge Qualifiers: Gastrointestinal tract location: small and large intestine Digestive disease complication type: without complication Qualified Code(s): K50.80 - Crohn's disease of both small and large intestine without complications (6) DVT prophylaxis Current Visit: Yes Status: Acute Assessment and plan: heparin sQ (7) Hypertension Current Visit: Yes Status: Acute Assessment and plan: BP within acceptable range will closely monitor hold Metoprolol of SBP<100 holding lisinopril given renal impairment Qualifiers: Hypertension type: unspecified Qualified Code(s): I10 - Essential (primary ) hypertension (8) Hypokalemia Current Visit: Yes Status: Acute Assessment and plan: K supplemented continue to monitor electrolytes and replace as needed (9) Obesity (BMI 30-39.9) Current Visit: Yes Status: Chronic (10) Hypocalcemia Current Visit: Yes Status: Acute Assessment and plan: Corrected calcium to albumin: 6.8 Ca supplemented continue to monitor electrolytes and replace as needed - Time Spent With Patient Total time spent is greater than 50% in coordination of care (as documented) at patient's floor/unit and/or counseling patient: - Subjective Interval history: Patient seen and examined at bedside. Resting in bed and reports of feeling better compared to previous day. Tolerated clear liquid diet well and wants to advance diet. Denies any abd pain, n/v at this time. Renal function improving with good urine output. noted to be hypokalemic, will closely monitor Potassium levels - Constitutional Vitals: Temp Pulse Resp BP Pulse Ox 97.7 F 81 17 137/77 93 01/14/18 10:53 01/14/18 10:53 01/14/18 10:53 01/14/18 10:53 01/14/18 10:53 General appearance: Present: A&O X 3, no acute distress, obese, answers questions appropriately - Head Head exam: Present: atraumatic, normocephalic - Eye Eye exam: Present: conjuntiva pink, sclera anicteric - Respiratory Respiratory exam: Present: CTAB. Absent: respiratory distress, wheezes - Cardiovascular Cardiovascular exam: Present: RRR, +S1, +S2. Absent: diastolic murmur, gallop, rubs, systolic murmur - GI/Abdominal GI/Abdominal exam: Present: normal bowel sounds, soft, no peritoneal signs. Absent: distended, tenderness - Extremities Exam Extremities exam: Present: warm, radial pulses palpable and symmetrical. Absent : calf tenderness, tenderness - Neurological Exam Neurological exam: Present: oriented X3 - Psychiatric Psychiatric exam: Present: normal affect, normal mood Internal Medicine: Result - Labs CBC & Chem 7: 01/14/18 06:30 01/14/18 06:30 Labs: Short CBC 01/14/18 Range/Units 06:30 WBC 8.0 (4.3-11.1) K/mcL Hgb 8.2 L (11.5-15.4) g/dL Hct 25.9 L (35.3-44.9) % Plt Count 226 (140-400) K/mcL Neutrophils # 6.4 (1.6-8.9) K/mcL BMP 01/13/18 01/14/18 16:08 06:30 Sodium 144 145 Potassium 3.1 L D 3.2 L Chloride 110 H 114 H Carbon Dioxide 25 24 BUN 44 H 40 H Creatinine 3.52 H 2.82 H Glucose 130 H 118 H Calcium 6.4 L 6.4 L Consult Discharge Plan - Plan Referrals: Zaire Mathews DO [Primary Care Provider] - (call upon discharge...)
[2018-01-15] MEDS: MethylPREDNISolone 40 MG/ML VIAL IVP SCH ×2 (00:16→08:22)
[2018-01-15] MEDS: 0.9 % Sodium Chloride 1,000 ML IVC SCH ×2 (00:16→14:55)
[2018-01-15] MEDS: hydrALAZINE 10 MG TABLET PO PRN ×2 (00:52→11:13)
[2018-01-15 04:25] LABS: Hematocrit 27.7 % (35.3-44.9); Hemoglobin 8.4 g/dL (11.5-15.4); Immature Granulocytes % 0.7 % (0-4); Lymphocytes # 0.9 K/mcL (0.6-4.6); Mean Corpuscular HGB Conc 30.3 g/dL (31.6-35.5); Mean Corpuscular Hemoglobin 24.2 pg (28.0-33.3); Mean Corpuscular Volume 79.8 fL (83.0-100.0); Mean Platelet Volume 11.6 fL (9.4-12.4); Monocytes # 0.6 K/mcL (0.0-1.3); Monocytes % 6.6 %; Platelet Count 244 K/mcL (140-400); Red Blood Count 3.47 M/mcL (3.82-4.97); Red Cell Distribution Width 20.9 % (11.5-14.5); Segmented Neutrophils % 82.7 %
[2018-01-15 04:39] LABS: Calcium 6.7 mg/dL (8.6-10.3); Magnesium 1.5 mg/dL (1.6-2.6); Phosphorous 2.3 mg/dL (2.7-4.5); Potassium 3.2 mEq/L (3.5-5.1)
[2018-01-15] MEDS: *HR* Heparin 5,000 UNIT/ML VIAL SQ SCH ×3 (05:33→21:32)
[2018-01-15] MEDS: Famotidine 20 MG TABLET PO SCH (08:23)
--- NOTE | 2018-01-15 08:33 | Nephrology Progress Note ---
Date of Encounter: 01/15/18 Time of Encounter: 08:31 - Assessment and Plan (1) Acute renal failure Current Visit: Yes Status: Acute The patient's renal function continues to improve with control of her diarrhea and IV hydration. We should be able to stop the maintenance IV tomorrow. She will require additional potassium supplementation today. Qualifiers: Acute renal failure type: unspecified Qualified Code(s): N17.9 - Acute kidney failure, unspecified (2) Crohn disease Current Visit: Yes Status: Acute Qualifiers: Gastrointestinal tract location: unspecified location Digestive disease complication type: without complication Qualified Code(s): K50.90 - Crohn's disease, unspecified, without complications (3) Hypokalemia Current Visit: No Status: Acute (4) Metabolic acidosis Current Visit: Yes Status: Resolved Subjective Interval history: The patient reports she continues to improve. She is no longer experiencing any diarrhea. Renal function continues to improve daily. Metabolic acidosis is improved as well. She does remain hypokalemic. Objective - Vital Signs Vital signs: Vital Signs Temp Pulse Resp BP Pulse Ox 01/15/18 07:44 98.2 F 47 16 168/72 96 01/15/18 04:26 98.6 F 73 16 164/51 95 01/14/18 23:47 98.4 F 68 16 170/73 96 01/14/18 18:55 98.1 F 55 14 166/82 98 01/14/18 16:20 97.8 F 57 16 142/71 96 01/14/18 10:53 97.7 F 81 17 137/77 93 Intake and Output 01/14/18 01/15/18 01/15/18 23:59 07:59 15:59 Intake Total 800 / 800 1000 / 1000 Output Total 650 / 650 0 / 0 Balance 150 / 150 1000 / 1000 Intake: IV Fluids 1000 / 1000 0.9 % Sodium Chloride 1,000 ML 1000 / 1000 @ 75 mls/hr IVC .[id number] [facility] Rx #:[id number] Oral 800 / 800 Output: Catheter 650 / 650 0 / 0 Other: Stool Size Moderate Stool Consistency liquid Stool Color Brown # Bowel Movements 1 Weight 87.3 kg Patient Weight 01/15/18 23:59 Weight 87.3 kg - General Appearance Exam: Patient is alert and oriented. She is in no acute distress. Lungs clear to auscultation. Heart regular rate and rhythm. Abdomen is benign. There is no peripheral edema. - Lab 01/15/18 03:27 01/15/18 03:27 Most recent lab results Calcium 6.7 mg/dL (8.6-10.3) L 01/15/18 03:27 Phosphorus 2.3 mg/dL (2.7-4.5) L 01/15/18 03:27 Magnesium 1.5 mg/dL (1.6-2.6) L 01/15/18 03:27 Consult Discharge Plan - Plan Referrals: Zaire Mathews DO [Primary Care Provider] - (call upon discharge...)
[2018-01-15] MEDS ORDERED: Potassium Phosphate 44 MEQ in 0.9 % Sodium Chloride 250 ML IVPB ONE ×2 (08:36→15:30)
[2018-01-15] MEDS ORDERED: Potassium Chloride 10 MEQ in 0.9 % Sodium Chloride 100 ML IVPB SCH (08:45)
[2018-01-15] MEDS ORDERED: Potassium Chloride 40 MEQ, Lidocaine 1% 2 ML in D5% in Water 500 ML IVPB ONE (09:00)
[2018-01-15] MEDS: *HR* Promethazine 25 MG/ML VIAL IVP PRN (10:00)
[2018-01-15] MEDS: Piperacillin/Tazobactam 3.375 GM in 0.9 % Sodium Chloride Mini Bag 100 ML IVPB SCH ×2 (10:59→21:32)
[2018-01-15] MEDS ORDERED: hydrALAZINE 10 MG TABLET PO PRN (11:15)
--- NOTE | 2018-01-15 14:05 | Internal Med Progress Note ---
Date of Encounter: 01/15/18 Time of Encounter: 14:02 - Assessment and plan (1) Acute renal failure superimposed on stage 3 chronic kidney disease Current Visit: Yes Status: Acute Assessment and plan: Nephrology evaluation appreciated lopez cath removed continue 0.9% NS @ 75cc/hr avoid nephrotoxic agents will closely monitor renal function (2) Metabolic acidosis Current Visit: Yes Status: Resolved Assessment and plan: secondary to renal dysfunction and GI losses plan as listed above (3) Nausea & vomiting Current Visit: Yes Status: Acute Assessment and plan: resolved continue supportive care anti emetics as needed Qualifiers: Vomiting type: unspecified Vomiting Intractability: non-intractable Qualified Code(s): R11.2 - Nausea with vomiting, unspecified (4) Colitis Current Visit: Yes Status: Acute Assessment and plan: GI on board and evaluation appreciated pt refused EGD today (01/12/18) pt refusing colonoscopy at this time advance diet as tolerated, tolerating diet well will switch to PO steroids and finish last day of abx in am pain control IV fluids anti-emetic support (5) Crohn disease Current Visit: Yes Status: Chronic Qualifiers: Gastrointestinal tract location: unspecified location Digestive disease complication type: without complication Qualified Code(s): K50.90 - Crohn's disease, unspecified, without complications (6) DVT prophylaxis Current Visit: Yes Status: Acute Assessment and plan: heparin sQ (7) Hypertension Current Visit: Yes Status: Chronic Assessment and plan: BP within acceptable range will closely monitor hold Metoprolol of SBP<100 holding lisinopril given renal impairment Qualifiers: Hypertension type: unspecified Qualified Code(s): I10 - Essential (primary ) hypertension (8) Hypokalemia Current Visit: Yes Status: Acute Assessment and plan: K supplemented continue to monitor electrolytes and replace as needed (9) Obesity (BMI 30-39.9) Current Visit: Yes Status: Chronic (10) Hypocalcemia Current Visit: Yes Status: Acute Assessment and plan: Ca supplemented continue to monitor electrolytes and replace as needed (11) Electrolyte abnormality Current Visit: Yes Status: Acute Assessment and plan: hypomagnesemia, hypophosphatemia Mg and Phos supplemented continue to monitor electrolytes and replace as needed - Time Spent With Patient Total time spent is greater than 50% in coordination of care (as documented) at patient's floor/unit and/or counseling patient: - Subjective Interval history: Patient seen and examined at bedside. Sitting in bed and reports of feeling better. Tolerating diet well. Denies any abd pain, nausea or vomiting. Renal function improving with good urine output. noted to be hypokalemic, will closely monitor Potassium levels tentative d/c in am - Constitutional Vitals: Temp Pulse Resp BP Pulse Ox 97.5 F L 52 16 143/59 100 01/15/18 11:17 01/15/18 11:17 01/15/18 11:17 01/15/18 11:17 01/15/18 11:17 General appearance: Present: A&O X 3, no acute distress, obese, answers questions appropriately - Head Head exam: Present: atraumatic, normocephalic - Eye Eye exam: Present: conjuntiva pink, sclera anicteric - Respiratory Respiratory exam: Present: CTAB. Absent: respiratory distress, wheezes - Cardiovascular Cardiovascular exam: Present: RRR, +S1, +S2. Absent: diastolic murmur, gallop, rubs, systolic murmur - GI/Abdominal GI/Abdominal exam: Present: normal bowel sounds, soft, no peritoneal signs. Absent: distended, tenderness - Extremities Exam Extremities exam: Present: warm, radial pulses palpable and symmetrical. Absent : calf tenderness - Neurological Exam Neurological exam: Present: oriented X3 Internal Medicine: Result - Labs CBC & Chem 7: 01/15/18 03:27 01/15/18 03:27 Labs: Short CBC 01/15/18 Range/Units 03:27 WBC 8.5 (4.3-11.1) K/mcL Hgb 8.4 L (11.5-15.4) g/dL Hct 27.7 L (35.3-44.9) % Plt Count 244 (140-400) K/mcL Neutrophils # 7.0 (1.6-8.9) K/mcL BMP 01/15/18 03:27 Sodium 144 Potassium 3.2 L Chloride 115 H Carbon Dioxide 21 L BUN 30 H Creatinine 1.83 H Glucose 112 H Calcium 6.7 L Consult Discharge Plan - Plan Referrals: Zaire Mathews, [Primary Care Provider] - (call upon discharge...)
[2018-01-15] MEDS ORDERED: Calcium Gluconate 2,000 MG in 0.9 % Sodium Chloride 100 ML IVPB ONE (14:07)
[2018-01-16 06:17] LABS: Basophils % 0.1 %; Hematocrit 28.5 % (35.3-44.9); Hemoglobin 8.5 g/dL (11.5-15.4); Immature Granulocytes % 0.6 % (0-4); Lymphocytes # 2.6 K/mcL (0.6-4.6); Lymphocytes % 27.9 %; Mean Corpuscular HGB Conc 29.8 g/dL (31.6-35.5); Mean Corpuscular Hemoglobin 23.8 pg (28.0-33.3); Mean Corpuscular Volume 79.8 fL (83.0-100.0); Mean Platelet Volume 11.4 fL (9.4-12.4); Monocytes % 10.9 %; Neutrophils # 5.6 K/mcL (1.6-8.9); Platelet Count 251 K/mcL (140-400); Red Blood Count 3.57 M/mcL (3.82-4.97); Red Cell Distribution Width 21.2 % (11.5-14.5); Segmented Neutrophils % 60.5 %
[2018-01-16] MEDS: *HR* Heparin 5,000 UNIT/ML VIAL SQ SCH (06:28)
[2018-01-16 06:36] LABS: Albumin 2.8 g/dL (3.5-5.7); Albumin/Globulin Ratio 1.3 (1.1-2.2); Bilirubin,Total 0.6 mg/dL (0.3-1.0); Calcium 6.7 mg/dL (8.6-10.3); Globulin 2.1 g/dL (2.4-3.5); Magnesium 1.4 mg/dL (1.6-2.6); Phosphorous 2.9 mg/dL (2.7-4.5); Potassium 3.5 mEq/L (3.5-5.1); Total Protein 4.9 g/dL (6.4-8.9)
[2018-01-16] MEDS ORDERED: Calcium Gluconate 2,000 MG in 0.9 % Sodium Chloride 100 ML IVPB ONE (07:51)
--- NOTE | 2018-01-16 08:00 | Nephrology Progress Note ---
Date of Encounter: 01/16/18 Time of Encounter: 07:58 - Assessment and Plan (1) Acute renal failure Current Visit: Yes Status: Acute The patient's renal function continues to improve on a daily basis. I suspect she should return all the way back to normal. We can discontinue her maintenance IV fluids today. From a renal standpoint it would be okay to discharge her home. Qualifiers: Acute renal failure type: unspecified Qualified Code(s): N17.9 - Acute kidney failure, unspecified (2) Crohn disease Current Visit: Yes Status: Chronic Qualifiers: Gastrointestinal tract location: unspecified location Digestive disease complication type: without complication Qualified Code(s): K50.90 - Crohn's disease, unspecified, without complications (3) Hypokalemia Current Visit: No Status: Acute (4) Metabolic acidosis Current Visit: Yes Status: Resolved Subjective Interval history: The patient denies any new complaints. She says she is feeling well she is anxious to go home. Her serum creatinine continues to improve. Potassium is 3.5 today. Objective - Vital Signs Vital signs: Vital Signs Temp Pulse Resp BP Pulse Ox 01/16/18 07:05 97.4 F L 50 20 170/69 01/16/18 04:05 97.5 F L 56 16 123/48 97 01/16/18 00:32 98 F 52 14 136/60 99 01/15/18 20:38 98 F 56 16 149/57 96 01/15/18 16:15 97.9 F 52 16 127/63 97 01/15/18 11:17 97.5 F L 52 16 143/59 100 01/15/18 10:51 161/72 Intake and Output 01/15/18 01/15/18 01/16/18 15:59 23:59 07:59 Intake Total 1460 / 1460 370 / 370 600 / 600 Output Total 650 / 650 250 / 250 350 / 350 Balance 810 / 810 120 / 120 250 / 250 Intake: IV Fluids 1100 / 1100 100 / 100 0.9 % Sodium Chloride 1,000 ML 1000 / 1000 @ 75 mls/hr IVC .[id number] [facility] Rx #:[id number] Zosyn 3.375 GM In 0.9 % Sodium 100 / 100 100 / 100 Chloride (Mini-Bag +) 100 ML @ 25 mls/hr IVPB Q12H [facility] Rx#: [id number] Oral 360 / 360 370 / 370 500 / 500 Output: Urine 100 / 100 250 / 250 350 / 350 Catheter 550 / 550 Other: Meal Breakfast Breakfast Percent of Meal Consumed 75% 100% Stool Size Small Small Moderate Stool Consistency loose soft loose Stool Characteristics Normal for Patient Stool Color Brown Brown Brown # Voids 3 2 # Bowel Movements 1 Weight 87.5 kg Patient Weight 01/16/18 23:59 Weight 87.5 kg - General Appearance Exam: Patient is alert and oriented. She is in no acute distress. Lungs clear to auscultation. Heart regular rate and rhythm. Abdomen is benign. There is no lower [place] swelling. - Lab 01/16/18 05:47 01/16/18 05:47 Most recent lab results Calcium 6.7 mg/dL (8.6-10.3) L 01/16/18 05:47 Phosphorus 2.9 mg/dL (2.7-4.5) 01/16/18 05:47 Magnesium 1.4 mg/dL (1.6-2.6) L 01/16/18 05:47 Consult Discharge Plan - Plan Referrals: Zaire Mathews DO [Primary Care Provider] - (call upon discharge...)
[2018-01-16] MEDS ORDERED: predniSONE 20 MG TABLET PO SCH (09:00)
[2018-01-16] MEDS: Piperacillin/Tazobactam 3.375 GM in 0.9 % Sodium Chloride Mini Bag 100 ML IVPB SCH (10:32)
[2018-01-16] MEDS: Famotidine 20 MG TABLET PO SCH (10:37)
--- NOTE | 2018-01-16 11:50 | Discharge Summary ---
- NOTES TO OUTPATIENT PROVIDER Notes to Outpatient Provider: Monitor renal function, pt was given scripts to obtain blood work prior to follow up appointments Date of Encounter: 01/16/18 Time of Encounter: 11:46 - Discharge Diagnosis (1) Acute renal failure superimposed on stage 3 chronic kidney disease Priority: Primary Status: Acute (2) Metabolic acidosis Priority: Secondary Status: Resolved (3) Nausea & vomiting Priority: Secondary Status: Resolved Qualifiers: Vomiting type: unspecified Vomiting Intractability: non-intractable Qualified Code(s): R11.2 - Nausea with vomiting, unspecified (4) Colitis Priority: Secondary Status: Resolved (5) Crohn disease Priority: Secondary Status: Chronic Qualifiers: Gastrointestinal tract location: unspecified location Digestive disease complication type: without complication Qualified Code(s): K50.90 - Crohn's disease, unspecified, without complications (6) DVT prophylaxis Priority: Secondary Status: Acute (7) Hypertension Priority: Secondary Status: Chronic Qualifiers: Hypertension type: unspecified Qualified Code(s): I10 - Essential (primary ) hypertension (8) Hypokalemia Priority: Secondary Status: Acute (9) Obesity (BMI 30-39.9) Priority: Secondary Status: Chronic (10) Hypocalcemia Priority: Secondary Status: Acute (11) Electrolyte abnormality Priority: Secondary Status: Acute Hospital course: Ms. Dimas is a 72 year old female with PMH of Crohn's disease, HTN, HLD, CKD stage 3 who was admitted for acute renal failure and abd pain concerning for colitis. Pt was followed by nephrology and started on IV fluids. Her home dose of lisinopril was placed on hold. She was also followed by GI however refused any intervention (refused EGD and colonoscopy). She was started on empiric abx and steroid therapy to which she responded. Her renal function continued to improve and is close to her baseline. She is back to tolerating PO intake with complete resolution of her nausea and vomiting. She is very agitated and hostile towards the nursing and medical staff. Demanding her discharge, threatening to pull out her IV line and leave against medical advise if things are not done as she is asked. She is noted to be hypertensive due to her agitation. Pt's blood pressure has remained within acceptable range despite holding her home lisinopril dose. Pt will be discharged to home today pending better BP control. She is to follow up with PCP, nephro, and GI after discharge. Pt has complete resolution of her abd discomfort and has received 5 days of steroids and abx. Discharge discussed with: patient, nurse, case management - Time Spent with Patient Total time spent providing and/or coordinating discharge services: Greater than 30 minutes - Discharge Medications Home Medications: Acetaminophen/Diphenhydramine [Acetaminophen Pm Caplet] 2 - 3 tab PO HS [History] Potassium Chloride 20 meq PO TID 10/06/15 [History] Metoprolol [Lopressor] 12.5 mg PO BID 01/10/18 [History] Ranitidine HCl [Acid Warehousing Technician] 150 mg PO DAILY 01/10/18 [History] Sodium Bicarbonate 1,300 mg PO BID 01/10/18 [History] Allergies/Adverse Reactions: 3 Allergy/AdvReac Type Severity Reaction Status Date / Time ciprofloxacin Allergy Rash Verified 04/07/16 06:44 infliximab [From Remicade] Allergy Anaphylaxis Verified 10/06/15 18:37 Date of admission: 01/11/18 01:32 Primary care physician: Zaire Mathews DO Consults: 01/11/18 02:06 Consult to Gastroenterology [CONS] Routine Consulting Provider: Gastroenterology Taylor Reason for Consult: Abdominal pain in setting of Crohn's and colitis on CT Call Completed: No Consult to Nephrology [CONS] Routine Consulting Provider: [facility] EDMUNDO Reason for Consult: ARF on CKD in setting of N/V/D. Cr 8.24 on admission Call Completed: No 01/12/18 11:50 Consult to Invasive Line Access Team [CONS] Routine Reason for Consult: poor access Line Type: EPIV Discharging clinician: Beverly Horne Anticipated date of discharge: 01/16/18 - Constitutional Vitals: Temp Pulse Resp BP Pulse Ox 97.4 F L 50 20 170/69 97 01/16/18 07:05 01/16/18 07:05 01/16/18 07:05 01/16/18 07:05 01/16/18 04:05 General appearance: Present: A&O X 3, no acute distress, obese, answers questions appropriately. Absent: cooperative, pleasant - Head Head exam: Present: atraumatic, normocephalic - Eye Eye exam: Present: conjuntiva pink, sclera anicteric - Respiratory Respiratory exam: Present: CTAB. Absent: respiratory distress, wheezes - Cardiovascular Cardiovascular exam: Present: RRR, +S1, +S2. Absent: diastolic murmur, gallop, rubs, systolic murmur - GI/Abdominal GI/Abdominal exam: Present: normal bowel sounds, soft, no peritoneal signs. Absent: distended, tenderness - Extremities Exam Extremities exam: Present: warm, radial pulses palpable and symmetrical. Absent : calf tenderness - Neurological Exam Neurological exam: Present: oriented X3 - Psychiatric Psychiatric exam: Present: normal affect, normal mood - Patient Status Disposition: Home, Self-Care Condition: Good Functional capacity at discharge: independent ambulation Overall status at discharge: patient is back to baseline - Ambulatory Orders Ambulatory Orders: Basic Metabolic Panel [CHEM] Time Frame: 5 Days, Facility: [facility], Location: Lab - Discharge Instructions Follow Up With: Zaire Mathews DO [Primary Care Provider] - 01/24/18 10:20 am (Please follow up as schedule..) Additional Instructions: Please follow up with your primary care physician within five days after your discharge from the hospital. Please follow up with nephrology within one week after your discharge from the hospital. Please follow up with gastroenterology within one to two weeks after your discharge from the hospital Continue to hold your home dose of Lisinopril until your follow up with your primary care physician. Please obtain the prescribed lab work prior to your follow up with your primary care physician. Resume all other home medications as prescribed by your primary care physician. Closely monitor your blood pressure at home. If noted to have systolic blood pressure greater than 150, you may restart your home dose of Lisinopril. If systolic blood pressure is below 150, continue to hold lisinopril until your follow up with your primary care physician. - Diet and Activity Activity: resume usual activities as tolerated Diet: low fat, low cholesterol, low salt diet
[2018-01-16] MEDS ORDERED: *HR* Metoprolol 5 MG/5 ML VIAL IVP ONE (13:58)
[2018-01-16 15:00] VITALS: BP 155/80
== END 2018-01-16 15:19 | disposition home or self-care (01) | DRG 683 ==
LOC: EMEROO 19:05 → 2ANU 19:05
PROVIDERS: ADMIT Internal Medicine; ATTEND Internal Medicine

== ENCOUNTER 2018-01-27 10:04 | Inpatient (IN) ==
[2018-01-27] MEDS ORDERED: 0.9 % Sodium Chloride 1,000 ML IVC ONE (10:33)
[2018-01-27] MEDS ORDERED: *HR* Promethazine 25 MG/ML VIAL IVP ONE (10:37)
--- NOTE | 2018-01-27 10:39 | Emergency Department Note ---
Disposition Clinical Impression: Dehydration, Tachycardia, Metabolic acidosis Acute renal failure superimposed on stage 3 chronic kidney disease Qualifiers: Acute renal failure type: unspecified Qualified Code(s): N17.9 - Acute kidney failure, unspecified Renal failure Qualifiers: Renal failure chronicity: acute on chronic Acute renal failure type: unspecified Chronic kidney disease stage: unspecified stage Qualified Code(s): N17.9 - Acute kidney failure, unspecified Disposition: Admitted As Inpatient Condition: Good Time of Disposition: 13:16 General Adult HPI - General Chief complaint: ED Nausea/Vomiting/Diarrhea Stated complaint: urinary symptoms Time Seen by Provider: 01/27/18 10:15 Source: patient, family Mode of arrival: ambulatory Limitations: no limitations Nursing Notes Reviewed: Yes Vital Signs Reviewed: Yes - History of Present Illness HPI Narrative: 72-year-old female history of chronic kidney disease, hypertension and Crohn's disease presents to the emergency department initially for dysuria. Patient is very soft-spoken does not answer questions directly. She has her sister at bedside that assist with the history. Patient states she has been weak ever since discharge from the hospital for her acute kidney injury and colitis. She is concerned she may be dehydrated and she continues to have loose watery stools since discharge on January 16. States about 10 episodes of diarrhea day seems to be getting worse. She is concerned she has some dehydration. She denies any fever, cough or recent illness. She currently denies any dysuria but her sister states that the reason why they came. She was placed on steroids and antibiotics during her hospitalization has not been on anything since. She denies any nausea or vomiting. She has some abdominal discomfort generalized throughout same as when she was hospitalized. She denies any bloody stool, black tarry stool, hematuria, hemoptysis or hematemesis. Pain Scale: 3 - Related Data Home Medications Medication Instructions Recorded Confirmed Acetaminophen/Diphenhydramine 2 tab PO HS 10/06/15 01/27/18 [Acetaminophen Pm Caplet] Potassium Chloride 20 meq PO TID 10/06/15 01/27/18 Metoprolol [Lopressor] 12.5 mg PO BID 01/10/18 01/27/18 Ranitidine HCl [Acid Care Tech] 150 mg PO DAILY 01/10/18 01/27/18 Sodium Bicarbonate 1,300 mg PO BID 01/10/18 01/27/18 Lisinopril [Zestril] 20 mg PO BID 01/27/18 01/27/18 Loperamide [Imodium] 2 mg PO Q4HR PRN 01/27/18 01/27/18 Allergies Allergy/AdvReac Type Severity Reaction Status Date / Time ciprofloxacin Allergy Rash Verified 04/07/16 06:44 infliximab [From Remicade] Allergy Anaphylaxis Verified 10/06/15 18:37 All systems ED: reviewed and negative except as stated. Review of Systems: As Per HPI Constitutional: Denies: fever, chills Cardiovascular: Denies: chest pain Respiratory: Denies: cough, dyspnea Gastrointestinal: Reports: diarrhea. Denies: abdominal pain, nausea, vomiting, melena, hematochezia Musculoskeletal: Denies: back pain Integumentary: Denies: rash, abrasion Neurological: Reports: weakness Endocrine: Reports: fatigue Past Medical History - Past Medical History Attestation: Yes The following information was validated with the patient. Source: patient Medical history: Reports: hyperlipidemia, hypertension, renal disease, other Surgical history: Reports: , cholecystectomy, other Psychiatric history: Reports: anxiety, depression BIOFUELS PRODUCTION ASSOCIATE history: Reports: no BIOFUELS PRODUCTION ASSOCIATE history - Social History Smoking Status: Former smoker Smokeless Tobacco Status: No Alcohol use: Reports: rarely Drug use: Reports: none Physical Exam - General Limitations: no limitations General appearance: alert, in no apparent distress - Head Head exam: atraumatic, normocephalic, normal inspection - Eye Eye exam: Present: normal appearance, PERRL, EOMI - ENT ENT exam: normal exam, normal oropharynx, mucous membranes moist - Neck Neck exam: Present: normal inspection, full ROM, trachea midline - Chest Chest inspection: Present: normal inspection, symmetric chest wall rise - Respiratory Respiratory exam: Present: normal lung sounds bilaterally - Cardiovascular Cardiovascular exam: Present: regular rate, normal rhythm, normal heart sounds - Abdominal Exam Abdominal exam: Present: soft, tenderness, normal bowel sounds. Absent: Non- Tender, distention, guarding, rebound, rigidity Abdominal tenderness: Present: diffuse - Extremities Exam Extremities exam: Present: normal inspection, full ROM, normal capillary refill. Absent: tenderness, pedal edema - Neurological Exam Neurological exam: Present: alert, oriented X3 - Psychiatric Psychiatric exam: Present: normal mood, flat affect - Skin Skin exam: Present: warm, dry, intact, normal color. Absent: rash, cyanosis, diaphoresis Course Course Narrative: I reviewed her hospitalization, patient was admitted for acute kidney injury requiring IV fluid hydration antibiotics and steroids for colitis. Patient was followed by gastroenterology but refused endoscopy. Review of the discharge summary it appeared patient was slightly agitated and request discharge. Will check basic labs at this time to evaluate for possible acute kidney injury and dehydration. Will give her 1 L fluid bolus reassess. Patient's initial pressure was systolic 99 but on recheck it was 119. She is not tachycardic. She does have some skin tenting her oral mucosal membranes are moist. On abdominal examination she is mildly tender diffusely throughout no focal tenderness. States this is been the case with her diarrhea. - Reevaluation(s) Reevaluation #1: Rhythm alert. Patient had a run of tachycardia 170 that appeared to be SVT on monitor. Code cart was brought into the room and patient was placed on the monitor with pads. Patient had a strong pulse. She continued to feel similar to her initial presentation of weakness. Denied any chest pain. Stated she just continues to feel weak. A repeat of her blood pressure was stable systolic 130. Within a few seconds patient's heart rate came down to 70s to 90s and shows a sinus rhythm with PACs. No peak T waves. Intervals appear normal QTc 421. No intervention given. Continue IV hydration. Awaiting lab results. Patient will require hospitalization and further evaluation in a step down unit. Time: 11:28 Reevaluation #2: Severe acidosis pH 7.05 on VBG. Likely secondary to renal failure and symptoms of diarrhea from bicarbonate loss. Patient placed on Bicarb gtt. Prior FLORENTIN resolved with IVF during past hospitalization. No evidence of heart failure. - Consultations Consultation #1: Spoke with the Last Pattern Grader Dr. Blankenship, agree that the tachycardia may be due to dehydration and renal failure. Would not recommend amiodarone or bicarb at this time. Continue to rehydrate. Suspect mostly metabolic acidosis from dehydration and renal and less likely cardiac. Time: 12:12 Consultation #2: Spoke with on-call hospitalist dulce maria Reed to admit for acute kidney injury , tachycardia, metabolic acidosis. No further orders at this time. Still awaiting call back from nephrologists for further recommendations or interventions. Patient remains hemodynamically stable and continues to have brief intermittent runs of tachycardia for a second at a time. Time: 12:55 Consultation #3: Spoke to her rod hanger Dr. Camargo who is familiar with this patient reports that she is noncompliant with her medications. Given her symptoms she agrees with hospitalization. Does recommend to place her on a bicarb drip of D 5 1/2 normal with 3 amps of bicarb at 150 cc/hr Time: 13:50 Vital Signs Temperature 97.6 F 01/27/18 10:10 Pulse Rate 87 01/27/18 10:10 Respiratory Rate 15 01/27/18 10:10 Blood Pressure 99/58 01/27/18 10:10 O2 Sat by Pulse Oximetry 98 01/27/18 10:10 Temperature 97.6 F 01/27/18 10:10 Pulse Rate 78 01/27/18 13:07 Respiratory Rate 18 01/27/18 13:07 Blood Pressure 115/49 01/27/18 13:07 O2 Sat by Pulse Oximetry 99 01/27/18 13:07 Oxygen Delivery Oxygen Delivery Room Air Medical Decision Making - MDM Narrative Medical decision making narrative: Patient was discussed with my attending physician who agrees with ED management and final disposition. They independently evaluated the patient. Please refer to their attestation to this encounter for additional information. This note was generated by [employer] voice recognition software and as a result grammatical or spelling errors may occur using this program. - Medical Records Medical records reviewed: Yes I reviewed the patient's medical records. - Lab Data Lab results reviewed: Yes I reviewed the patient's lab results. Result diagrams: 01/27/18 10:26 01/27/18 10:26 Lab Results 01/27/18 01/27/18 01/27/18 Range/Units 10:26 10:26 10:37 WBC 11.3 H (4.3-11.1) K/mcL RBC 4.05 (3.82-4.97) M/mcL Hgb 9.8 L (11.5-15.4) g/dL Hct 33.8 L (35.3-44.9) % MCV 83.5 (83.0-100.0) fL MCH 24.2 L (28.0-33.3) pg MCHC 29.0 L (31.6-35.5) g/dL RDW 20.6 H (11.5-14.5) % Plt Count 304 (140-400) K/mcL MPV 11.1 (9.4-12.4) fL Immature Gran % 0.4 (0-4) % Seg Neutrophils % 78.4 % Lymphocytes % 15.0 % Monocytes % 5.9 % Eosinophils % 0.0 % Basophils % 0.3 % Neutrophils # 8.8 (1.6-8.9) K/mcL Lymphocytes # 1.7 (0.6-4.6) K/mcL Monocytes # 0.7 (0.0-1.3) K/mcL Eosinophils # 0.0 (0.0-0.6) K/mcL Basophils # 0.0 (0.0-0.2) K/mcL VBG pH (7.32-7.42) pH Units VBG pCO2 (41-51) mmHg VBG pO2 (25-50) mmHg VBG HCO3 (21-27) mEq/L Sodium 144 (136-145) mEq/L Potassium 4.6 (3.5-5.1) mEq/L Chloride 125 H (98-107) mEq/L Carbon Dioxide 8 L* (23-29) mEq/L BUN 59 H (8-23) mg/dL Creatinine 5.08 H (0.60-1.20) mg/dL Est GFR ( Amer) 10 L (> 60) Est GFR (Non-Af Amer) 8 L (> 60) BUN/Creatinine Ratio 12 (6-26) Glucose 173 H (70-105) mg/dL Calculated Osmolality 319 H (280-300) Calcium 7.9 L (8.6-10.3) mg/dL Magnesium (1.6-2.6) mg/dL Total Bilirubin (0.3-1.0) mg/dL Direct Bilirubin (0.0-0.2) mg/dL Indirect Bilirubin (0.0-1.2) mg/dL AST (13-39) Units/L ALT (7-52) Units/L Alkaline Phosphatase (34-104) Units/L Serum Total Protein (6.4-8.9) g/dL Albumin (3.5-5.7) g/dL Globulin (2.4-3.5) g/dL Albumin/Globulin Ratio (1.1-2.2) Lipase (11-82) Units/L TSH (0.340-5.600) mcIU/mL Urine Color (Yellow) Urine Clarity (Clear) Urine pH (5.0-8.0) pH Units Ur Specific [place] (1.010-1.025) Urine Protein (Neg-Trace) mg/dL Urine Glucose (UA) (Normal) mg/dL Urine Ketones (Negative) mg/dL Urine Blood (Negative) Urine Nitrite (Negative) Urine Bilirubin (Negative) Urine Urobilinogen (Normal) mg/dL Ur Leukocyte Esterase (Negative) Urine Microscopic RBC (0-3) per hpf Urine Microscopic WBC (0-3) per hpf Ur Squamous Epith Cells (None-Few) per lpf Urine Bacteria (None-Few) per hpf Hyaline Casts (None-Few) per lpf Urine Yeast (None Seen) per hpf Ur Culture Indicated? (NO) Specimen Rejected Hemolyzed Person Notif of Crit 01/27/18 01/27/18 01/27/18 Range/Units 11:32 12:30 12:30 WBC (4.3-11.1) K/mcL RBC (3.82-4.97) M/mcL Hgb (11.5-15.4) g/dL Hct (35.3-44.9) % MCV (83.0-100.0) fL MCH (28.0-33.3) pg MCHC (31.6-35.5) g/dL RDW (11.5-14.5) % Plt Count (140-400) K/mcL MPV (9.4-12.4) fL Immature Gran % (0-4) % Seg Neutrophils % % Lymphocytes % % Monocytes % % Eosinophils % % Basophils % % Neutrophils # (1.6-8.9) K/mcL Lymphocytes # (0.6-4.6) K/mcL Monocytes # (0.0-1.3) K/mcL Eosinophils # (0.0-0.6) K/mcL Basophils # (0.0-0.2) K/mcL VBG pH 7.05 L* (7.32-7.42) pH Units VBG pCO2 22 L (41-51) mmHg VBG pO2 168 H (25-50) mmHg VBG HCO3 6 L (21-27) mEq/L Sodium (136-145) mEq/L Potassium (3.5-5.1) mEq/L Chloride (98-107) mEq/L Carbon Dioxide (23-29) mEq/L BUN (8-23) mg/dL Creatinine (0.60-1.20) mg/dL Est GFR ( Amer) (> 60) Est GFR (Non-Af Amer) (> 60) BUN/Creatinine Ratio (6-26) Glucose (70-105) mg/dL Calculated Osmolality (280-300) Calcium (8.6-10.3) mg/dL Magnesium 1.3 L (1.6-2.6) mg/dL Total Bilirubin 0.4 (0.3-1.0) mg/dL Direct Bilirubin 0.2 (0.0-0.2) mg/dL Indirect Bilirubin 0.2 (0.0-1.2) mg/dL AST 11 L (13-39) Units/L ALT 12 (7-52) Units/L Alkaline Phosphatase 153 H (34-104) Units/L Serum Total Protein 6.1 L (6.4-8.9) g/dL Albumin 3.5 (3.5-5.7) g/dL Globulin 2.6 (2.4-3.5) g/dL Albumin/Globulin Ratio 1.3 (1.1-2.2) Lipase 54 (11-82) Units/L TSH 0.871 (0.340-5.600) mcIU/mL Urine Color Yellow (Yellow) Urine Clarity Cloudy A (Clear) Urine pH 5.0 (5.0-8.0) pH Units Ur Specific [place] 1.026 H (1.010-1.025) Urine Protein 30 H (Neg-Trace) mg/dL Urine Glucose (UA) Normal (Normal) mg/dL Urine Ketones Negative (Negative) mg/dL Urine Blood Negative (Negative) Urine Nitrite Negative (Negative) Urine Bilirubin Small H (Negative) Urine Urobilinogen Normal (Normal) mg/dL Ur Leukocyte Esterase Negative (Negative) Urine Microscopic RBC 3-5 H (0-3) per hpf Urine Microscopic WBC 5-15 H (0-3) per hpf Ur Squamous Epith Cells Many H (None-Few) per lpf Urine Bacteria None Seen (None-Few) per hpf Hyaline Casts Few (None-Few) per lpf Urine Yeast Moderate H (None Seen) per hpf Ur Culture Indicated? NO (NO) Specimen Rejected Person Notif of Nakul WELCH - EKG Data EKG #1 EKG attestation: Yes I reviewed and interpreted this EKG. EKG results narrative: EKG performed 1118 sinus rhythm 93 bpm with what appears to be premature atrial complex, no ST elevation, there is some ST depression seen and the lateral leads. NH interval 107, QRS 106, QT QTC 370 421. Compared to old EKG performed 11/24/2017 shows similar findings of sinus rhythm with PAC as well as ST depression in the septal leads. No acute ischemic changes. Critical Care Time Critical Care Time: Yes Total Critical Care Time: 35 Attestation: Critical care time 35 minutes managing patient's arrhythmia and acute kidney injury. Attestation Statement - Attestation Attestation: Patient was seen with resident physician. I reviewed the history, physical, assessment and plan, and agree with the findings. I also personally evaluated this patient and had [id number] time with this patient. 72-year-old female presents to the emergency Department chief complaint urinary symptoms. Patient states that she is a history of acute kidney injury for which she was admitted to the hospital. Comes back today just feeling generally weak. She is not sure if this is urinary or not, but it is similar to how she felt when she was admitted for the kidney injury. Patient's a poor historian but denies chest pain shortness of breath abdominal pain swelling of the extremities focal neurologic complaints. Review of systems as above remainder reviewed negative. Physical exam vital signs on arrival stable. Patient appears mildly dehydrated. ENT is unremarkable. Heart regular rhythm and rate. Lungs clear. Abdomen soft nontender. Extremities unremarkable. Neurologically intact. Skin no rashes. Psych patient appears to have a flat affect. ED course. We will start a workup for acute kidney injury and got access to administer IV hydration. Through her stay however the patient developed a tachycardia which is noticed on the design teacher. In reevaluating should switch from a sinus rhythm to sinus arrhythmia. And through the run on the monitor it looks like SVT or some other narrow complex tachycardia at some point. Patient had no chest pain she said that she felt same throughout and had a stable blood pressure throughout. With this change will admit the patient to the hospitalist service for further evaluation and treatment. Additionally we will continue with hydration and cardiac monitoring. We did speak with both cardiology and nephrology to help determine care pathway. Per nephrology she was started on a bicarbonate drip for her acidosis. Agree with resident physician assessment plan. Critical care time 35 minutes.
[2018-01-27 11:19] LABS: Basophils % 0.3 %; Hematocrit 33.8 % (35.3-44.9); Hemoglobin 9.8 g/dL (11.5-15.4); Immature Granulocytes % 0.4 % (0-4); Lymphocytes # 1.7 K/mcL (0.6-4.6); Mean Corpuscular Hemoglobin 24.2 pg (28.0-33.3); Mean Corpuscular Volume 83.5 fL (83.0-100.0); Mean Platelet Volume 11.1 fL (9.4-12.4); Monocytes # 0.7 K/mcL (0.0-1.3); Monocytes % 5.9 %; Neutrophils # 8.8 K/mcL (1.6-8.9); Platelet Count 304 K/mcL (140-400); Red Blood Count 4.05 M/mcL (3.82-4.97); Red Cell Distribution Width 20.6 % (11.5-14.5); Segmented Neutrophils % 78.4 %
[2018-01-27 11:35] LABS: Calcium 7.9 mg/dL (8.6-10.3); Potassium 4.6 mEq/L (3.5-5.1)
[2018-01-27] MEDS ORDERED: 0.9 % Sodium Chloride 1,000 ML IVC SCH (12:15)
[2018-01-27 12:45] LABS: Bilirubin,Urine Small (Negative); Blood,Urine Negative (Negative); Clarity,Urine Cloudy (Clear); Color,Urine Yellow (Yellow); Glucose,Urine (UA) Normal (Normal); Ketones,Urine Negative (Negative); Leukocyte Esterase,Urine Negative (Negative); Nitrite,Urine Negative (Negative); Protein,Urine 30 mg/dL (Neg-Trace); Specific Gravity,Urine 1.026 (1.010-1.025); Urobilinogen,Urine Normal (Normal)
[2018-01-27 12:47] LABS: Bacteria,Urine None Seen per hpf (None-Few); Squamous Epithelial Cell,Urine Many per lpf (None-Few)
[2018-01-27 13:04] LABS: Hyaline Casts,Urine Few per lpf (None-Few); Yeast,Urine Moderate per hpf (None Seen)
[2018-01-27 13:33] LABS: Albumin 3.5 g/dL (3.5-5.7); Albumin/Globulin Ratio 1.3 (1.1-2.2); Bilirubin,Direct 0.2 mg/dL (0.0-0.2); Bilirubin,Indirect 0.2 mg/dL (0.0-1.2); Bilirubin,Total 0.4 mg/dL (0.3-1.0); Globulin 2.6 g/dL (2.4-3.5); Magnesium 1.3 mg/dL (1.6-2.6); Total Protein 6.1 g/dL (6.4-8.9)
[2018-01-27 13:46] LABS: Thyroid Stimulating Hormone 0.871 mcIU/mL (0.340-5.600)
[2018-01-27 13:47] LABS: VBG HCO3 6 mEq/L (21-27); VBG PCO2 22 mmHg (41-51); VBG PH 7.05 pH Units (7.32-7.42); VBG PO2 168 mmHg (25-50)
[2018-01-27] MEDS ORDERED: Sodium Bicarbonate 150 MEQ in D5% in 0.45% NACL 1,000 ML IVC SCH (14:00)
[2018-01-27] MEDS ORDERED: Naloxone 0.4 MG/ML INJ IVP PRN (15:05)
--- NOTE | 2018-01-27 15:47 | Internal Med History&Physical ---
Addendum entered and electronically signed by Naman Wong 01/28/18 13:36: Original Note: <Naman Wong - Last Filed: 01/27/18 15:42> Date of Encounter: 01/27/18 Time of Encounter: 15:42 Internal Medicine - H&P: HPI Chief complaint: weakness and dysuria Admitted From: Home Plans for Post Hospital Care: Home History of present illness: Ms. Dimas is a 72 year old female with a PMH of colitis, HLD, HTN and stage III renal disease. She presents today for weakness, fatigue and dysuria as well as a 10 day history of diarrhea reporting approximately 8-10 episodes of diarrhea daily.. The patient is confused and does not anticipate examination appropriately. All information obtained from chart review and physician report. The patient is reported to have common she was concerned she was dehydrated due to a 10 day history of loose watery stool since discharge from the hospital on January 16. During her last stay she was receiving Zosyn for a diagnosis of colitis. Also, the patient is reporting some dysuria which began to occur a couple of days ago. The patient has a history of colitis however, she denies taking any medications for this. She has not been taking any OTC medications for the diarrhea. Her sister states that she has not had any fevers , chills, cough, chest pain, nausea, vomiting or flank pain. She is complaining of some generalized abdominal discomfort. Her sister reports that her mental status is altered and that she appears more confused than normal. She reports that is similar to her presentation upon last admission she was found to have an acute kidney injury. Lab work today reveals leukocytosis and an acute on chronic kidney injury with a creatinine of 5.08, BUN of 59 and GFR of 10. Additionally, there is noted to be I abnormalities including hypocalcemia and hypomagnesemia. UA negative for UTI. She is being admitted for acute on chronic kidney injury and for the acute diarrhea. Past Med Surg Social Fam HX - Past Medical History Medical history: hyperlipidemia, hypertension, renal disease, other Psychiatric history: anxiety, depression - Past Surgical History Surgical History: , cholecystectomy, other - Social History Smoking Status: Former smoker Smokeless Tobacco Status: No Alcohol use: rarely Drug use: none - Family History Mother Adopted: No Living Status: Hx Family Cardiac Disorders: Yes Hx Family Respiratory Disorders: No Hx Family Cancer: No Hx Family GI Disorders: Yes Hx Family Endocrine Disorder: Yes (DIABETES MELLITUS.) Hx Family Neuromuscular Disorders: No Hx Family Neurologic Disorders: Yes (STROKE) Hx Family HEENT Disorders: No Hx Family Autoimmune Disorders: No Internal Medicine - H&P: Meds Acetaminophen/Diphenhydramine [Acetaminophen Pm Caplet] 2 tab PO HS 10/06/15 [ History] Potassium Chloride 20 meq PO TID 10/06/15 [History] Metoprolol [Lopressor] 12.5 mg PO BID 01/10/18 [History] Ranitidine HCl [Acid Net Application Architect] 150 mg PO DAILY 01/10/18 [History] Sodium Bicarbonate 1,300 mg PO BID 01/10/18 [History] Lisinopril [Zestril] 20 mg PO BID 01/27/18 [History] Loperamide [Imodium] 2 mg PO Q4HR PRN 01/27/18 [History] 3 Allergy/AdvReac Type Severity Reaction Status Date / Time ciprofloxacin Allergy Rash Verified 04/07/16 06:44 infliximab [From Remicade] Allergy Anaphylaxis Verified 10/06/15 18:37 ROS unobtainable: due to mental status All Systems PM: A 10-system review of systems was performed and is negative for pertinent findings except as documented above in the HPI. - Constitutional Vitals: Temp Pulse Resp BP Pulse Ox 97.6 F 78 18 115/49 99 01/27/18 10:10 01/27/18 13:07 01/27/18 13:07 01/27/18 13:07 01/27/18 13:07 Exam: PHYSICAL EXAMINATION: GENERAL: The patient is an ill-appearing female in moderate distress. She is alert and oriented to self, disoriented to place and situation as well as time HEENT: Head is normocephalic and atraumatic. Extraocular muscles are intact. Pupils are equal, round, and reactive to light and accommodation. NECK: Supple. No carotid bruits. No lymphadenopathy or thyromegaly. LUNGS: Clear/diminished to auscultation. HEART: Regular rate and rhythm without murmur. ABDOMEN: Soft, and nondistended. Positive bowel sounds. No hepatosplenomegaly was noted. Mild diffuse abdominal tenderness EXTREMITIES: No edema, radial pulses 2+ bilaterally, DP/PT 2+ bilaterally NEUROLOGIC: No facial droop, or slurred speech. Confusion and difficulty participating in conversation. No focal neuro deficits PSYCHIATRIC: Flat affect SKIN: No ulceration, rashes or lesions present Internal Med - H&P Results - Labs CBC & Chem 7: 01/27/18 10:26 01/27/18 10:26 - Assessment and plan (1) Acute renal failure superimposed on stage 3 chronic kidney disease Current Visit: Yes Status: Acute Assessment and plan: Acute renal failure and superimposed stage III kidney disease secondary to a 10 day history of diarrhea. Serum creatinine today 5.08, BUN of 59 and GFR of 10 Consult to nephrology-Dr. Brown on board and will see in consultation. He has recommended D5 0.45 with 150meq of bicarbonate IVF. Consultation appreciated Avoid nephrotoxic agents Closely monitor renal function Qualifiers: Acute renal failure type: unspecified Qualified Code(s): N17.9 - Acute kidney failure, unspecified; N18.3 - Chronic kidney disease, stage 3 (moderate) ; N18.3 - Chronic kidney disease, stage 3 (moderate) (2) Crohn disease Current Visit: Yes Status: Chronic Assessment and plan: Presenting today with a 10 day history of diarrhea reporting 810 episodes of diarrhea daily. I suspect this is an exacerbation of her Crohn's illness. History of Crohn's disease. Currently not on medications for Crohn's. She was previously on Remicade however had a reaction after infusion and has not taken it since. At one time the patient was prescribed Humira but but did not take the medication due to issues with co-pay. Last colonoscopy in March 2016 showing no colitis or active Crohn's disease. She was recently admitted in early January 2018 and offered have an EGD and colonoscopy however she refused at that time. -Consult gastroenterology to discuss EGD and colonoscopy and for further recommendations. 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 Continues to have abdominal pain, unable to perform CT exam for reassessment today due to worsening renal function. Qualifiers: Gastrointestinal tract location: unspecified location Digestive disease complication type: without complication Qualified Code(s): K50.90 - Crohn's disease, unspecified, without complications (3) Acute metabolic encephalopathy Current Visit: Yes Status: Acute Assessment and plan: Weakness, fatigue, confusion. She has renal dysfunction and a 10-day h/o diarrhea with 8-10 episodes of diarrhea dialy. H/o Crohn's. Has a metabolic acidosis today with a PH of 7.05, PCO2 22, PO2 168, HCO3 6. Continue to infuse D5 0.45 with 150meq bicarbonate Closely monitor replace electrolytes Venous blood gas this evening Continue to closely monitor for any further decline in mental status or change in LOC Nephrology on board (4) Dehydration Current Visit: Yes Status: Acute Assessment and plan: see plan above (5) Metabolic acidosis Current Visit: Yes Status: Acute Assessment and plan: Secondary to renal dysfunction and GI loss Nephrology consult-ED physician spoke with Dr. Brown who will see the patient in consultation Continue D5 0.45 with 150meq of sodium bicarbonate Recheck venous blood gas (6) Anemia Current Visit: Yes Status: Acute Assessment and plan: History of chronic anemia, likely secondary to chronic renal disease. No active bleeding noted, hemoglobin and hematocrit stable compared to prior labs. Appears to be a nutritional anemia with a B12 156 on last admission. 1mcg vitamin B12 daily CBC D in the morning Qualifiers: Anemia type: B12 deficiency Qualified Code(s): D51.0 - Vitamin B12 deficiency anemia due to intrinsic factor deficiency (7) Hypocalcemia Current Visit: Yes Status: Acute Assessment and plan: Replace as needed (8) Hypomagnesemia Current Visit: Yes Status: Acute Assessment and plan: Replace as needed (9) SVT (supraventricular tachycardia) Current Visit: Yes Status: Acute Assessment and plan: Episodes of SVT this afternoon. Patient had a run of SVT with a rate of 170s while in the ED, that was self-limiting. EKG obtained following run of SVT did not show any ST elevations, depressions or peaked T waves. Cardiology consult, the ED physician spoke with master ocean who feels that he SVT is most likely due to metabolic acidosis from dehydration and kidney injury. Continuous telemetry Closely monitor electrolytes and correct as needed (10) Hypertension Current Visit: Yes Status: Chronic Assessment and plan: resume beta [employer] LINDA inhibitor due to kidney injury Closely monitor hemodynamic status Qualifiers: Hypertension type: essential hypertension Qualified Code(s): I10 - Essential (primary) hypertension (11) Obesity (BMI 30-39.9) Current Visit: Yes Status: Chronic (12) DVT prophylaxis Current Visit: Yes Status: Acute Assessment and plan: Heparin 5000 units SC BID - Time Spent With Patient Total time spent is greater than 50% in coordination of care (as documented) at patient's floor/unit and/or counseling patient: Greater than 35 minutes <Billie Akbar - Last Filed: 01/28/18 14:39> Date of Encounter: 01/28/18 Internal Medicine - H&P: HPI History of present illness: Ms. Dimas is a 72 year old female All Systems PM: A 10-system review of systems was performed and is negative for pertinent findings except as documented above in the HPI. - Constitutional Vitals: Temp Pulse Resp BP Pulse Ox 98.7 F 85 18 141/66 98 01/28/18 08:08 01/28/18 08:08 01/28/18 08:08 01/28/18 08:08 01/28/18 08:08 Internal Med - H&P Results - Labs CBC & Chem 7: 01/28/18 05:16 01/28/18 05:16 Labs: Short CBC 01/28/18 Range/Units 05:16 WBC 5.4 D (4.3-11.1) K/mcL Hgb 7.6 L D (11.5-15.4) g/dL Hct 24.7 L (35.3-44.9) % Plt Count 215 (140-400) K/mcL Neutrophils # 3.3 (1.6-8.9) K/mcL BMP 01/27/18 01/28/18 23:21 05:16 Sodium 143 147 H Potassium 3.6 3.4 L Chloride 124 H 125 H Carbon Dioxide 11 L 15 L BUN 50 H 42 H Creatinine 3.22 H 2.63 H Glucose 94 112 H Calcium 7.6 L 7.3 L Liver Function 01/28/18 Range/Units 05:16 Total Bilirubin 0.6 (0.3-1.0) mg/dL AST 9 L (13-39) Units/L ALT 9 (7-52) Units/L Alkaline Phosphatase 122 H (34-104) Units/L Albumin 2.8 L (3.5-5.7) g/dL - ABG Interpretation ABG results: 01/27/18 01/27/18 18:47 23:34 VBG pH 7.14 L* 7.28 L D VBG pCO2 27 L 23 L VBG pO2 127 H 214 H VBG HCO3 9 L 11 L - Attending Attestation Examined, reviewed and agreed with the plan of care - Assessment and plan (1) SVT (supraventricular tachycardia) Current Visit: Yes Status: Resolved (2) Anemia Current Visit: Yes Status: Chronic Qualifiers: Anemia type: B12 deficiency Vitamin B12 deficiency anemia type: unspecified B12 deficiency Qualified Code(s): D51.9 - Vitamin B12 deficiency anemia, unspecified (3) Crohn disease Current Visit: Yes Status: Chronic Qualifiers: Gastrointestinal tract location: unspecified location Digestive disease complication type: without complication Qualified Code(s): K50.90 - Crohn's disease, unspecified, without complications (4) DVT prophylaxis Current Visit: Yes Status: Acute (5) Hypomagnesemia Current Visit: Yes Status: Acute (6) Acute renal failure superimposed on stage 3 chronic kidney disease Current Visit: Yes Status: Acute Qualifiers: Acute renal failure type: unspecified Qualified Code(s): N17.9 - Acute kidney failure, unspecified; N18.3 - Chronic kidney disease, stage 3 (moderate) ; N18.3 - Chronic kidney disease, stage 3 (moderate) (7) Hypertension Current Visit: Yes Status: Chronic Qualifiers: Hypertension type: essential hypertension Qualified Code(s): I10 - Essential (primary) hypertension (8) Obesity (BMI 30-39.9) Current Visit: Yes Status: Chronic (9) Hypocalcemia Current Visit: Yes Status: Acute (10) Metabolic acidosis Current Visit: Yes Status: Acute (11) Acute metabolic encephalopathy Current Visit: Yes Status: Acute - Time Spent With Patient Total time spent is greater than 50% in coordination of care (as documented) at patient's floor/unit and/or counseling patient:
[2018-01-27] MEDS: *HR* Heparin 5,000 UNIT/ML VIAL SQ SCH (16:49)
[2018-01-27] MEDS ORDERED: *HR* Metoprolol 5 MG/5 ML VIAL IVP ONE ×2 (18:16→18:17)
[2018-01-27 18:54] LABS: VBG HCO3 9 mEq/L (21-27); VBG PCO2 27 mmHg (41-51); VBG PH 7.14 pH Units (7.32-7.42); VBG PO2 127 mmHg (25-50)
[2018-01-27] MEDS ORDERED: Ondansetron 4 MG/2 ML VIAL ONE (20:05)
[2018-01-27] MEDS ORDERED: Lisinopril 20 MG TABLET PO SCH (21:00)
[2018-01-27] MEDS: *HR* Promethazine 25 MG/ML VIAL IVP PRN (21:11)
[2018-01-27] MEDS: (Acetaminophen/Diphenhydramine [Acetaminophen Pm Capl PO SCH (22:56)
[2018-01-27 23:40] LABS: VBG HCO3 11 mEq/L (21-27); VBG PCO2 23 mmHg (41-51); VBG PH 7.28 pH Units (7.32-7.42); VBG PO2 214 mmHg (25-50)
[2018-01-27 23:53] LABS: Calcium 7.6 mg/dL (8.6-10.3); Potassium 3.6 mEq/L (3.5-5.1)
[2018-01-28] MEDS: Sodium Bicarbonate 150 MEQ in D5% in 0.45% NACL 1,000 ML IVC SCH ×4 (00:27→21:50)
[2018-01-28] MEDS: Ondansetron 4 MG/2 ML VIAL IVP PRN (03:33)
[2018-01-28] MEDS: *HR* Promethazine 25 MG/ML VIAL IVP PRN ×3 (04:03→21:57)
[2018-01-28] MEDS: *HR* Heparin 5,000 UNIT/ML VIAL SQ SCH ×2 (05:23→16:51)
[2018-01-28 05:46] LABS: Basophils % 0.4 %; Hematocrit 24.7 % (35.3-44.9); Immature Granulocytes % 0.6 % (0-4); Lymphocytes # 1.6 K/mcL (0.6-4.6); Lymphocytes % 29.2 %; Mean Corpuscular HGB Conc 30.8 g/dL (31.6-35.5); Mean Corpuscular Hemoglobin 24.5 pg (28.0-33.3); Mean Corpuscular Volume 79.7 fL (83.0-100.0); Monocytes # 0.5 K/mcL (0.0-1.3); Monocytes % 9.2 %; Neutrophils # 3.3 K/mcL (1.6-8.9); Platelet Count 215 K/mcL (140-400); Red Cell Distribution Width 20.4 % (11.5-14.5); Segmented Neutrophils % 60.6 %
[2018-01-28 05:47] LABS: Hemoglobin 7.6 g/dL (11.5-15.4)
[2018-01-28 06:06] LABS: Albumin 2.8 g/dL (3.5-5.7); Albumin/Globulin Ratio 1.4 (1.1-2.2); Bilirubin,Total 0.6 mg/dL (0.3-1.0); Calcium 7.3 mg/dL (8.6-10.3); Potassium 3.4 mEq/L (3.5-5.1); Total Protein 4.8 g/dL (6.4-8.9)
[2018-01-28 06:31] LABS: Magnesium 1.5 mg/dL (1.6-2.6)
--- NOTE | 2018-01-28 07:49 | Nephrology Consult Note ---
Date of Encounter: 01/28/18 Time of Encounter: 07:47 Assessment and Plan (1) Acute renal failure Current Visit: No Status: Acute Patient has recurrent acute kidney injury with severe metabolic acidosis in the setting of diarrhea related to untreated inflammatory bowel disease. Patient is improving with IV fluids as well as bicarbonate replacement. I will continue the same medical regimen. Her potassium is low so I will order some potassium replacement. Qualifiers: Acute renal failure type: unspecified Qualified Code(s): N17.9 - Acute kidney failure, unspecified (2) Crohn disease Current Visit: Yes Status: Chronic Qualifiers: Gastrointestinal tract location: unspecified location Digestive disease complication type: without complication Qualified Code(s): K50.90 - Crohn's disease, unspecified, without complications (3) Metabolic acidosis Current Visit: Yes Status: Acute History of Present Illness - History of Present Illness This is 72-year-old female who was been seen repeatedly in the hospital because of acute kidney injury with associated severe metabolic acidosis. This reoccurs in the setting of chronic diarrhea related to inflammatory bowel disease. Patient has refused in the past to the best of my knowledge any specific treatment for the inflammatory bowel disease. She was hospitalized here earlier in the month with the same situation. Following hospitalization earlier this month she did not follow-up with GI. When asked why she says she said they did not call to make an appointment. She presents once again with a creatinine of 5.08 and his serum bicarbonate level of 8. She has been maintained on IV fluids overnight. Her creatinine is down to 2.63 and her bicarbonate is up to 15. Patient says she was having 8-10 stools per day. She was discharged earlier in the month her creatinine was down to 1.58 on January 16. Previous creatinines have been normal following recovery of episodes of acute kidney injury. Past Med Surg Social Fam HX - Past Medical History Medical history: hyperlipidemia, hypertension, renal disease, other Psychiatric history: anxiety, depression - Past Surgical History Surgical History: , cholecystectomy - Social History Smoking Status: Former smoker Smokeless Tobacco Status: No Alcohol use: rarely Drug use: none - Family History Mother Adopted: No Living Status: Hx Family Cardiac Disorders: Yes Hx Family Respiratory Disorders: No Hx Family Cancer: No Hx Family GI Disorders: Yes Hx Family Endocrine Disorder: Yes (DIABETES MELLITUS.) Hx Family Neuromuscular Disorders: No Hx Family Neurologic Disorders: Yes (STROKE) Hx Family HEENT Disorders: No Hx Family Autoimmune Disorders: No Medications and Allergies Acetaminophen/Diphenhydramine [Acetaminophen Pm Caplet] 2 tab PO HS 10/06/15 [ History] Potassium Chloride 20 meq PO TID 10/06/15 [History] Metoprolol [Lopressor] 12.5 mg PO BID 01/10/18 [History] Ranitidine HCl [Acid Hazardous Waste Remover] 150 mg PO DAILY 01/10/18 [History] Sodium Bicarbonate 1,300 mg PO BID 01/10/18 [History] Lisinopril [Zestril] 20 mg PO BID 01/27/18 [History] Loperamide [Imodium] 2 mg PO Q4HR PRN 01/27/18 [History] 3 Allergy/AdvReac Type Severity Reaction Status Date / Time ciprofloxacin Allergy Rash Verified 04/07/16 06:44 infliximab [From Remicade] Allergy Anaphylaxis Verified 10/06/15 18:37 Review of Systems Constitutional: as per HPI, weakness Nose, mouth and throat: no dizziness, no headache(s) Cardiovascular: dyspnea on exertion Respiratory: dyspnea on exertion Gastrointestinal: as per HPI, diarrhea Musculoskeletal: no muscle weakness, no numbness Integumentary: no hirsutism, no striae Neurological: weakness Psychiatric: no depression, no difficulty concentrating Endocrine: as per HPI Exam - Vital Signs Vital signs: Initial Vital Signs Temp Pulse Resp BP Pulse Ox 97.6 F 87 15 99/58 98 01/27/18 10:10 01/27/18 10:10 01/27/18 10:10 01/27/18 10:10 01/27/18 10:10 Vital Signs - Last 8 Hours Temp Pulse Resp BP Pulse Ox 01/28/18 03:09 98.9 F 69 20 128/53 96 Intake and Output 01/27/18 01/27/18 01/28/18 15:59 23:59 07:59 Intake Total 160 / 400 1150 / 1150 Output Total 1100 / 1100 Balance 160 / 100 50 / 50 Intake: IV Fluids 160 / 160 1150 / 1150 Sodium Bicarbonate 150 MEQ In 1150 / 1150 D5% And 0.45% Nacl 1000 Ml Bag 1,000 ML @ 150 mls/hr IVC . [id number] [facility] Rx#:[id number] Calcium Gluconate 1,000 MG In 0 110 / 110 .9 % Sodium Chloride 100 ML @ 220 mls/hr IVPB ONCE ONE Rx#: [id number] Magnesium Sulfate Premix 2gm/ 50 / 50 50mL 2 gm In 50 ml @ 50 mls/hr IVPB Q5H PRN Rx#:[id number] Output: Urine 200 / 200 Urine/Stool Mix 900 / 900 Other: # Urine Diapers 1 Weight 79.7 kg Patient Weight 01/28/18 23:59 Weight 79.7 kg - General Appearance Exam: On physical exam patient is somewhat obtunded. She she does respond and answer some questions. Blood pressure is 128/53. She is in no acute distress. Lungs essentially clear to auscultation heart regular rate and rhythm. Abdomen is soft. There is no lower extremity swelling. Results - Lab Results 01/28/18 05:16 01/28/18 05:16 Most recent lab results Calcium 7.3 mg/dL (8.6-10.3) L 01/28/18 05:16 Magnesium 1.5 mg/dL (1.6-2.6) L 01/28/18 05:16 Consult Discharge Plan - Plan Referrals: Zaire Mathews, [Primary Care Provider] -
[2018-01-28] MEDS: Famotidine 20 MG TABLET PO SCH (08:49)
[2018-01-28] MEDS: Cyanocobalamin (B-12) 1,000 MCG TABLET PO SCH (08:50)
--- NOTE | 2018-01-28 13:32 | Internal Med Progress Note ---
Date of Encounter: 01/28/18 Time of Encounter: 09:30 - Assessment and plan (1) Acute metabolic encephalopathy Current Visit: Yes Status: Acute Assessment and plan: likely due to acute renal failure and dehydration, acid-base imbalance. Improving mental status; continue current management; supportive care and fall precautions. (2) Acute renal failure superimposed on stage 3 chronic kidney disease Current Visit: Yes Status: Acute Assessment and plan: Baseline serum creatinine around 1.5-1.7; admitted with 5.08, improved to 2.63 today. Likely prerenal due to dehydration and GI losses. Associated with non anion-gap metabolic acidosis. Continue IV hydration with D51/2NS with sodium bicarbonate, hold nephrotoxic agents; Nephrology consult appreciated; Qualifiers: Acute renal failure type: unspecified Qualified Code(s): N17.9 - Acute kidney failure, unspecified; N18.3 - Chronic kidney disease, stage 3 (moderate) ; N18.3 - Chronic kidney disease, stage 3 (moderate) (3) SVT (supraventricular tachycardia) Current Visit: Yes Status: Resolved Assessment and plan: run of SVT in the ER, that was self-limiting per notes; Cardiology recommended monitoring as it is likely due to metabolic acidosis; (4) Anemia Current Visit: Yes Status: Chronic Assessment and plan: baseline Hb around 10; monitor closely; previous studies show Vit B12 deficiency , continue supplements; Qualifiers: Anemia type: B12 deficiency Vitamin B12 deficiency anemia type: unspecified B12 deficiency Qualified Code(s): D51.9 - Vitamin B12 deficiency anemia, unspecified (5) Crohn disease Current Visit: Yes Status: Chronic Assessment and plan: GI consulted; not on treatment; continues to have significant diarrhea; C.diff toxin negative. PRN Loperamide; Qualifiers: Gastrointestinal tract location: unspecified location Digestive disease complication type: without complication Qualified Code(s): K50.90 - Crohn's disease, unspecified, without complications (6) DVT prophylaxis Current Visit: Yes Status: Acute (7) Hypomagnesemia Current Visit: Yes Status: Acute Assessment and plan: will give IV magnesium sulfate and monitor closely; likely due to GI losses; (8) Hypertension Current Visit: Yes Status: Chronic Qualifiers: Hypertension type: essential hypertension Qualified Code(s): I10 - Essential (primary) hypertension (9) Obesity (BMI 30-39.9) Current Visit: Yes Status: Chronic (10) Hypocalcemia Current Visit: Yes Status: Acute (11) Metabolic acidosis Current Visit: Yes Status: Acute Assessment and plan: plan as above; improving with bicarb drip; - Time Spent With Patient Total time spent is greater than 50% in coordination of care (as documented) at patient's floor/unit and/or counseling patient: - Subjective Interval history: Appears weak; reports weakness and fatigue, feeling sick; has nausea and diarrhea, abdominal and back pain. No chest pain, shortness of breath. SHe lives alone at home; - Constitutional Vitals: Temp Pulse Resp BP Pulse Ox 98.7 F 85 18 141/66 98 01/28/18 08:08 01/28/18 08:08 01/28/18 08:08 01/28/18 08:08 01/28/18 08:08 General appearance: Present: A&O X 2 (appears fatigued), answers questions appropriately - Respiratory Respiratory exam: Present: CTAB (coarse breath sounds B/L). Absent: accessory muscle use, rales, rhonchi, wheezes - Cardiovascular Cardiovascular exam: Present: RRR, +S1, +S2. Absent: diastolic murmur, gallop, rubs, systolic murmur - GI/Abdominal GI/Abdominal exam: Present: normal bowel sounds, soft, no peritoneal signs. Absent: distended, tenderness - Extremities Exam Extremities exam: Present: full ROM, warm, radial pulses palpable and symmetrical. Absent: calf tenderness, cyanotic, pedal edema - Neurological Exam Neurological exam: Present: CN II-XII intact, oriented X3, no focal deficits. Absent: pronater drift, facial droop, speech deficit Internal Medicine: Result - Labs CBC & Chem 7: 01/28/18 05:16 01/28/18 05:16 Labs: Short CBC 01/28/18 Range/Units 05:16 WBC 5.4 D (4.3-11.1) K/mcL Hgb 7.6 L D (11.5-15.4) g/dL Hct 24.7 L (35.3-44.9) % Plt Count 215 (140-400) K/mcL Neutrophils # 3.3 (1.6-8.9) K/mcL BMP 01/27/18 01/28/18 23:21 05:16 Sodium 143 147 H Potassium 3.6 3.4 L Chloride 124 H 125 H Carbon Dioxide 11 L 15 L BUN 50 H 42 H Creatinine 3.22 H 2.63 H Glucose 94 112 H Calcium 7.6 L 7.3 L Liver Function 01/28/18 Range/Units 05:16 Total Bilirubin 0.6 (0.3-1.0) mg/dL AST 9 L (13-39) Units/L ALT 9 (7-52) Units/L Alkaline Phosphatase 122 H (34-104) Units/L Albumin 2.8 L (3.5-5.7) g/dL Consult Discharge Plan - Plan Referrals: Zaire Mathews DO [Primary Care Provider] -
[2018-01-28] MEDS: (Acetaminophen/Diphenhydramine [Acetaminophen Pm Capl PO SCH (20:25)
[2018-01-28] MEDS: traMADol 50 MG TABLET PO PRN (20:43)
[2018-01-29 01:52] LABS: Basophils % 0.3 %; Hematocrit 23.4 % (35.3-44.9); Hemoglobin 7.3 g/dL (11.5-15.4); Immature Granulocytes % 0.2 % (0-4); Lymphocytes # 1.9 K/mcL (0.6-4.6); Mean Corpuscular HGB Conc 31.2 g/dL (31.6-35.5); Mean Corpuscular Hemoglobin 23.9 pg (28.0-33.3); Mean Corpuscular Volume 76.7 fL (83.0-100.0); Mean Platelet Volume 10.7 fL (9.4-12.4); Monocytes # 0.5 K/mcL (0.0-1.3); Monocytes % 7.7 %; Neutrophils # 3.6 K/mcL (1.6-8.9); Platelet Count 196 K/mcL (140-400); Red Blood Count 3.05 M/mcL (3.82-4.97); Red Cell Distribution Width 20.6 % (11.5-14.5); Segmented Neutrophils % 59.8 %
[2018-01-29 02:27] LABS: Calcium 7.3 mg/dL (8.6-10.3); Magnesium 1.6 mg/dL (1.6-2.6); Potassium 3.5 mEq/L (3.5-5.1)
[2018-01-29] MEDS: Sodium Bicarbonate 150 MEQ in D5% in 0.45% NACL 1,000 ML IVC SCH (05:22)
[2018-01-29] MEDS: *HR* Heparin 5,000 UNIT/ML VIAL SQ SCH (05:22)
[2018-01-29] MEDS: Ondansetron 4 MG/2 ML VIAL IVP PRN ×2 (05:30→17:26)
[2018-01-29] MEDS: Famotidine 20 MG TABLET PO SCH (08:34)
[2018-01-29] MEDS: Cyanocobalamin (B-12) 1,000 MCG TABLET PO SCH (08:40)
[2018-01-29] MEDS: *HR* Promethazine 25 MG/ML VIAL IVP PRN ×2 (08:56→19:55)
[2018-01-29] MEDS: traMADol 50 MG TABLET PO PRN ×2 (08:56→23:33)
--- NOTE | 2018-01-29 10:17 | Nephrology Progress Note ---
Date of Encounter: 01/29/18 Time of Encounter: 10:16 - Assessment and Plan (1) Acute renal failure Current Visit: No Status: Acute Patient's creatinine is down to 1.75. CO2 was 24. Potassium is 3.5. I am going to change the patient's maintenance IV to half-normal saline with potassium. Her renal function should continue to improve. She needs definitive treatment for her Crohn's disease otherwise she will continue to have recurrent hospital admissions. Qualifiers: Acute renal failure type: unspecified Qualified Code(s): N17.9 - Acute kidney failure, unspecified (2) Crohn disease Current Visit: Yes Status: Chronic Qualifiers: Gastrointestinal tract location: unspecified location Digestive disease complication type: without complication Qualified Code(s): K50.90 - Crohn's disease, unspecified, without complications (3) Metabolic acidosis Current Visit: Yes Status: Acute Subjective Interval history: Patient reports her diarrhea is improving. Her serum creatinine and metabolic acidosis continued to improve. Vital signs are stable. Urine output is 1.9 L. Objective - Vital Signs Vital signs: Vital Signs Temp Pulse Resp BP Pulse Ox 01/29/18 06:49 98.9 F 85 20 151/59 98 01/29/18 04:37 98.9 F 80 22 162/61 100 01/29/18 03:56 98.9 F 84 22 162/61 100 01/28/18 23:53 98.8 F 75 20 172/93 99 01/28/18 23:33 98.8 F 75 20 172/93 99 01/28/18 20:15 99 F 67 20 154/63 97 01/28/18 16:53 98.9 F 65 20 150/61 99 Intake and Output 01/28/18 01/29/18 01/29/18 23:59 07:59 15:59 Intake Total 1000 / 1000 1000 / 1000 360 / 360 Output Total 700 / 700 300 / 300 Balance 1000 / 1000 300 / 300 60 / 60 Intake: IV Fluids 1000 / 1000 1000 / 1000 Sodium Bicarbonate 150 MEQ In 1000 / 1000 1000 / 1000 D5% And 0.45% Nacl 1000 Ml Bag 1,000 ML @ 150 mls/hr IVC . [id number] [facility] Rx#:[id number] Oral 0 / 0 360 / 360 Output: Urine 300 / 300 Urine/Stool Mix 700 / 700 Other: Meal Breakfast Percent of Meal Consumed 25% Stool Size Small Moderate Stool Consistency loose loose Stool Characteristics Normal for Patient Stool Color Yellow Green # Bowel Movements 1 Weight 80.2 kg Patient Weight 01/29/18 23:59 Weight 80.2 kg - General Appearance Exam: Patient is in no acute distress. Lungs clear to auscultation. Heart regular rate and rhythm. Abdomen is soft. There is no lower extremity swelling. - Lab 01/29/18 01:38 01/29/18 01:38 Most recent lab results Calcium 7.3 mg/dL (8.6-10.3) L 01/29/18 01:38 Magnesium 1.6 mg/dL (1.6-2.6) 01/29/18 01:38 Consult Discharge Plan - Plan Referrals: Zaire Mathews DO [Primary Care Provider] - (SENT WEB REQUEST ON @ [id number])
[2018-01-29] MEDS: 0.45 % Sodium Chloride w/KCl 20 MEQ/1,000 ML MLS IVC SCH (11:14)
--- NOTE | 2018-01-29 11:28 | Gastroenterology Consult Note ---
<Florencia Luna - Last Filed: 01/29/18 11:22> Date of Encounter: 01/29/18 Time of Encounter: 10:20 - Assessment and plan (1) Crohn disease Current Visit: Yes Status: Chronic Assessment and plan: Pt with a longstanding history of Crohn's disease. She is not on any treatment at home. She has been started on IVF and steroids and reports she is feeling better. She needs colonoscopy to assess the extent of her disease. Will plan for tomorrow. Qualifiers: Gastrointestinal tract location: unspecified location Digestive disease complication type: without complication Qualified Code(s): K50.90 - Crohn's disease, unspecified, without complications (2) Anemia Current Visit: Yes Status: Chronic Assessment and plan: Transfuse as needed, stop heparin, monitor H&h colonoscopy tomorrow. Qualifiers: Anemia type: B12 deficiency Vitamin B12 deficiency anemia type: unspecified B12 deficiency Qualified Code(s): D51.9 - Vitamin B12 deficiency anemia, unspecified - Time Spent With Patient Total time spent is greater than 50% in coordination of care (as documented) at patient's floor/unit and/or counseling patient: GI History of Present Illness - Data of Consult Patient: known to practice within the last 3 years Consult date: 01/29/18 Requesting Physician: Karuna Soto MD - Consult Narrative Reason for consult: crohn's disease History of present illness: Ms. Dimas is a 72 year old female with a PMH of colitis, HLD, HTN and stage III renal disease, Crohn's disease, and bowel resection x 2. She was unable to take remicade and was prescribed humira but was unable to afford, therefore she has not been on any treatment. She has had several appointments with Gi but has not followed up in the office since 2014. She was hospitalized earlier this month for Crohn's flare and was treated with antibiotics and steroids. She states since she went home she has had continued diarrhea "several times a day" , she complains of weakness, fatigue and dysuria.ies taking any medications for this. She has not been taking any OTC medications for the diarrhea. She denies fevers, chills, cough, chest pain, nausea, vomiting or flank pain. She is complaining of generalized abdominal discomfort. In ER her sister reported altered mental status. On todays assessment she has very flat affect but is oriented to person, place and time. Hgb was 7.3 on admission. colon: 03/24 Dr Raman: no cloitis, ileo-olonic anastomosis narrowed no active crohn 's seen NSAIDS: denies anticoag: Heparin 0500 Past Med Surg Social Fam HX - Past Medical History Medical history: hyperlipidemia, hypertension, renal disease, other Psychiatric history: anxiety, depression - Past Surgical History Surgical History: , cholecystectomy - Social History Smoking Status: Former smoker Smokeless Tobacco Status: No Alcohol use: rarely Drug use: none - Family History Mother Adopted: No Living Status: Hx Family Cardiac Disorders: Yes Hx Family Respiratory Disorders: No Hx Family Cancer: No Hx Family GI Disorders: Yes Hx Family Endocrine Disorder: Yes (DIABETES MELLITUS.) Hx Family Neuromuscular Disorders: No Hx Family Neurologic Disorders: Yes (STROKE) Hx Family HEENT Disorders: No Hx Family Autoimmune Disorders: No Review of Systems: GI: as per [facility]: denies fever, has some chills EYES: denies yellow discoloration ENT: denies pain with swallowing or difficulty swallowing CARDIO: denies chest pain, palpitations RESP: Shortness of breath with exertion : denies change in color of urine NEURO: weakness HEME: Denies any bruising MS: denies joint pain, joint swelling or back pain. DERM: denies rash or itching PSYCH: history of anxiety and depression - Constitutional Vitals: Temp Pulse Resp BP Pulse Ox 98.9 F 85 20 151/59 98 01/29/18 06:49 01/29/18 06:49 01/29/18 06:49 01/29/18 06:49 01/29/18 06:49 Exam: CONSTITUTIONAL:~alert, no acute distress.~HEAD:~normocephalic.~EYES:~no jaundice.~NECK:~no obvious swelling.~HEART:~regular rate and rhythm, no murmurs. ~LUNGS:~bilateral fair air entry.~ABDOMEN:~non distended, soft, diffusely tender , no masses palpable, midline scars well healed, no organomegaly.~RECTAL EXAM:~ Deferred.~EXTREMITIES:~no clubbing, cyanosis or edema.~SKIN:~pallor noted, no stigmata of chronic liver disease.~NEUROLOGIC:~no obvious focal defect.~~~~ Results - Labs CBC & Chem 7: 01/29/18 01:38 01/29/18 01:38 Labs: Last Result Calcium 7.3 mg/dL (8.6-10.3) L 01/29/18 01:38 Iron 83 mcg/dL (50-170) 01/28/18 05:16 % Saturation 23 % (15-50) 01/28/18 05:16 Transferrin 259 mg/dL (203-362) 01/28/18 05:16 Ferritin 28 ng/ml (10-120) 01/28/18 05:16 Entire Visit Hgb 7.3 g/dL (11.5-15.4) L 01/29/18 01:38 Hct 23.4 % (35.3-44.9) L 01/29/18 01:38 Ferritin 28 ng/ml (10-120) 01/28/18 05:16 Total Bilirubin 0.6 mg/dL (0.3-1.0) 01/28/18 05:16 AST 9 Units/L (13-39) L 01/28/18 05:16 ALT 9 Units/L (7-52) 01/28/18 05:16 Lipase 54 Units/L (11-82) 01/27/18 11:32 Consult Discharge Plan - Plan Referrals: Zaire Mathews DO [Primary Care Provider] - (SENT WEB REQUEST ON @ [id number]) <Roseamry Raman - Last Filed: 01/29/18 14:27> Date of Encounter: 01/29/18 Time of Encounter: 13:30 - Time Spent With Patient Total time spent is greater than 50% in coordination of care (as documented) at patient's floor/unit and/or counseling patient: GI History of Present Illness - Data of Consult Requesting Physician: Karuna Soto MD - Consult Narrative History of present illness: Ms. Dimas is a 72 year old female - Constitutional Vitals: Temp Pulse Resp BP Pulse Ox 98.8 F 69 16 160/67 100 01/29/18 13:58 01/29/18 13:58 01/29/18 13:58 01/29/18 13:58 01/29/18 13:58 Results - Labs CBC & Chem 7: 01/29/18 01:38 01/29/18 01:38 Labs: Last Result Calcium 7.3 mg/dL (8.6-10.3) L 01/29/18 01:38 Iron 83 mcg/dL (50-170) 01/28/18 05:16 % Saturation 23 % (15-50) 01/28/18 05:16 Transferrin 259 mg/dL (203-362) 01/28/18 05:16 Ferritin 28 ng/ml (10-120) 01/28/18 05:16 Entire Visit Hgb 7.3 g/dL (11.5-15.4) L 01/29/18 01:38 Hct 23.4 % (35.3-44.9) L 01/29/18 01:38 Ferritin 28 ng/ml (10-120) 01/28/18 05:16 Total Bilirubin 0.6 mg/dL (0.3-1.0) 01/28/18 05:16 AST 9 Units/L (13-39) L 01/28/18 05:16 ALT 9 Units/L (7-52) 01/28/18 05:16 Lipase 54 Units/L (11-82) 01/27/18 11:32 - Attending Attestation I have personally performed a face to face evaluation on this patient. I have reviewed and agree with the care plan. History and Exam by me shows: Patient seen. Patient with long-standing history of Crohn disease currently not on any medication . In 2014 she has been suggested to be started on biologic but per patient because of the concern for side effects she was reluctant then. Usually she has 10-15 bowel movements a day and now she is being admitted because of flare. Although today she only has one bowel movement and it was watery. Recommendation: We will do stool studies including calpo and stool panel. She will be prepped for colon tomorrow to be done on Monday as she already ate breakfast and lunch today.
[2018-01-29] MEDS ORDERED: 0.9 % Sodium Chloride 250 ML ONE ×2 (13:30→16:39)
--- NOTE | 2018-01-29 15:21 | Internal Med Progress Note ---
Date of Encounter: 01/29/18 Time of Encounter: 10:00 - Assessment and plan (1) Acute metabolic encephalopathy Current Visit: Yes Status: Resolved Assessment and plan: likely due to acute renal failure and dehydration, acid-base imbalance. Mental status improved, currently at baseline. Continue to monitor. (2) Acute renal failure superimposed on stage 3 chronic kidney disease Current Visit: Yes Status: Acute Assessment and plan: Baseline serum creatinine around 1.5-1.7; admitted with 5.08, improved to 1.75 today. Likely prerenal due to dehydration and GI losses. Associated with non anion-gap metabolic acidosis. IV fluids changed to half-normal saline with KCl per nephrology. hold nephrotoxic agents; Nephrology follow-up appreciated; Qualifiers: Acute renal failure type: unspecified Qualified Code(s): N17.9 - Acute kidney failure, unspecified; N18.3 - Chronic kidney disease, stage 3 (moderate) ; N18.3 - Chronic kidney disease, stage 3 (moderate) (3) SVT (supraventricular tachycardia) Current Visit: Yes Status: Resolved (4) Anemia Current Visit: Yes Status: Chronic Assessment and plan: baseline Hb around 10; monitor closely; previous studies show Vit B12 deficiency , continue supplements; Noted to have a drop in hemoglobin worsening, 7.3 today. We will transfuse 1 unit PRBC, hold subcutaneous heparin, monitor hemoglobin closely. Qualifiers: Anemia type: B12 deficiency Vitamin B12 deficiency anemia type: unspecified B12 deficiency Qualified Code(s): D51.9 - Vitamin B12 deficiency anemia, unspecified (5) Crohn disease Current Visit: Yes Status: Chronic Assessment and plan: not on treatment; continues to have significant diarrhea, causing acute kidney injury/metabolic acidosis/electrolyte imbalance; C.diff toxin negative. Follow- up GI panel, fecal calprotectin, ESR and CRP. PRN Loperamide; GI consult appreciated, plan for possible colonoscopy tomorrow; Qualifiers: Gastrointestinal tract location: unspecified location Digestive disease complication type: without complication Qualified Code(s): K50.90 - Crohn's disease, unspecified, without complications (6) DVT prophylaxis Current Visit: Yes Status: Acute Assessment and plan: hold s.c Heparin and start SCDs (7) Hypomagnesemia Current Visit: Yes Status: Resolved Assessment and plan: improved with IV supplementation; (8) Hypertension Current Visit: Yes Status: Chronic Qualifiers: Hypertension type: essential hypertension Qualified Code(s): I10 - Essential (primary) hypertension (9) Obesity (BMI 30-39.9) Current Visit: Yes Status: Chronic (10) Hypocalcemia Current Visit: Yes Status: Acute (11) Metabolic acidosis Current Visit: Yes Status: Acute Assessment and plan: plan as above; improved; held bicarbonate drip at this time; - Time Spent With Patient Total time spent is greater than 50% in coordination of care (as documented) at patient's floor/unit and/or counseling patient: - Subjective Interval history: Reports feeling better. Continues to have some diarrhea. No fever, chills, chest pain, shortness of breath. Tolerates oral diet. Patient understands the importance of being restarted on therapy for Crohn's disease, to avoid recurrent hospitalizations. She is agreeable to colonoscopy at this time. Had a run of NSVT while I was in the room, reported she does not feel too good. - Constitutional Vitals: Temp Pulse Resp BP Pulse Ox 98.8 F 69 16 160/67 100 01/29/18 13:58 01/29/18 13:58 01/29/18 13:58 01/29/18 13:58 01/29/18 13:58 General appearance: Present: A&O X 3, answers questions appropriately - Respiratory Respiratory exam: Present: CTAB. Absent: accessory muscle use, rales, rhonchi, wheezes - Cardiovascular Cardiovascular exam: Present: RRR, +S1, +S2. Absent: diastolic murmur, gallop, rubs, systolic murmur - GI/Abdominal GI/Abdominal exam: Present: normal bowel sounds, soft, no peritoneal signs. Absent: distended, tenderness - Extremities Exam Extremities exam: Present: full ROM, warm, radial pulses palpable and symmetrical. Absent: calf tenderness, cyanotic, pedal edema - Neurological Exam Neurological exam: Present: CN II-XII intact, oriented X3, no focal deficits. Absent: pronater drift, facial droop, speech deficit Internal Medicine: Result - Labs CBC & Chem 7: 01/29/18 01:38 01/29/18 01:38 Labs: Short CBC 01/29/18 Range/Units 01:38 WBC 6.0 (4.3-11.1) K/mcL Hgb 7.3 L (11.5-15.4) g/dL Hct 23.4 L (35.3-44.9) % Plt Count 196 (140-400) K/mcL Neutrophils # 3.6 (1.6-8.9) K/mcL BMP 01/29/18 01:38 Sodium 148 H Potassium 3.5 Chloride 118 H Carbon Dioxide 24 BUN 32 H Creatinine 1.75 H Glucose 106 H Calcium 7.3 L Consult Discharge Plan - Plan Referrals: Zaire Mathews DO [Primary Care Provider] - 02/05/18 10:20 am ()
[2018-01-30] MEDS: *HR* Promethazine 25 MG/ML VIAL IVP PRN ×3 (02:59→23:22)
[2018-01-30] MEDS: 0.45 % Sodium Chloride w/KCl 20 MEQ/1,000 ML MLS IVC SCH (04:10)
[2018-01-30 04:13] LABS: Basophils % 0.4 %; Hematocrit 30.4 % (35.3-44.9); Immature Granulocytes % 0.4 % (0-4); Lymphocytes # 1.3 K/mcL (0.6-4.6); Lymphocytes % 25.2 %; Mean Corpuscular HGB Conc 31.3 g/dL (31.6-35.5); Mean Corpuscular Hemoglobin 25.5 pg (28.0-33.3); Mean Corpuscular Volume 81.7 fL (83.0-100.0); Mean Platelet Volume 11.1 fL (9.4-12.4); Monocytes # 0.5 K/mcL (0.0-1.3); Monocytes % 9.4 %; Neutrophils # 3.4 K/mcL (1.6-8.9); Platelet Count 189 K/mcL (140-400); Red Blood Count 3.72 M/mcL (3.82-4.97); Red Cell Distribution Width 19.8 % (11.5-14.5); Segmented Neutrophils % 64.6 %
[2018-01-30 04:17] LABS: Hemoglobin 9.5 g/dL (11.5-15.4)
[2018-01-30 04:39] LABS: Calcium 7.7 mg/dL (8.6-10.3); Magnesium 1.5 mg/dL (1.6-2.6); Potassium 3.7 mEq/L (3.5-5.1)
[2018-01-30 04:41] LABS: Adenovirus F 40/41 PCR Not detected (Not detect); Astrovirus PCR Not detected (Not detect); Campylobacter by PCR Not detected (Not detect); Cryptosporidium by PCR Not detected (Not detect); Cyclospora cayetanensis PCR Not detected (Not detect); E. coli O157 by PCR Not detected (Not detect); Entamoeba histolytica PCR Not detected (Not detect); Enteroaggregative E.coli(EAEC) Not detected (Not detect); Enteropathogenic E.coli(EPEC) Not detected (Not detect); Enterotoxigenic E.coli (ETEC) Not detected (Not detect); Giardia lamblia PCR Not detected (Not detect); Norovirus GI/GII PCR Not detected (Not detect); Plesiomonas shigelloides PCR Not detected (Not detect); Rotavirus A PCR Not detected (Not detect); Salmonella PCR Not detected (Not detect); Sapovirus PCR Not detected (Not detect); Shig/EnteroinvasiveE coli EIEC Not detected (Not detect); Shigalike tox-prod E coli STEC Not detected (Not detect); Vibrio PCR Not detected (Not detect); Vibrio cholerae PCR Not detected (Not detect); Yersinia enterocolitica PCR Not detected (Not detect)
--- NOTE | 2018-01-30 05:45 | Electrocardiograph Report ---
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
--- NOTE | 2018-01-30 08:05 | Event Note ---
Date of Encounter: 01/30/18 Time of Encounter: 08:05 The patient's renal function and acid base status continued to improve. Nephrology will sign off. Please call again if needed.
[2018-01-30] MEDS: Lisinopril 20 MG TABLET PO SCH (08:35)
[2018-01-30] MEDS: Cyanocobalamin (B-12) 1,000 MCG TABLET PO SCH (08:35)
[2018-01-30] MEDS: Famotidine 20 MG TABLET PO SCH (08:36)
[2018-01-30] MEDS: Ondansetron 4 MG/2 ML VIAL IVP PRN ×2 (08:40→21:10)
--- NOTE | 2018-01-30 10:37 | Gastroenterology Progress Note ---
Date of Encounter: 01/30/18 Time of Encounter: 09:15 - Assessment and plan (1) Crohn disease Current Visit: Yes Status: Chronic Assessment and plan: Pt feels better, diarrhea has slowed down. Continue steroids, colonoscopy tomorrow. Qualifiers: Gastrointestinal tract location: unspecified location Digestive disease complication type: without complication Qualified Code(s): K50.90 - Crohn's disease, unspecified, without complications (2) Anemia Current Visit: Yes Status: Chronic Assessment and plan: Transfuse as needed, stop heparin, monitor H&h colonoscopy tomorrow. Qualifiers: Anemia type: B12 deficiency Vitamin B12 deficiency anemia type: unspecified B12 deficiency Qualified Code(s): D51.9 - Vitamin B12 deficiency anemia, unspecified - Time Spent With Patient Total time spent is greater than 50% in coordination of care (as documented) at patient's floor/unit and/or counseling patient: - Subjective Interval history: Pt awake in bed. States she is feeling some better. She reports only one BM yesterday, denies any bleeding. She is still agreeable to colonoscopy tomorrow. - Constitutional Vitals: Temp Pulse Resp BP Pulse Ox 98.9 F 67 18 179/92 94 01/30/18 06:53 01/30/18 08:06 01/30/18 06:53 01/30/18 06:53 01/30/18 06:53 Exam: CONSTITUTIONAL:~alert, no acute distress.~HEAD:~normocephalic.~EYES:~no jaundice.~NECK:~no obvious swelling.~HEART:~regular rate and rhythm, no murmurs. ~LUNGS:~bilateral good air entry.~ABDOMEN:~non distended, soft, non tender, no masses palpable, no organomegaly, scars well healed.~RECTAL EXAM:~Deferred.~ EXTREMITIES:~no clubbing, cyanosis or edema.~SKIN:~pallor noted, no stigmata of chronic liver disease.~NEUROLOGIC:~no obvious focal defect.~~~~ Results - Labs CBC & Chem 7: 01/30/18 03:20 01/30/18 03:20 Labs: Last Result ESR 21 mm/hr (0-15) H 01/30/18 03:20 Calcium 7.7 mg/dL (8.6-10.3) L 01/30/18 03:20 Iron 83 mcg/dL (50-170) 01/28/18 05:16 % Saturation 23 % (15-50) 01/28/18 05:16 Transferrin 259 mg/dL (203-362) 01/28/18 05:16 Ferritin 28 ng/ml (10-120) 01/28/18 05:16 C-Reactive Protein 10 mg/L (Less than 10) H 01/30/18 03:20 Entire Visit Hgb 9.5 g/dL (11.5-15.4) L D 01/30/18 03:20 Hct 30.4 % (35.3-44.9) L 01/30/18 03:20 Ferritin 28 ng/ml (10-120) 01/28/18 05:16 Total Bilirubin 0.6 mg/dL (0.3-1.0) 01/28/18 05:16 AST 9 Units/L (13-39) L 01/28/18 05:16 ALT 9 Units/L (7-52) 01/28/18 05:16 Lipase 54 Units/L (11-82) 01/27/18 11:32 Consult Discharge Plan - Plan Referrals: Zaire Mathews DO [Primary Care Provider] - 02/05/18 10:20 am ()
--- NOTE | 2018-01-30 13:28 | Internal Med Progress Note ---
Date of Encounter: 01/30/18 Time of Encounter: 10:00 - Assessment and plan (1) Acute metabolic encephalopathy Current Visit: Yes Status: Resolved Assessment and plan: likely due to acute renal failure and dehydration, acid-base imbalance. Mental status improved, currently at baseline. Resolved (2) Acute renal failure superimposed on stage 3 chronic kidney disease Current Visit: Yes Status: Acute Assessment and plan: Baseline serum creatinine around 1.5-1.7; admitted with 5.08, improved to 1.39 today. Likely prerenal due to dehydration and GI losses. Associated with non anion-gap metabolic acidosis. IV fluids discontinued today Qualifiers: Acute renal failure type: unspecified Qualified Code(s): N17.9 - Acute kidney failure, unspecified; N18.3 - Chronic kidney disease, stage 3 (moderate) ; N18.3 - Chronic kidney disease, stage 3 (moderate) (3) Crohn disease Current Visit: Yes Status: Chronic Assessment and plan: not on treatment; continues to have significant diarrhea, causing acute kidney injury/metabolic acidosis/electrolyte imbalance; C.diff toxin negative. Follow- up GI panel, fecal calprotectin, ESR and CRP. PRN Loperamide; GI following. Colonoscopy planned in am Qualifiers: Gastrointestinal tract location: unspecified location Digestive disease complication type: without complication Qualified Code(s): K50.90 - Crohn's disease, unspecified, without complications (4) SVT (supraventricular tachycardia) Current Visit: Yes Status: Resolved Assessment and plan: Resolved (5) Anemia Current Visit: Yes Status: Chronic Assessment and plan: baseline Hb around 10; monitor closely; previous studies show Vit B12 deficiency , continue supplements; Noted to have a drop in hemoglobin and transfused in the last 24hrs.Hemoglobin responded appropriately to 9.5 and 30.4 Qualifiers: Anemia type: B12 deficiency Vitamin B12 deficiency anemia type: unspecified B12 deficiency Qualified Code(s): D51.9 - Vitamin B12 deficiency anemia, unspecified (6) DVT prophylaxis Current Visit: Yes Status: Acute Assessment and plan: Resume sc heparin and continue SCDs (7) Hypomagnesemia Current Visit: Yes Status: Resolved Assessment and plan: improved with IV supplementation; (8) Hypertension Current Visit: Yes Status: Chronic Assessment and plan: resume beta cheryl Resumed lisinopril today Closely monitor hemodynamic status Qualifiers: Hypertension type: essential hypertension Qualified Code(s): I10 - Essential (primary) hypertension (9) Obesity (BMI 30-39.9) Current Visit: Yes Status: Chronic (10) Hypocalcemia Current Visit: Yes Status: Acute (11) Metabolic acidosis Current Visit: Yes Status: Acute - Time Spent With Patient Total time spent is greater than 50% in coordination of care (as documented) at patient's floor/unit and/or counseling patient: - Subjective Interval history: Ms. Dimas is a 72 year old female with a PMH of colitis, HLD, HTN and stage III renal disease. She presents today for weakness, fatigue and dysuria as well as a 10 day history of diarrhea reporting approximately 8-10 episodes of diarrhea daily.Has no acute complaints today. Episodes of diarrhea have resolved - Constitutional Vitals: Temp Pulse Resp BP Pulse Ox 98.4 F 62 17 184/72 97 01/30/18 11:22 01/30/18 11:22 01/30/18 11:22 01/30/18 11:22 01/30/18 11:22 General appearance: Present: A&O X 3, answers questions appropriately - Head Head exam: Present: atraumatic - Neck Neck exam general surgery: Present: supple - Respiratory Respiratory exam: Present: CTAB - Cardiovascular Cardiovascular exam: Present: RRR, +S1, +S2 - GI/Abdominal GI/Abdominal exam: Present: normal bowel sounds, soft - Neurological Exam Neurological exam: Present: alert, normal gait Internal Medicine: Result - Labs CBC & Chem 7: 01/30/18 03:20 01/30/18 03:20 Labs: Short CBC 01/30/18 Range/Units 03:20 WBC 5.3 (4.3-11.1) K/mcL Hgb 9.5 L D (11.5-15.4) g/dL Hct 30.4 L (35.3-44.9) % Plt Count 189 (140-400) K/mcL Neutrophils # 3.4 (1.6-8.9) K/mcL BMP 01/30/18 03:20 Sodium 143 Potassium 3.7 Chloride 111 H Carbon Dioxide 25 BUN 20 Creatinine 1.39 H Glucose 82 Calcium 7.7 L Consult Discharge Plan - Plan Referrals: Zaire Mathews DO [Primary Care Provider] - 02/05/18 10:20 am ()
[2018-01-30] MEDS ORDERED: Polyethylene Glycol 3350 255 GM POWDER PO ONE (16:00)
[2018-01-30] MEDS: hydrALAZINE 25 MG TABLET PO PRN (16:25)
[2018-01-30] MEDS: traMADol 50 MG TABLET PO PRN (21:10)
[2018-01-31] MEDS: hydrALAZINE 25 MG TABLET PO PRN ×3 (03:45→19:55)
[2018-01-31] MEDS: Acetaminophen 325 MG TABLET PO PRN (03:45)
[2018-01-31 04:11] LABS: Basophils % 0.2 %; Hematocrit 30.4 % (35.3-44.9); Hemoglobin 9.5 g/dL (11.5-15.4); Immature Granulocytes % 0.5 % (0-4); Lymphocytes # 1.1 K/mcL (0.6-4.6); Lymphocytes % 27.2 %; Mean Corpuscular HGB Conc 31.3 g/dL (31.6-35.5); Mean Corpuscular Hemoglobin 25.3 pg (28.0-33.3); Mean Corpuscular Volume 81.1 fL (83.0-100.0); Mean Platelet Volume 11.2 fL (9.4-12.4); Monocytes # 0.5 K/mcL (0.0-1.3); Monocytes % 11.8 %; Neutrophils # 2.5 K/mcL (1.6-8.9); Platelet Count 185 K/mcL (140-400); Red Blood Count 3.75 M/mcL (3.82-4.97); Red Cell Distribution Width 19.9 % (11.5-14.5); Segmented Neutrophils % 60.3 %
[2018-01-31 04:29] LABS: Calcium 8.1 mg/dL (8.6-10.3); Magnesium 1.6 mg/dL (1.6-2.6); Phosphorous 2.8 mg/dL (2.7-4.5); Potassium 3.7 mEq/L (3.5-5.1)
[2018-01-31] MEDS: Lisinopril 20 MG TABLET PO SCH (09:19)
[2018-01-31] MEDS: Famotidine 20 MG TABLET PO SCH (09:19)
[2018-01-31] MEDS: Cyanocobalamin (B-12) 1,000 MCG TABLET PO SCH (09:20)
[2018-01-31] MEDS: *HR* Promethazine 25 MG/ML VIAL IVP PRN ×2 (09:20→19:55)
[2018-01-31] MEDS ORDERED: *HR* Midazolam HCl 5 MG/5 ML VIAL IVP ONE (11:47)
[2018-01-31] MEDS ORDERED: *HR* FentaNYL (PF) 100 MCG/2 ML VIAL ONE (11:47)
--- NOTE | 2018-01-31 12:07 | Internal Med Progress Note ---
Date of Encounter: 01/31/18 Time of Encounter: 12:00 - Assessment and plan (1) Acute metabolic encephalopathy Current Visit: Yes Status: Resolved Assessment and plan: likely due to acute renal failure and dehydration, acid-base imbalance. Mental status improved, currently at baseline. Resolved (2) Acute renal failure superimposed on stage 3 chronic kidney disease Current Visit: Yes Status: Acute Assessment and plan: Baseline serum creatinine around 1.5-1.7; admitted with 5.08, improved to 1.32 today. Likely prerenal due to dehydration and GI losses. Associated with non anion-gap metabolic acidosis. Resolving. IV fluids discontinued Qualifiers: Acute renal failure type: unspecified Qualified Code(s): N17.9 - Acute kidney failure, unspecified; N18.3 - Chronic kidney disease, stage 3 (moderate) ; N18.3 - Chronic kidney disease, stage 3 (moderate) (3) Crohn disease Current Visit: Yes Status: Chronic Assessment and plan: not on treatment; continues to have significant diarrhea, causing acute kidney injury/metabolic acidosis/electrolyte imbalance; C.diff toxin negative. Follow- up GI panel, fecal calprotectin, ESR and CRP. PRN Loperamide; GI following. Colonoscopy planned for today Qualifiers: Gastrointestinal tract location: unspecified location Digestive disease complication type: without complication Qualified Code(s): K50.90 - Crohn's disease, unspecified, without complications (4) SVT (supraventricular tachycardia) Current Visit: Yes Status: Resolved Assessment and plan: Resolved (5) Anemia Current Visit: Yes Status: Chronic Assessment and plan: baseline Hb around 10; monitor closely; previous studies show Vit B12 deficiency , continue supplements; Noted to have a drop in hemoglobin and transfused. Hemoglobin responded appropriately to 9.5 and 30.4. Hemoglobin remains stable Qualifiers: Anemia type: B12 deficiency Vitamin B12 deficiency anemia type: unspecified B12 deficiency Qualified Code(s): D51.9 - Vitamin B12 deficiency anemia, unspecified (6) DVT prophylaxis Current Visit: Yes Status: Acute Assessment and plan: Resume sc heparin and continue SCDs (7) Hypomagnesemia Current Visit: Yes Status: Resolved Assessment and plan: improved with IV supplementation; (8) Hypertension Current Visit: Yes Status: Chronic Assessment and plan: resume beta cheryl Resumed lisinopril today Closely monitor hemodynamic status Qualifiers: Hypertension type: essential hypertension Qualified Code(s): I10 - Essential (primary) hypertension (9) Obesity (BMI 30-39.9) Current Visit: Yes Status: Chronic Assessment and plan: Counseled (10) Hypocalcemia Current Visit: Yes Status: Acute Assessment and plan: Replace as needed (11) Metabolic acidosis Current Visit: Yes Status: Acute Assessment and plan: plan as above; improved; held bicarbonate drip at this time; Continue sodium bicarb po - Time Spent With Patient Total time spent is greater than 50% in coordination of care (as documented) at patient's floor/unit and/or counseling patient: - Subjective Interval history: Ms. Dimas is a 72 year old female with a PMH of colitis, HLD, HTN and stage III renal disease. She presents today for weakness, fatigue and dysuria as well as a 10 day history of diarrhea reporting approximately 8-10 episodes of diarrhea daily.Has no acute complaints today. Episodes of diarrhea have resolved - Constitutional Vitals: Temp Pulse Resp BP Pulse Ox 97.9 F 57 20 159/68 96 01/31/18 11:17 01/31/18 11:17 01/31/18 11:17 01/31/18 11:17 01/31/18 11:17 General appearance: Present: A&O X 3, answers questions appropriately - Head Head exam: Present: atraumatic, normocephalic - Respiratory Respiratory exam: Present: CTAB. Absent: accessory muscle use, rales, rhonchi, wheezes - Cardiovascular Cardiovascular exam: Present: RRR, +S1, +S2. Absent: diastolic murmur, gallop, rubs, systolic murmur - Extremities Exam Extremities exam: Present: warm, radial pulses palpable and symmetrical. Absent : calf tenderness, cyanotic, pedal edema - Neurological Exam Neurological exam: Present: CN II-XII intact, oriented X3, no focal deficits. Absent: pronater drift, facial droop, speech deficit Internal Medicine: Result - Labs CBC & Chem 7: 01/31/18 03:45 01/31/18 03:45 Labs: Short CBC 01/31/18 Range/Units 03:45 WBC 4.2 L (4.3-11.1) K/mcL Hgb 9.5 L (11.5-15.4) g/dL Hct 30.4 L (35.3-44.9) % Plt Count 185 (140-400) K/mcL Neutrophils # 2.5 (1.6-8.9) K/mcL BMP 01/31/18 03:45 Sodium 143 Potassium 3.7 Chloride 108 H Carbon Dioxide 27 BUN 14 Creatinine 1.32 H Glucose 83 Calcium 8.1 L Consult Discharge Plan - Plan Referrals: Zaire Mathews DO [Primary Care Provider] - 02/05/18 10:20 am ()
[2018-01-31] MEDS ORDERED: Simethicone 40 MG/0.6 ML MLS IR ONE (12:12)
[2018-01-31] MEDS ORDERED: *HR* Midazolam HCl 2 MG/2 ML VIAL IVP ONE (12:12)
--- NOTE | 2018-01-31 12:12 | Pre-Sedation Evaluation ---
Pre-sedation evaluation - Pre-sedation checklist Date of procedure: 01/31/18 Procedure: Colonoscopy Recent Vitals: Last Vital Signs Temp 97.9 F 01/31/18 12:10 Pulse 76 01/31/18 12:10 Resp 16 01/31/18 12:10 BP 190/76 01/31/18 12:10 Pulse Ox 99 01/31/18 12:10 H&P (including ROS) documented in medical record: Yes Previous reaction to sedatives/anesthetics: No Dietary Status: NPO after Midnight Dentition: dentures removed ASA Classification *see protocol: CLASS III-Severe systemic disease Plan of Care: Pt appropriate candidate for procedure/moderate/conscious sedation , Risks/benefits of procedure/sedation discussed w/ patient/family
[2018-01-31] MEDS: *HR* Heparin 5,000 UNIT/ML VIAL SQ SCH (18:14)
[2018-02-01] MEDS: *HR* Promethazine 25 MG/ML VIAL IVP PRN (03:40)
[2018-02-01] MEDS: Acetaminophen 325 MG TABLET PO PRN (03:42)
[2018-02-01] MEDS: hydrALAZINE 25 MG TABLET PO PRN (04:30)
[2018-02-01] MEDS: *HR* Heparin 5,000 UNIT/ML VIAL SQ SCH (04:30)
[2018-02-01 05:30] LABS: Basophils % 0.6 %; Hematocrit 28.9 % (35.3-44.9); Hemoglobin 8.9 g/dL (11.5-15.4); Immature Granulocytes % 0.6 % (0-4); Lymphocytes # 0.9 K/mcL (0.6-4.6); Lymphocytes % 25.9 %; Mean Corpuscular HGB Conc 30.8 g/dL (31.6-35.5); Mean Corpuscular Hemoglobin 25.1 pg (28.0-33.3); Mean Corpuscular Volume 81.4 fL (83.0-100.0); Mean Platelet Volume 11.7 fL (9.4-12.4); Monocytes # 0.5 K/mcL (0.0-1.3); Monocytes % 13.4 %; Neutrophils # 2.1 K/mcL (1.6-8.9); Platelet Count 183 K/mcL (140-400); Red Blood Count 3.55 M/mcL (3.82-4.97); Red Cell Distribution Width 20.2 % (11.5-14.5); Segmented Neutrophils % 59.5 %
[2018-02-01 06:51] VITALS: BP 120/65
--- NOTE | 2018-02-01 07:58 | Discharge Summary ---
- NOTES TO OUTPATIENT PROVIDER Notes to Outpatient Provider: Fllow up with Dr Raman and PCP. recheck your BP with your PCP. We started you on amlodipine 5mg Orders not resulted at time of discharge: Pending orders 01/29/18 23:41 Calprotectin, Fecal Routine 01/31/18 12:41 Surgical Pathology [PTH] Routine 02/02/18 04:00 Basic Metabolic Panel AM 0400 CBC [Complete Blood Count] [HEME] AM 0400 02/03/18 04:00 Basic Metabolic Panel AM 0400 CBC [Complete Blood Count] [HEME] AM 0400 02/04/18 04:00 Basic Metabolic Panel AM 0400 CBC [Complete Blood Count] [HEME] AM 0400 02/05/18 04:00 Basic Metabolic Panel AM 0400 CBC [Complete Blood Count] [HEME] AM 0400 02/06/18 04:00 Basic Metabolic Panel AM 0400 02/07/18 04:00 Basic Metabolic Panel AM 0400 Date of Encounter: 02/01/18 Time of Encounter: 07:30 - Discharge Diagnosis (1) Acute metabolic encephalopathy Priority: Primary (Resolved) Status: Resolved Assessment and Plan: likely due to acute renal failure and dehydration, acid-base imbalance. Mental status improved, currently at baseline. Resolved (2) Acute renal failure superimposed on stage 3 chronic kidney disease Priority: Primary Status: Acute Assessment and Plan: Baseline serum creatinine around 1.5-1.7; admitted with 5.08, improved to 1.32 today. Likely prerenal due to dehydration and GI losses. Associated with non anion-gap metabolic acidosis. Resolved. IV fluids discontinued (3) Crohn disease Priority: Secondary Status: Chronic Assessment and Plan: not on treatment; continues to have significant diarrhea, causing acute kidney injury/metabolic acidosis/electrolyte imbalance; C.diff toxin negative. Follow- up GI panel, fecal calprotectin, ESR and CRP. PRN Loperamide; GI following. Colonoscopy was done by GI showing moderate crohns clitiis and ileitis which was biopsied. Polyp was also removed. Awaiting pathology results. Follow up with GI. Discharged on budesonide Qualifiers: Gastrointestinal tract location: unspecified location Digestive disease complication type: without complication Qualified Code(s): K50.90 - Crohn's disease, unspecified, without complications (4) SVT (supraventricular tachycardia) Priority: Secondary Status: Resolved Assessment and Plan: Resolved (5) Anemia Priority: Secondary Status: Chronic Assessment and Plan: baseline Hb around 10; monitor closely; previous studies show Vit B12 deficiency , continue supplements; Noted to have a drop in hemoglobin and transfused. Hemoglobin responded appropriately to 9.5 and 30.4. Hemoglobin remains stable Qualifiers: Anemia type: B12 deficiency Vitamin B12 deficiency anemia type: unspecified B12 deficiency Qualified Code(s): D51.9 - Vitamin B12 deficiency anemia, unspecified (6) DVT prophylaxis Priority: Secondary Status: Acute Assessment and Plan: Resume sc heparin and continue SCDs (7) Hypomagnesemia Priority: Secondary Status: Resolved Assessment and Plan: improved with IV supplementation; (8) Hypertension Priority: Secondary Status: Chronic Assessment and Plan: resume beta cheryl Resumed lisinopril and added amlodipine 5mg. will d/c BID lisinopril on discharge Closely monitor hemodynamic status Qualifiers: Hypertension type: essential hypertension Qualified Code(s): I10 - Essential (primary) hypertension (9) Obesity (BMI 30-39.9) Priority: Secondary Status: Chronic Assessment and Plan: Counseled (10) Hypocalcemia Priority: Secondary Status: Acute Assessment and Plan: Replaced as needed (11) Metabolic acidosis Priority: Secondary Status: Acute Hospital course: Ms. Dimas is a 72 year old female - Time Spent with Patient Total time spent providing and/or coordinating discharge services: - Discharge Medications Prescriptions: amLODIPine [Norvasc] 5 mg PO DAILY #30 tablet Budesonide [Uceris] 9 mg PO DAILY #30 tabdr...er Lisinopril [Zestril] 20 mg PO DAILY #60 tablet Home Medications: Acetaminophen/Diphenhydramine [Acetaminophen Pm Caplet] 2 tab PO HS 10/06/15 [ History] Potassium Chloride 20 meq PO TID 10/06/15 [History] Metoprolol [Lopressor] 12.5 mg PO BID 01/10/18 [History] Ranitidine HCl [Acid Process Controls Technician] 150 mg PO DAILY 01/10/18 [History] Sodium Bicarbonate 1,300 mg PO BID 01/10/18 [History] Loperamide [Imodium] 2 mg PO Q4HR PRN 01/27/18 [History] Budesonide [Uceris] 9 mg PO DAILY #30 tabdr...er 02/01/18 [Rx] Cyanocobalamin (B-12) [Vitamin B12] 1,000 mcg PO DAILY tablet 02/01/18 [Rx] Lisinopril [Zestril] 20 mg PO DAILY #60 tablet 02/01/18 [Rx] amLODIPine [Norvasc] 5 mg PO DAILY #30 tablet 02/01/18 [Rx] Allergies/Adverse Reactions: 3 Allergy/AdvReac Type Severity Reaction Status Date / Time ciprofloxacin Allergy Rash Verified 04/07/16 06:44 infliximab [From Remicade] Allergy Anaphylaxis Verified 10/06/15 18:37 Date of admission: 01/27/18 18:44 Primary care physician: Zaire Mathews DO - Constitutional Vitals: Temp Pulse Resp BP Pulse Ox 98.5 F 64 16 120/65 97 02/01/18 06:48 02/01/18 06:48 02/01/18 06:48 02/01/18 06:48 02/01/18 06:48 General appearance: Present: A&O X 3, answers questions appropriately - Head Head exam: Present: atraumatic, normocephalic - Respiratory Respiratory exam: Present: CTAB. Absent: accessory muscle use, rales, rhonchi, wheezes - Cardiovascular Cardiovascular exam: Present: RRR, +S1, +S2. Absent: diastolic murmur, gallop, rubs, systolic murmur - GI/Abdominal GI/Abdominal exam: Present: normal bowel sounds, soft, no peritoneal signs. Absent: distended, tenderness - Extremities Exam Extremities exam: Present: warm, radial pulses palpable and symmetrical. Absent : calf tenderness, cyanotic, pedal edema - Neurological Exam Neurological exam: Present: CN II-XII intact, oriented X3, no focal deficits. Absent: pronater drift, facial droop, speech deficit - Patient Status Disposition: Home, Self-Care Condition: Good - Discharge Instructions Instructions: Amlodipine (By mouth), Supraventricular Tachycardia (DC), Dehydration (DC), Acute Kidney Injury (DC) Follow Up With: Zaire Mathews DO [Primary Care Provider] - 02/05/18 10:20 am (Please follow up as schedule...) Rosemary Raman MD [Partnered Physician] - 05/15/18 9:05 am (Please follow up as schedule....)
[2018-02-01] MEDS: Famotidine 20 MG TABLET PO SCH (08:05)
[2018-02-01] MEDS: Lisinopril 20 MG TABLET PO SCH (08:06)
[2018-02-01] MEDS: Cyanocobalamin (B-12) 1,000 MCG TABLET PO SCH (08:06)
[2018-02-01] MEDS ORDERED: amLODIPine 5 MG TABLET PO SCH (09:00)
--- NOTE | 2018-02-01 12:11 | Gastroenterology Progress Note ---
Date of Encounter: 02/01/18 Time of Encounter: 09:45 - Assessment and plan (1) Crohn disease Status: Chronic Assessment and plan: Status post colonoscopy, will be discharged on budesonide, follow up with Dr Raman in the office to discuss starting Entyvio. Qualifiers: Gastrointestinal tract location: unspecified location Digestive disease complication type: without complication Qualified Code(s): K50.90 - Crohn's disease, unspecified, without complications (2) Anemia Status: Chronic Assessment and plan: Monitor h&h and iron studies. Qualifiers: Anemia type: B12 deficiency Vitamin B12 deficiency anemia type: unspecified B12 deficiency Qualified Code(s): D51.9 - Vitamin B12 deficiency anemia, unspecified - Time Spent With Patient Total time spent is greater than 50% in coordination of care (as documented) at patient's floor/unit and/or counseling patient: - Subjective Interval history: Pt is status post colonoscopy. She denies any diarrhea or bloody BMs this am. She denies abdominal pain, nausea or vomiting. - Constitutional Vitals: Temp Pulse Resp BP Pulse Ox 98.5 F 64 16 120/65 97 02/01/18 06:48 02/01/18 06:48 02/01/18 06:48 02/01/18 06:48 02/01/18 06:48 Exam: CONSTITUTIONAL:~alert, no acute distress, flat affect.~HEAD:~normocephalic.~EYES :~no jaundice.~NECK:~no obvious swelling.~HEART:~regular rate and rhythm, no murmurs.~LUNGS:~bilateral good air entry.~ABDOMEN:~non distended, soft, non tender, no masses palpable, no organomegaly.~RECTAL EXAM:~Deferred.~EXTREMITIES: ~no clubbing, cyanosis or edema.~SKIN:~no stigmata of chronic liver disease.~ NEUROLOGIC:~no obvious focal defect.~~~~ Results - Labs CBC & Chem 7: 02/01/18 04:43 01/31/18 03:45 Labs: Last Result ESR 21 mm/hr (0-15) H 01/30/18 03:20 Calcium 8.1 mg/dL (8.6-10.3) L 01/31/18 03:45 Iron 83 mcg/dL (50-170) 01/28/18 05:16 % Saturation 23 % (15-50) 01/28/18 05:16 Transferrin 259 mg/dL (203-362) 01/28/18 05:16 Ferritin 28 ng/ml (10-120) 01/28/18 05:16 C-Reactive Protein 10 mg/L (Less than 10) H 01/30/18 03:20 Entire Visit Hgb 8.9 g/dL (11.5-15.4) L 02/01/18 04:43 Hct 28.9 % (35.3-44.9) L 02/01/18 04:43 Ferritin 28 ng/ml (10-120) 01/28/18 05:16 Total Bilirubin 0.6 mg/dL (0.3-1.0) 01/28/18 05:16 AST 9 Units/L (13-39) L 01/28/18 05:16 ALT 9 Units/L (7-52) 01/28/18 05:16 Lipase 54 Units/L (11-82) 01/27/18 11:32 Consult Discharge Plan - Plan Instructions: Amlodipine (By mouth), Supraventricular Tachycardia (DC), Dehydration (DC), Acute Kidney Injury (DC) Referrals: Zaire Mathews DO [Primary Care Provider] - 02/05/18 10:20 am (Please follow up as schedule...) Rosemary Raman MD [Partnered Physician] - 02/20/18 9:05 am (Please follow up as schedule....) Prescriptions: amLODIPine [Norvasc] 5 mg PO DAILY #30 tablet Budesonide [Uceris] 9 mg PO DAILY #30 tabdr...er Lisinopril [Zestril] 20 mg PO DAILY #60 tablet
== END 2018-02-01 10:58 | disposition home or self-care (01) | DRG 682 ==
LOC: 2ANU 10:04 → EMEROO 10:04 → 2NNU 15:08 → SUATTDRO 18:44 → 2ANU 01-30 10:00
PROVIDERS: ADMIT Family Medicine; ATTEND Student in an Organized Health Care Education/Training Program
PROC: ENDOCBX (2018-01-31 16:00)

== ENCOUNTER 2021-10-17 11:33 | Inpatient (IN) ==
[~2021-10-17 11:33] MED LIST: Piperacillin/Tazobactam 3.375 GM in 0.9 % Sodium Chloride Mini Bag 100 ML IVPB SCH
[2021-10-17] MEDS ORDERED: 0.9 % Sodium Chloride 2,000 ML ONE (12:15)
[2021-10-17] MEDS ORDERED: 0.9 % Sodium Chloride 1,000 ML IVC SCH ×2 (12:15→14:00)
[2021-10-17 12:40] LABS: Basophils # 0.1 K/mcL (0.0-0.2); Basophils % 0.6 %; Hematocrit 39.4 % (35.3-44.9); Hemoglobin 12.3 g/dL (11.5-15.4); Immature Granulocytes % 0.9 % (0-4); Lymphocytes # 1.8 K/mcL (0.6-4.6); Lymphocytes % 17.5 %; Mean Corpuscular HGB Conc 31.2 g/dL (31.6-35.5); Mean Corpuscular Hemoglobin 25.7 pg (28.0-33.3); Mean Corpuscular Volume 82.4 fL (83.0-100.0); Mean Platelet Volume 10.7 fL (9.4-12.4); Monocytes # 0.7 K/mcL (0.0-1.3); Monocytes % 6.9 %; Neutrophils # 7.8 K/mcL (1.6-8.9); Platelet Count 571 K/mcL (140-400); Red Blood Count 4.78 M/mcL (3.82-4.97); Segmented Neutrophils % 74.1 %; White Blood Count 10.5 K/mcL (4.3-11.1)
[2021-10-17 12:51] LABS: VBG HCO3 12 mEq/L (21-27); VBG PCO2 24 mmHg (41-51); VBG PH 7.31 pH Units (7.32-7.42); VBG PO2 69 mmHg (25-50)
[2021-10-17 12:52] LABS: Albumin 4.1 g/dL (3.5-5.7); Albumin/Globulin Ratio 1.1 (1.1-2.2); Bilirubin,Total 0.3 mg/dL (0.3-1.0); Calcium 7.7 mg/dL (8.6-10.3); Globulin 3.7 g/dL (2.4-3.5); Magnesium 1.6 mg/dL (1.6-2.6); Potassium 3.7 mEq/L (3.5-5.1); Total Protein 7.8 g/dL (6.4-8.9); Troponin I 0.06 ng/mL (< 0.04)
[2021-10-17] MEDS ORDERED: Piperacillin/Tazobactam 3.375 GM in 0.9 % Sodium Chloride Mini Bag 100 ML IVPB ONE (13:15)
[2021-10-17 13:20] LABS: Influenza A PCR Negative (Negative); Influenza B PCR Negative (Negative); Resp. Syncytial Virus PCR Negative (Negative); SARS-CoV-2 by PCR (In House) Negative (Negative)
[2021-10-17 13:23] LABS: Bacteria,Urine Few per hpf (None-Few); Bilirubin,Urine Negative (Negative); Blood,Urine Negative (Negative); Clarity,Urine Turbid (Clear); Color,Urine Yellow (Yellow); Glucose,Urine (UA) Normal (Normal); Hyaline Casts,Urine Many per lpf (None Seen); Ketones,Urine Negative (Negative); Leukocyte Esterase,Urine Moderate (Negative); Mucus,Urine Few per lpf (None-Few); Nitrite,Urine Negative (Negative); Protein,Urine 70 mg/dL (Neg-Trace); Specific Gravity,Urine 1.028 (1.010-1.025); Squamous Epithelial Cell,Urine Moderate per hpf (None-Few); Urobilinogen,Urine Normal (Normal); WBC,Urine 15-30 per hpf (0-3)
[2021-10-17] MEDS ORDERED: Norepinephrine 4 MG/254 ML IV.SOLN IVC SCH (13:30)
[2021-10-17] MEDS ORDERED: Ondansetron 4 MG/2 ML VIAL IVP ONE (13:53)
[2021-10-17] MEDS ORDERED: Naloxone 0.4 MG/ML INJ IVP PRN (16:39)
[2021-10-17 17:15] LABS: INR 1.2; Prothrombin Time 13.2 Seconds (9.4-12.1)
[2021-10-17] MEDS: Sodium Bicarbonate 150 MEQ in Water for inj. (sterile) 1,000 ML IVC SCH (17:41)
[2021-10-17] MEDS ORDERED: diazePAM 10 MG/2 ML SYRINGE IVP ONE (20:09)
[2021-10-17] MEDS ORDERED: Piperacillin/Tazobactam 3.375 GM in 0.9 % Sodium Chloride Mini Bag 100 ML IVPB SCH (21:15)
[2021-10-17] MEDS ORDERED: *HR* Labetalol 20 MG/4 ML SYRINGE IVP ONE (23:50)
[2021-10-17] MEDS ORDERED: *HR* Metoprolol 5 MG/5 ML VIAL IVP ONE (23:55)
[2021-10-18] MEDS: Piperacillin/Tazobactam 3.375 GM in 0.9 % Sodium Chloride Mini Bag 100 ML IVPB SCH ×2 (00:07→15:44)
[2021-10-18 00:36] LABS: Basophils # 0.1 K/mcL (0.0-0.2); Basophils % 0.8 %; Hematocrit 32.8 % (35.3-44.9); Immature Granulocytes % 0.5 % (0-4); Lymphocytes # 1.8 K/mcL (0.6-4.6); Lymphocytes % 21.1 %; Mean Corpuscular HGB Conc 30.2 g/dL (31.6-35.5); Mean Corpuscular Hemoglobin 25.8 pg (28.0-33.3); Mean Corpuscular Volume 85.6 fL (83.0-100.0); Mean Platelet Volume 10.3 fL (9.4-12.4); Monocytes # 0.8 K/mcL (0.0-1.3); Monocytes % 8.6 %; Platelet Count 354 K/mcL (140-400); Red Blood Count 3.83 M/mcL (3.82-4.97); White Blood Count 8.7 K/mcL (4.3-11.1)
[2021-10-18 00:38] LABS: Hemoglobin 9.9 g/dL (11.5-15.4)
[2021-10-18 00:48] LABS: INR 1.1; Prothrombin Time 12.7 Seconds (9.4-12.1)
[2021-10-18 00:57] LABS: Albumin 3.2 g/dL (3.5-5.7); Albumin/Globulin Ratio 1.2 (1.1-2.2); Bilirubin,Total 0.2 mg/dL (0.3-1.0); Calcium 6.6 mg/dL (8.6-10.3); Globulin 2.6 g/dL (2.4-3.5); Magnesium 1.3 mg/dL (1.6-2.6); Phosphorous 7.4 mg/dL (2.7-4.5); Potassium 2.9 mEq/L (3.5-5.1); Total Protein 5.8 g/dL (6.4-8.9)
[2021-10-18 01:27] LABS: Estimated Average Glucose 123 mg/dl; Hemoglobin A1C 5.9 %
[2021-10-18] MEDS ORDERED: 0.9 % Sodium Chloride 1,000 ML IV ONE (05:40)
[2021-10-18] MEDS ORDERED: Calcium Gluconate 1gm/50mL 1 GM/50 ML BAG IVPB ONE (07:35)
[2021-10-18] MEDS: Sodium Bicarbonate 150 MEQ in Water for inj. (sterile) 1,000 ML IVC SCH ×2 (08:30→16:12)
[2021-10-18 12:53] LABS: Calcium 7.1 mg/dL (8.6-10.3); Potassium 2.9 mEq/L (3.5-5.1)
[2021-10-18] MEDS ORDERED: Perflutren Lipid Microsphere 1.3 ML in 0.9 % Sodium Chloride 8.7 ML IVP PRN (13:57)
[2021-10-18] MEDS: *HR* Promethazine 25 MG/ML VIAL IM PRN (16:10)
[2021-10-18 22:58] LABS: Calcium 7.7 mg/dL (8.6-10.3); Potassium 3.1 mEq/L (3.5-5.1)
[2021-10-19] MEDS: *HR* Promethazine 25 MG/ML VIAL IM PRN ×2 (01:43→13:00)
[2021-10-19] MEDS: Piperacillin/Tazobactam 3.375 GM in 0.9 % Sodium Chloride Mini Bag 100 ML IVPB SCH ×2 (01:58→15:10)
[2021-10-19] MEDS: Sodium Bicarbonate 150 MEQ in Water for inj. (sterile) 1,000 ML IVC SCH (02:10)
[2021-10-19 04:28] LABS: Basophils % 0.5 %; Hematocrit 28.1 % (35.3-44.9); Hemoglobin 9.1 g/dL (11.5-15.4); Immature Granulocytes % 0.4 % (0-4); Lymphocytes # 1.2 K/mcL (0.6-4.6); Lymphocytes % 16.6 %; Mean Corpuscular HGB Conc 32.4 g/dL (31.6-35.5); Mean Corpuscular Hemoglobin 26.5 pg (28.0-33.3); Mean Corpuscular Volume 81.7 fL (83.0-100.0); Mean Platelet Volume 10.1 fL (9.4-12.4); Monocytes # 0.6 K/mcL (0.0-1.3); Monocytes % 8.4 %; Neutrophils # 5.4 K/mcL (1.6-8.9); Platelet Count 318 K/mcL (140-400); Red Blood Count 3.44 M/mcL (3.82-4.97); Red Cell Distribution Width 15.8 % (11.5-14.5); Segmented Neutrophils % 74.1 %; White Blood Count 7.4 K/mcL (4.3-11.1)
[2021-10-19 04:37] LABS: VBG Ionized Calcium 1.07 mmol/L (1.15-1.35)
[2021-10-19 04:51] LABS: Albumin 2.9 g/dL (3.5-5.7); Albumin/Globulin Ratio 1.3 (1.1-2.2); Bilirubin,Total 0.3 mg/dL (0.3-1.0); Calcium 7.7 mg/dL (8.6-10.3); Globulin 2.2 g/dL (2.4-3.5); Phosphorous 3.3 mg/dL (2.7-4.5); Potassium 3.1 mEq/L (3.5-5.1); Total Protein 5.1 g/dL (6.4-8.9)
[2021-10-19] MEDS: Acetaminophen 325 MG TABLET PO PRN (08:01)
[2021-10-19] MEDS: Potassium Chloride Elixir 20 MEQ/15 ML UDC PO SCH ×2 (13:00→21:25)
[2021-10-20] MEDS: Ondansetron 4 MG/2 ML VIAL IVP PRN ×3 (00:37→21:39)
[2021-10-20] MEDS: Piperacillin/Tazobactam 3.375 GM in 0.9 % Sodium Chloride Mini Bag 100 ML IVPB SCH ×2 (02:53→14:18)
[2021-10-20 06:43] LABS: Basophils % 0.4 %; Hematocrit 29.2 % (35.3-44.9); Hemoglobin 9.2 g/dL (11.5-15.4); Immature Granulocytes % 0.4 % (0-4); Lymphocytes # 1.2 K/mcL (0.6-4.6); Lymphocytes % 11.9 %; Mean Corpuscular HGB Conc 31.5 g/dL (31.6-35.5); Mean Corpuscular Hemoglobin 26.2 pg (28.0-33.3); Mean Corpuscular Volume 83.2 fL (83.0-100.0); Mean Platelet Volume 10.7 fL (9.4-12.4); Monocytes # 0.8 K/mcL (0.0-1.3); Monocytes % 7.5 %; Platelet Count 312 K/mcL (140-400); Red Blood Count 3.51 M/mcL (3.82-4.97); Segmented Neutrophils % 79.8 %; White Blood Count 10.1 K/mcL (4.3-11.1)
[2021-10-20 07:00] LABS: Albumin/Globulin Ratio 1.4 (1.1-2.2); Bilirubin,Total 0.3 mg/dL (0.3-1.0); Calcium 7.7 mg/dL (8.6-10.3); Globulin 2.2 g/dL (2.4-3.5); Magnesium 1.6 mg/dL (1.6-2.6); Potassium 3.2 mEq/L (3.5-5.1); Total Protein 5.2 g/dL (6.4-8.9)
[2021-10-20 07:01] LABS: Iron 12 mcg/dL (50-170)
[2021-10-20 07:20] LABS: Ferritin 23 ng/mL (10-120)
[2021-10-20] MEDS ORDERED: Magnesium Sulfate 1 GM/102 ML PIGGYBACK IVPB ONE (08:24)
[2021-10-20 13:01] LABS: % Iron Saturation 3 % (15-50); Transferrin 261 mg/dL (203-362)
[2021-10-20] MEDS: Acetaminophen 325 MG TABLET PO PRN (17:16)
[2021-10-21] MEDS: Piperacillin/Tazobactam 3.375 GM in 0.9 % Sodium Chloride Mini Bag 100 ML IVPB SCH (01:51)
[2021-10-21 02:12] LABS: Hematocrit 30.6 % (35.3-44.9); Hemoglobin 9.4 g/dL (11.5-15.4); Mean Corpuscular HGB Conc 30.7 g/dL (31.6-35.5); Mean Corpuscular Hemoglobin 26.3 pg (28.0-33.3); Mean Corpuscular Volume 85.7 fL (83.0-100.0); Mean Platelet Volume 10.3 fL (9.4-12.4); Platelet Count 303 K/mcL (140-400); Red Blood Count 3.57 M/mcL (3.82-4.97); Red Cell Distribution Width 16.1 % (11.5-14.5); White Blood Count 9.7 K/mcL (4.3-11.1)
[2021-10-21 03:29] LABS: Calcium 8.4 mg/dL (8.6-10.3); Magnesium 1.7 mg/dL (1.6-2.6); Potassium 4.5 mEq/L (3.5-5.1)
[2021-10-21 03:53] VITALS: O2SAT 96
[2021-10-21] MEDS: Ondansetron 4 MG/2 ML VIAL IVP PRN (08:16)
[2021-10-21 10:31] VITALS: BP 135/70; PULSE 50; TEMP 98
== END 2021-10-21 13:20 | disposition home or self-care (01) | DRG 871 ==
LOC: 2ANU 11:33 → EMEROOARM 11:33 → 2ANU 18:13 → SUATTDRO 10-18 09:40 → 2ANU 10-20 02:20
PROVIDERS: ADMIT Internal Medicine; ATTEND Internal Medicine